=== PATIENT | male | born 1945 | race Caucasian/White ===

== ENCOUNTER 2025-03-30 12:20 | Inpatient (IN) | payer MEDICARE, SELFPAY ==
[2025-03-30 12:58] VITALS: BP 182/95; BP 192/91; PULSE 64; RESP 18; TEMP 36.6; O2SAT 95; BMI 32.3
--- NOTE | 2025-03-30 13:32 | PD.EDRME ---
Rapid Medical Screening Exam RME Arrival date/time: 03/30/25 12:20 Chief Complaint: Shortness of Breath/Dyspnea Time Seen by Provider: 03/30/25 12:27 Vital signs: Vital Signs Temperature 97.9 F 03/30/25 12:58 Pulse Rate 64 03/30/25 12:58 Respiratory Rate 18 03/30/25 12:58 Blood Pressure 182/95 H 03/30/25 12:58 Pulse Oximetry (%) 95 03/30/25 12:58 Oxygen Delivery Method Room Air 03/30/25 12:58 Vital signs reviewed by provider: Yes RME Narrative: 80-year-old male sent in by PCP (Dr. Fleming) for evaluation of dyspnea. Patient reports chest x-ray in clinic today showed pleural effusion. Patient reports worsening dyspnea x 1 week with intermittent chills and substernal chest pain. Patient notes positive flu test x 1 week ago.
--- NOTE | 2025-03-30 13:33 | EKG_ITS ---
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
--- NOTE | 2025-03-30 13:33 | XR_ITS ---
Examination: PA lateral chest 2 views TECHNIQUE: Upright PA lateral chest 2 views Date and time: 03/30/2025 at 1340 hours Comparison May 08, 2023 INDICATIONS: Chest pain shortness of breath beginning 3 days ago. FINDINGS: Normal heart size Central vascular congestion Suspicious for early pneumonia left base Suspicious for early pneumonia right upper lobe Intact osseous structures IMPRESSION: Central vascular congestion Suspicious for early pneumonia left base and right upper lobe
[2025-03-30 14:22] LABS: Basophils # (Auto) 0.0 Thou/mm3 (0.0-0.2); Basophils % (Auto) 0 % (0-2.5); Eosinophils # (Auto) 0.2 Thou/mm3 (0.0-0.5); Eosinophils % (Auto) 2 % (0-10); Hematocrit 31.1 % (41.0-53.0); Hemoglobin 10.3 g/dL (13.5-16.0); Immature Granulocytes Auto 0.17 Thou/mm3 (0.00-0.00); Lymphocytes # (Auto) 1.2 Thou/mm3 (1.0-4.8); Lymphocytes % (Auto) 13 % (10-50); Mean Corpuscular HGB Conc 33.1 g/dl (31.0-37.0); Mean Corpuscular Hemoglobin 30.3 pg (25.0-35.0); Mean Corpuscular Volume 92 fL (80-100); Monocytes # (Auto) 0.7 Thou/mm3 (0.0-0.8); Monocytes % (Auto) 7 % (0-12); Neutrophils # (Auto) 6.7 Thou/mm3 (1.8-7.7); Neutrophils % (Auto) 76 % (37-80); Nucleated Red Blood Cell # 0.00 Thou/mm3 (0.00-0.00); Nucleated Red Blood Cell % 0 /100 WBC (0); Platelet Count 278 Thou/mm3 (140-440); RDW Standard Deviation 42.5 fL (35.1-43.9); Red Blood Count 3.40 Miln/mm3 (4.50-5.90); White Blood Count 8.9 Thou/mm3 (3.8-10.6)
[2025-03-30 14:35] LABS: INR 1.1 (0.9-1.3); Partial Thromboplastin Time 34.5 Seconds (22.0-36.0); Prothrombin Time 12.3 Seconds (9.0-12.2)
[2025-03-30 14:54] LABS: Alanine Aminotransferase 32 U/L (10-49); Albumin, Serum 4.2 gm/dL (3.4-4.8); Albumin/Globulin Ratio 1.4 (1.2-2.2); Alkaline Phosphatase 55 U/L (46-116); Anion Gap 14 (7-16); Aspartate Amino Transferase 18 U/L (0-34); B-Type Natriuretic Peptide 899 pg/mL (0-100); BUN/Creatinine Ratio 11 Ratio (12-20); Bilirubin,Total 0.3 mg/dL (0.3-1.2); Blood Urea Nitrogen 74 mg/dL (9-23); Calcium 9.7 mg/dL (8.3-10.6); Calcium (Corrected) 9.7 mg/dL (8.5-10.1); Carbon Dioxide 18.3 mMol/L (20.0-31.0); Chloride 108 mMol/L (98-107); Creatinine (Component) 6.8 mg/dL (0.6-1.3); Estimated Creatinine Clearance 9.8 mL/min (>60); Globulin 3.0 gm/dL (2.3-3.5); Glucose 89 mg/dL (74-106); LDH (Lactate Dehydrogenase) 191 U/L (120-246); Magnesium 2.0 mg/dL (1.6-2.6); Osmolality,Calculated 300 (275-295); Potassium 5.0 mMol/L (3.4-5.1); Sodium 140 mMol/L (136-145); Total Protein 7.2 gm/dL (5.7-8.2); eGFR 8 See Note
[2025-03-30 15:12] LABS: Troponin I 0.269 ng/mL (0.0-0.045)
[2025-03-30 15:16] LABS: Collection Type, Urine Clean Catch
[2025-03-30 15:28] LABS: Amphetamine/Methamp Scrn,U Negative (Negative); Bacteria,Urine Rare; Barbiturate Screen,Urine Negative (Negative); Benzodiazepines Screen,Urine Negative (Negative); Benzoylecgonine Screen, Ur Negative (Negative); Bilirubin,Urine Negative (Negative); Blood,Urine Trace (Negative); Clarity,Urine Clear (Clear/Hazy); Color,Urine Lt-Yellow (Lt Yel-Yel); Fentanyl Screen,Urine Negative (Negative); Glucose, Urine Negative (Negative); Ketones,Urine Negative (Negative); Leukocyte Esterase,Urine Negative (Negative); Nitrite,Urine Negative (Negative); Opiate Screen,Urine Negative (Negative); PH,Urine 5.5 (5.0-7.0); Protein,Urine 1+ (Neg - Trace); RBC,Urine 1 /hpf (0-3); Specific Gravity,Urine 1.016 (1.001-1.035); Squamous Epithelial Cell,Urine 1 /hpf (0-5); THC Screen,Urine Negative (Negative); Urobilinogen,Urine Negative mg/dL (0.0-1.0); WBC,Urine 3 /hpf (0-5)
[2025-03-30 15:59] LABS: Troponin I 0.267 ng/mL (0.0-0.045)
[2025-03-30 19:35] VITALS: BP 202/120; BP 212/108; PULSE 82; RESP 18; TEMP 36.7; O2SAT 95
[2025-03-30 19:46] VITALS: PULSE 71
[2025-03-30 19:52] VITALS: BP 187/88; PULSE 75; RESP 24; O2SAT 93
[2025-03-30 20:14] LABS: Troponin I 0.276 ng/mL (0.0-0.045)
[2025-03-30] MEDS: ASPIRIN 81 MG CHEW 162 MG PO (20:31)
--- NOTE | 2025-03-30 20:37 | PD.EDSOB ---
ED SOB =RME/HPI General Chief Complaint: Shortness of Breath/Dyspnea Stated Complaint: sent by Dr. Fleming for fluid around lungs Time Seen by Provider: 03/30/25 12:27 Arrival date/time: 03/30/25 12:20 RME / HPI RME / HPI Narrative: 80-year-old male sent in by PCP (Dr. Fleming) for evaluation of dyspnea. Patient reports chest x-ray in clinic today showed pleural effusion. Patient reports worsening dyspnea x 1 week with intermittent chills and substernal chest pain. Patient notes positive flu test x [address] week ago[address] ------- Dr. Perales?s Main ED Evaluation: 80yo male with a history of HTN, HLD presents to the ED after being sent over by his PCP. Patient states he was seen by his PCP, Dr. Fleming in [place], today and was sent over due to having fluid in the lungs . Patient states he's had persistent N/V/D for the last 1 week. Patient reports associated chest pain when he takes a deep breathe, fever, chills, and sweating. Patient denies any hematemesis, hematochezia, melena or any other associated symptoms. He does not have a interpreter. No previous abdominal surgeries. Related Data Home Medications ?Medication ?Instructions ?Recorded ?Confirmed amlodipine 10 mg tablet 10 mg PO QDAY 03/30/25 03/30/25 lisinopril 20 mg tablet 20 mg PO QDAY 03/30/25 03/30/25 simvastatin 20 mg tablet 20 mg PO QPM 03/30/25 03/30/25 Previous Rx's ?Medication ?Instructions ?Recorded ibuprofen 600 mg tablet 600 mg PO TID PRN pain #30 tabs 05/08/23 Allergies Allergy/AdvReac Type Severity Reaction Status Date / Time Sulfa (Sulfonamide Allergy Verified 03/30/25 12:25 Antibiotics) Review of Systems Review of Systems Systems Reviewed: All systems reviewed, normal except as documented Past Medical History Past Medical History CARDIAC: Positive Cardiac Disorders, Hypercholesterolemia and Hypertension; Negative Congestive Heart Failure RESPIRATORY: Negative Chronic Obstructive Pulmonary Disease (COPD) GENITOURINARY: Negative Renal Disease ENDOCRINE: Negative Diabetes Mellitus Type 1 or Diabetes Mellitus Type 2 Surgical History SURGICAL: Positive Hip Sx (RIGHT 2013) Social History SMOKING STATUS: Never smoker ED Exam Narrative Physical exam: GENERAL APPEARANCE: alert and oriented x 4, well-developed, well-nourished, no acute distress VITALS: All vitals were reviewed and the pulse ox is 93% on room air, which is slightly hypoxic according to my interpretation. HEENT: Normocephalic, atraumatic; pupils equal, round, reactive to light; EOMI; mucous membranes pink, moist; oropharynx clear NECK: Supple LUNGS: CTABL; no wheezes, no rales, no rhonchi HEART: Regular rate, regular rhythm; normal S1, S2; no murmurs ABDOMEN: moderately distended; hyperactive BS; soft, no tenderness, no guarding, no rebound; no masses, no organomegaly, no hernia BACK: no CVA tenderness EXTREMITIES: atraumatic; no edema NEUROLOGIC: awake; alert and oriented x4; cranial nerves II-XII grossly intact; no focal sensory or motor deficits PSYCHIATRIC: appropriate mood and affect SKIN: warm, dry, normal color; no rashes Course Quality Measures none Orders Category Date Time Status Bedside Influenza A&B Antigen Test NOW Care 03/30/25 19:51 Completed 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 START 00 Care 03/30/25 19:46 Active EKG (ED ONLY) *Do not use* NOW Care 03/30/25 13:33 Completed Insert [Insert IV] NOW Care 03/30/25 20:48 Active Consult to Nephrology Stat Cons 03/30/25 20:[address] abdomen pelvis wo con Stat Exams 03/30/25 20:37 Completed EKG (ED Only) Stat Exams 03/30/25 13:33 Draft XR chest 2V Stat Exams 03/30/25 13:33 Completed B-Type Natriuretic Peptide Stat Lab 03/30/25 14:10 Completed CBC Stat Lab 03/30/25 14:10 Completed COVID-19 Antigen (In-House) Stat Lab 03/30/25 19:55 Completed Comprehensive Metabolic Panel Stat Lab 03/30/25 14:10 Completed Drug Screen,Urine Stat Lab 03/30/25 14:52 Completed LDH (Lactate Dehydrogenase) Stat Lab 03/30/25 14:10 Completed Lactic Acid [Lactate (Lactic Acid)] Stat Lab 03/30/25 21:22 Completed Magnesium Stat Lab 03/30/25 14:10 Completed Partial Thromboplastin Time Stat Lab 03/30/25 14:10 Completed Procalcitonin Stat Lab 03/30/25 21:22 Completed Prothrombin Time with INR Stat Lab 03/30/25 14:10 Completed Troponin I Stat Lab 03/30/25 14:10 Completed Troponin I Stat Lab 03/30/25 15:30 Completed Troponin I Stat Lab 03/30/25 19:11 Completed Urinalysis Stat Lab 03/30/25 14:52 Completed c diff [Clostridium Difficile PCR] Stat Lab 03/30/25 Ordered Aspirin Chew Med 03/30/25 20:25 Discontinued 162 mg PO X1 ONE Ondansetron Inj [Zofran Inj] Med 03/30/25 20:37 Discontinued 4 mg IVP X1 ONE Sodium Chloride 0.9% 1000 ml [Ns] 1,000 ml Med 03/30/25 20:48 Active IV 75 mls/hr Vital Signs Vital signs: Vital Signs Temperature 97.9 F 03/30/25 12:58 Pulse Rate 64 03/30/25 12:58 Respiratory Rate 18 03/30/25 12:58 Blood Pressure 182/95 H 03/30/25 12:58 Pulse Oximetry (%) 95 03/30/25 12:58 Oxygen Delivery Method Room Air 03/30/25 12:58 Shortness of Breath / Dyspnea MDM Narrative MDM Narrative:: Scribe Attestation: 03/30/25 Margaret Troy am scribing for and in the presence of Dr. Perales. Patient data External records reviewed:: [facility] previous records (Per chart review, patient was seen here on 05/08/23 for acute UTI.) Clinical information provided by:: patient Social determinants that could affect healthcare access:: none Patient has the following chronic illnesses:: HTN, HLD How is presenting disease/condition affected by chronic disease/condition?: uneffected by Evaluation data The following diagnostics were reviewed and interpreted by me:: lab results and radiology exam(s) Lab and/or radiology exams considered but not ordered:: none Interpretation Summary: CBC normal, Creatinine 6.8, BUN 74, Initial troponin 0.269, 2nd troponin 0.267, 3rd troponin 0.276, BNP 899, UA unremarkable, UDS negative. COVID/Influenza negative. EKG done at 1336, NSR, rate of 67, mild T-wave inversion in V1, mild artifact, no acute ischemia, according to my interpretation. [facility] Report Signed Patient: FARIHA LOUIS [facility]. Record#: [id number] Birthdate: 1945 Age/Sex: 80 / M Location: [facility]X Attending Dr: Ordering Physician: Ben Jensen PA-C Date of Service: 03/30/25 Procedure(s): XR chest 2V Accession Number(s): [id number] cc: Ben Jensen PA-C; Bright Macedo MD~ Examination: PA lateral chest 2 views TECHNIQUE: Upright PA lateral chest 2 views Date and time: 03/30/2025 at 1340 hours Comparison May 08, 2023 INDICATIONS: Chest pain shortness of breath beginning 3 days ago. FINDINGS: Normal heart size Central vascular congestion Suspicious for early pneumonia left base Suspicious for early pneumonia right upper lobe Intact osseous structures IMPRESSION: Central vascular congestion Suspicious for early pneumonia left base and right upper lobe Dictated By: Bright Macedo MD Signed By: <Electronically signed by Bright Macedo MD in [place]> 03/30/25 1346 [facility] Report Signed Patient: FARIHA LOUIS [facility]. Record#: [id number] Birthdate: 1945 Age/Sex: 80 / M Location: SERX Attending Dr: Ordering Physician: Germaine Perales MD Date of Service: 03/30/25 Procedure(s): CT abdomen pelvis wo con Accession Number(s): [id number] cc: Bright Macedo MD; NO PRIMARY/FAMILY,PHYSICIAN; Germaine Perales MD~ Examination: CT abdomen and pelvis without contrast. Coronal 3-D reconstructions. Sagittal 2-D reconstructions. Date and time of exam:March 30, 2025, 2055 hours INDICATIONS: Diarrhea abdominal pain today CTDI: vol (mGy): 11. DLP: (mGycm): 716 Technique: Axial images of the abdomen have been obtained, 3 mm slice thickness Intravenous contrast material has not been administered. Low dose protocols were performed. One or more of the following dose reduction techniques were used; automated exposure control, adjustment of the mA and/or KV according to patient size, use of iterative reconstruction technique. Findings: Pulmonary edema, mild in the lung aguilera Mild to moderate enlargement cardiac contour. 17 mm left lobe liver cyst No gallstones No pancreatic mass Perinephric stranding No hydronephrosis renal or ureteral calculi Aorta normal size 12 mm fat-containing umbilical hernia No pericecal inflammatory change No bowel obstruction No diverticulitis Urinary bladder intact Detail in the pelvis is obscured by the right hip hemiarthroplasty Diffuse advanced lumbar degenerative disc disease The rectum is not well visualized but there appears to be rectal wall thickening IMPRESSION: Mild pulmonary edema in the lung aguilera Perinephric stranding. No obstruction or CT findings of appendicitis Rectal wall appears thickened, consider proctitis, recommend elective colonoscopy to exclude early rectal tumor Dictated By: Bright Macedo MD Signed By: <Electronically signed by Bright Macedo MD in [place]> 03/30/25 9211 Medications / Prescriptions Medications or Prescriptions considered but not ordered:: none Medication administrations:: Medication Administration History Sodium Chloride (Ns) 1,000 mls @ 75 mls/hr IV .[id number] [facility] Stop: 04/29/25 20:47 Last Admin: 03/30/25 21:12 Dose: 75 mls/hr Documented By: KIM Discontinued Medications Aspirin (Aspirin 81 Mg Chew) 162 mg PO X1 ONE Stop: 03/30/25 20:26 Last Admin: 03/30/25 20:31 Dose: 162 mg Documented By: KIM Ondansetron HCl (Ondansetron Inj 2 Mg/Ml Inj 2 Ml) 4 mg IVP X1 ONE; Protocol Stop: 03/30/25 20:38 Last Admin: 03/30/25 21:54 Dose: Not Given Documented By: KIM Non-Admin Reason: Patient Refused see above Consultations Consultation(s) initiated? (list below): Yes Consultation #1 (Physician, Specialty, Details): Discussed case with Dr. Watkins from nephrology regarding consultation. Discussed patients ED course, exam findings, labs, and radiology results. Agrees to consult Time: 20:42 Consultation #2 (Physician, Specialty, Details): Discussed case with the resident physician, attending Dr. Morin from Hospitalist service regarding admission. Discussed patients ED course, exam findings, labs, and radiology results. The Hospitalist [agrees] to accept the patient for admission. Time: 22:11 Diagnosis Shortness of Breath Differential Diagnosis: community acquired pneumonia and other (ACS, pleural effusion, colitis, diverticulitis) Most likely diagnosis given after review of the tests above:: acute renal failure Admission Indicated Admission indicated?: indicated Admission Request Was there a request for admission?: Yes Admission Attestation Admission request attestation: Discussed case with [] from Hospitalist service regarding admission. Discussed patients ED course, exam findings, labs, and radiology results. The Hospitalist [agrees,declines] to accept the patient for admission. Disposition Plan Disposition Plan: Admit Discharge Plan Plan Patient Disposition: Admit Acute Care w/in Hospital Prescriptions/Referrals Prescriptions/Med Rec: No Action ibuprofen 600 mg tablet 600 mg PO TID PRN (Reason: pain) Qty: 30 0RF simvastatin 20 mg tablet 20 mg PO QPM lisinopril 20 mg tablet 20 mg PO QDAY amlodipine 10 mg tablet 10 mg PO QDAY Referrals: No Primary/Family,Physician [Primary Care Provider] - In 1 week Problem List Clinical Impression: Acute renal failure (ARF) Patient/Caregiver Discharge Instructions Print Language: Chilean Stand Alone Forms: [facility] Award Info., Patient Portal Info Letter
[2025-03-30 20:43] LABS: COVID-19 Antigen (In-House) Negative (Negative)
[2025-03-30] MEDS: SODIUM CHLORIDE 0.9% 1000 ML 1,000 ML 75 ML IV (21:12)
[2025-03-30 21:34] LABS: Lactate (Lactic Acid) 1.5 mMol/L (0.4-2.0)
[2025-03-30 22:02] LABS: Procalcitonin 0.24 ng/ml (0.0-0.49)
--- NOTE | 2025-03-30 22:57 | ESHP_ITS ---
Documentation for date of: 03/30/25 HPI History of Present Illness Chief complaint: Shortness of breath History of present illness: 80-year-old male with past medical history of hypertension and hyperlipidemia who presented to the ED due to shortness of breath. Patient was sent by his PCP due to possible fluid in the lungs. Patient was diagnosed with influenza about a week ago. But continues to have flulike symptoms with fever and chills. Patient also endorses some nausea and nonbloody vomiting and nonbloody diarrhea onset about 4 days ago. However today he states no diarrhea episodes, nor vomiting episodes. He also states he has dry nonproductive cough with with bilateral lower extremity edema onset that he seemed to notice about 4 to 5 days ago. He does take amlodipine but states that the swelling of lower extremities is not the usual the last few days. He states he does not have a hx of heart failure nor does he see a sales and service consultant and has not had a echocardiogram in the past. At this time patient denies any headache, blurry vision, chest pain, abdominal pain, orthopnea, PND, recent travel, sick contacts. ED course: ED vitals: BP 182/95, HR 64, saturating 95% on room air ED labs: Normocytic anemia, bicarb 18.3, chloride 108, BUN 74, creatinine 6.8, EGFR 8, lactic acid normal, slight elevation in troponins, BNP 899, UA negative for UTI, U tox negative Chest x-ray shows right upper lobe and left base pneumonia with vascular congestion, EKG shows sinus rhythm, PMHx: As above SX Hx: Hip replacement, fever and tibia repairs Social Hx: Denies cigarette use, denies alcohol use, denies illicit substances including THC FH X: Unknown Review of Systems Review of Systems Systems Reviewed: All systems reviewed, normal except as documented Narrative Review of Systems: All 12 systems reviewed and found negative unless otherwise stated in the HPI. Exam Vital Signs Temp Pulse Resp BP Pulse Ox O2 Del Method 98.1 F 75 24 H 187/88 H 93 L Room Air 03/30/25 19:35 03/30/25 19:52 03/30/25 19:52 03/30/25 19:52 03/30/25 19:52 03/30/25 19:52 Narrative Exam Physical Exam GENERAL: NAD, AAOx3 HEENT: Moist mucosa. Eyes open, symmetrical, & clear CARDIO: Heart RRR, no obvious murmurs PULM: No noted coughing/dyspnea CTA B/L, no R/W/R GI: Abdomen soft, nondistended, no pain on palpation. BSx4 SKIN/MSK/EXT: +3 bilateral lower extremity edema, bilateral upper extremity edema, no pain on palpation. Pedal pulses present B/L NEURO: AAOx3, no focal neuro deficits, able to move all 4 extremities Results: Labs 03/31/25 04:41 03/30/25 14:10 Labs: Short CBC 03/30/25 Range/Units 14:10 WBC 8.9 (3.8-10.6) Thou/mm3 Hgb 10.3 L (13.5-16.0) g/dL Hct 31.1 L (41.0-53.0) % Plt Count 278 (140-440) Thou/mm3 BMP 03/30/25 14:10 Sodium 140 Potassium 5.0 Chloride 108 H Carbon Dioxide 18.3 L BUN 74 H Creatinine 6.8 H* Glucose 89 Calcium 9.7 Cardiac Enzymes 03/30/25 03/30/25 03/30/25 Range/Units 14:10 15:30 19:11 Troponin I 0.269 H* 0.267 H* 0.276 H* (0.0-0.045) ng/mL Liver Function 03/30/25 Range/Units 14:10 Total Bilirubin 0.3 (0.3-1.2) mg/dL AST 18 (0-34) U/L ALT 32 (10-49) U/L Alkaline Phosphatase 55 (46-116) U/L Albumin 4.2 (3.4-4.8) gm/dL Urine 03/30/25 Range/Units 14:52 Urine Color Lt-Yellow (Lt Yel-Yel) Urine Clarity Clear (Clear/Hazy) Urine pH 5.5 (5.0-7.0) Ur Specific [place] 1.016 (1.001-1.035) Urine Protein 1+ A (Neg - Trace) Urine Glucose (UA) Negative (Negative) Quality Measures Quality Measures none Advance care planning discussed with:: patient Medications Home Medications and Allergies Home Medications ?Medication ?Instructions ?Recorded ?Confirmed ?Type amlodipine 10 mg tablet 10 mg PO QDAY 03/30/2503/30 History lisinopril 20 mg tablet 20 mg PO QDAY 03/30/2503/30 History simvastatin 20 mg tablet 20 mg PO QPM 03/30/25 History Allergies Allergy/AdvReac Type Severity Reaction Status Date / Time Sulfa (Sulfonamide Allergy Verified 03/30/25 12:25 Antibiotics) Visit Medications Acetaminophen (Acetaminophen 325 Mg Tablet) 650 mg PO Q6H PRN PRN Reason: Fever >99.5 Stop: 04/29/25 22:48 Acetaminophen (Acetaminophen 325 Mg Tablet) 650 mg PO Q6H PRN PRN Reason: PAIN SCALE 1-3 (mild Stop: 04/29/25 22:48 Albuterol/Ipratropium (Albuterol/Ipratropium (Duoneb) Rt Svetlana 3 Ml Nebu) 3 ml INH Q2HR PRN PRN Reason: SHORTNESS OF BREATH OR WHEEZE Stop: 04/29/25 22:48 Albuterol/Ipratropium (Albuterol/Ipratropium (Duoneb) Rt Svetlana 3 Ml Nebu) 3 ml INH Q6HRRT [facility] Stop: 04/30/25 00:59 Bumetanide (Bumetanide Inj 0.25 Mg/Ml Vial 4 Ml) 1 mg IVP QDAY [facility] Stop: 04/30/25 08:59 Enoxaparin Sodium (Enoxaparin Sod Inj 40 Mg/0.4 Ml Syringe) 40 mg SC QDAY [facility] Stop: 04/14/25 08:59 Ondansetron HCl (Ondansetron Inj 2 Mg/Ml Inj 2 Ml) 4 mg IVP Q6H PRN; Protocol PRN Reason: NAUSEA OR VOMITING Stop: 04/29/25 22:48 Sodium Chloride (Sodium Chloride Rt 10% 15 Ml Nebu) 5 ml INH X1 ONE Stop: 03/30/25 22:50 Discontinued Medications Aspirin (Aspirin 81 Mg Chew) 162 mg PO X1 ONE Stop: 03/30/25 20:26 Last Admin: 03/30/25 20:31 Dose: 162 mg Sodium Chloride (Ns) 1,000 mls @ 75 mls/hr IV .[id number] [facility] Stop: 04/29/25 20:47 Last Admin: 03/30/25 21:12 Dose: 75 mls/hr Ondansetron HCl (Ondansetron Inj 2 Mg/Ml Inj 2 Ml) 4 mg IVP X1 ONE; Protocol Stop: 03/30/25 20:38 Last Admin: 03/30/25 21:54 Dose: Not Given Assessment & Plan Plan 80-year-old male with past medical history as stated above who presented to the ED due to flulike symptoms with fever chills, nausea, vomiting, diarrhea. #Acute hypoxic respiratory failure likely secondary to #Community-acquired pneumonia #?Heart failure Presented with clinical signs such as shortness of breath, dyspnea on exertion, bilateral leg swelling Presented with shortness of breath, fever, chills, dry nonproductive cough CXR: Showing vascular congestion, left base, right upper lobe pneumonia CT shows pulmonary edema in bilateral lung aguilera BNP:899 No echo on file ? Vancomycin ? Zosyn ? Follow-up cultures ? Follow-up RSV, cocci ? Follow-up C. difficile ? Breathing treatments as scheduled and as needed ? Echo ordered ? IV Bumex ? Keep K>4, Mg>2 ? Provide oxygen as required ? Strict I's and O's #Acute Kidney injury Was given IV fluids in the ED Baseline creatinine in 2022 was 1.0, current creatinine 6.8 CT abdomen pelvis shows some perinephric stranding no hydronephrosis ? Avoid nephrotoxins ? Renally dose medications ?Renal ultrasound ? Nephrology consulted, appreciate recs #Elevated troponins ? already downtrending no need to trend Chronic conditions: #Hypertension #Hyperlipidemia ?Pending med rec, resume home meds as tolerated Health Maintenance: Disposition: Telemetry Fluids: None Feeding: Low-sodium Thrombo prophylaxis: Lovenox Gastric Ulcer prophylaxis: None CODE STATUS: Full code Case discussed with my attending Dr. Donnell Francis MD PGY-1 Disclaimer: Despite multiple revisions, due to the dictation software being used, the document bellow may not be free of grammatical errors including phonetic/typographic errors. However, this does not deter from our commitment to providing health care in the patient's best interest in mind. Attending Provider Attestation/Addendum 80-year-old male patient. Hypertension hyperlipidemia complaining of shortness of breath and lower extremity edema. The patient recently had influenza flulike illness. The patient is progressively weak pulmonary edema on chest x-ray. He has elevated BUN of 74 and Creatinine 6.8. BP is slightly elevated. EKG showed sinus rhythm. CT scan showed no hydronephrosis no kidney stones. The patient was admitted for decompensated CHF, elevated troponin possible type II NSTEMI he has acute kidney injury.TX. Patient will need cardiology and nephrology consultation.
[2025-03-30 23:15] VITALS: BP 181/88; PULSE 73; RESP 22; TEMP 36.9; O2SAT 93
[2025-03-30 23:43] VITALS: BP 170/88; PULSE 71; PULSE 73; RESP 20; RESP 93; O2SAT 93
[2025-03-30] MEDS: cefTRIAXone/D5w 1gm IV premix 1 GM/50 ML BAG IV (23:49)
[2025-03-30 23:59] LABS: Troponin I 0.249 ng/mL (0.0-0.045)
[2025-03-31] VITALS (16 sets, daily range): BP systolic 138–184; BP diastolic 63–92; PULSE 65–106; RESP 16–91; TEMP 36–36.9; O2SAT 92–100; BMI 32.5; BMI 32.4
[2025-03-31] MEDS: PIPER/TAZO 3.375 GM PREMIX 3.375 GM/50 ML BAG IV (00:03)
[2025-03-31] MEDS: ALBUTEROL/IPRATROPIUM (Duoneb) RT SOL 3 ML NEBU INH ×4 (00:03→18:27)
--- NOTE | 2025-03-31 00:05 | XR_ITS ---
Examination: Retroperitoneal ultrasound, complete Technique: Multiple high resolution grayscale images of the retroperitoneum obtained, including kidneys and bladder. Exam date and time:March 31, 2025 0208 hours INDICATIONS: Acute renal insufficiency on laboratory examination this week FINDINGS: Right kidney 10.9 cm cortex 1.5 cm Minimal dilatation of the renal calyces Left kidney 11.6 cm renal cortex 2.7 cm Minimal dilatation of the renal calyces No renal calculi Contracted urinary bladder IMPRESSION: Limited study. Minimal dilatation of the renal calyces, consider urinary tract infection
--- NOTE | 2025-03-31 00:15 | PC.RT ---
pt unable to provide sputum sample at this time. sputum induction not done due to the pt complaining of chest pain during coughing. Dr Luiza garcia.
[2025-03-31] MEDS: BUMETANIDE INJ 0.25 MG/ML VIAL 4 ML 1 MG IVP ×2 (00:30→08:46)
[2025-03-31] MEDS: VANCOMYCIN/NS 1 GM IVPB 200 ML IV (00:31)
[2025-03-31 00:53] LABS: Respiratory Syncytial Virus Ag Negative (Negative)
--- NOTE | 2025-03-31 01:07 | PC.NURSE ---
REPORT GIVEN TO FLOOR RN PATY
[2025-03-31] MEDS: ACETAMINOPHEN 500 MG TABLET 1000 MG PO (01:45)
--- NOTE | 2025-03-31 03:45 | PRELIM_ITS ---
Renal/Retroperitoneal ultrasound. March 31, 2025 at 0208 hours Clinical history: Acute kidney injury. Technique: Duplex scan of the bilateral renal arterial and venous tree was performed utilizing 2D grayscale imaging, Doppler spectral analysis and color flow. Comparison: No prior study is available for comparison. Findings Right Kidney: The right kidney measures 10.8 cm in length, 5.7 cm in the anterior-posterior diameter, and 5.1 cm in width, with an estimated volume of 168 cm3. Cortical thickness is measured at 1.4 cm. The renal pyramids are noted to be dilated. No hydronephrosis or renal calculi are identified. Corticomedullary differentiation is preserved. Left Kidney: The left kidney measures 11.5 cm in length, 4.1 cm in anterior-posterior diameter, and 5.6 cm in width, with an estimated volume of 143.4 cm3. Cortical thickness is measured at 2.6 cm. Dilated renal pyramids are observed. No hydronephrosis or renal calculi are identified. Corticomedullary differentiation is preserved. Urinary Bladder: The bladder was not full at the time of the exam, and therefore not adequately evaluated. Prostate: Not visualized due to gas and insufficient bladder filling. Impression: 1. Bilateral dilated renal pyramids, of uncertain significance; correlate clinically and consider further evaluation, if clinically indicated. 2. No hydronephrosis or renal calculi identified. 3. Corticomedullary differentiation preserved bilaterally. Report Electronically Signed By: Pennie Kim 03/31/2025 3:44:09 AM [EST]
[2025-03-31 05:33] LABS: Basophils # (Auto) 0.0 Thou/mm3 (0.0-0.2); Basophils % (Auto) 0 % (0-2.5); Eosinophils # (Auto) 0.1 Thou/mm3 (0.0-0.5); Eosinophils % (Auto) 1 % (0-10); Hematocrit 27.7 % (41.0-53.0); Hemoglobin 9.3 g/dL (13.5-16.0); Immature Granulocytes Auto 0.15 Thou/mm3 (0.00-0.00); Lymphocytes # (Auto) 0.8 Thou/mm3 (1.0-4.8); Lymphocytes % (Auto) 8 % (10-50); Mean Corpuscular HGB Conc 33.6 g/dl (31.0-37.0); Mean Corpuscular Hemoglobin 30.4 pg (25.0-35.0); Mean Corpuscular Volume 91 fL (80-100); Monocytes # (Auto) 0.7 Thou/mm3 (0.0-0.8); Monocytes % (Auto) 7 % (0-12); Neutrophils # (Auto) 8.3 Thou/mm3 (1.8-7.7); Neutrophils % (Auto) 83 % (37-80); Nucleated Red Blood Cell # 0.00 Thou/mm3 (0.00-0.00); Nucleated Red Blood Cell % 0 /100 WBC (0); Platelet Count 239 Thou/mm3 (140-440); RDW Standard Deviation 43.2 fL (35.1-43.9); Red Blood Count 3.06 Miln/mm3 (4.50-5.90); White Blood Count 10.0 Thou/mm3 (3.8-10.6)
[2025-03-31] MEDS: PIPER/TAZO 3.375 GM PREMIX 3.375 G/50 ML BAG IV (05:48)
[2025-03-31 05:58] LABS: Alanine Aminotransferase 23 U/L (10-49); Albumin, Serum 3.9 gm/dL (3.4-4.8); Albumin/Globulin Ratio 1.5 (1.2-2.2); Alkaline Phosphatase 47 U/L (46-116); Anion Gap 17 (7-16); Aspartate Amino Transferase 14 U/L (0-34); BUN/Creatinine Ratio 10 Ratio (12-20); Bilirubin,Total 0.3 mg/dL (0.3-1.2); Blood Urea Nitrogen 73 mg/dL (9-23); Calcium 9.7 mg/dL (8.3-10.6); Calcium (Corrected) 9.8 mg/dL (8.5-10.1); Chloride 107 mMol/L (98-107); Creatinine (Component) 7.1 mg/dL (0.6-1.3); Estimated Creatinine Clearance 9.4 mL/min (>60); Globulin 2.6 gm/dL (2.3-3.5); Glucose 88 mg/dL (74-106); Magnesium 2.0 mg/dL (1.6-2.6); Osmolality,Calculated 298 (275-295); Phosphorous 7.2 mg/dL (2.4-5.1); Potassium 4.9 mMol/L (3.4-5.1); Sodium 139 mMol/L (136-145); Total Protein 6.5 gm/dL (5.7-8.2); eGFR 7 See Note
[2025-03-31 06:14] LABS: Carbon Dioxide 14.6 mMol/L (20.0-31.0)
[2025-03-31] MEDS: CITRIC ACID/SODIUM CITR 15 ML UDC (BICITRA) 30 ML PO ×2 (08:45→20:29)
[2025-03-31] MEDS: ENOXAPARIN SOD INJ 30 MG/0.3 ML SYRINGE SC (08:46)
--- NOTE | 2025-03-31 09:23 | PD.RESCONSUL ---
HPI Data of Consult Consult date: 03/31/25 Requesting Physician: Vance Godinez DO Admitting Provider: Jason Jacobo MD Attending Provider: Vance Godinez DO Primary Care Provider: Scott Alexander MD Consult Narrative Reason for consult: VIVEK History of present illness: The patient is a 80-year-old male with a past medical history of hypertension and hyperlipidemia, who came to the emergency room complaining of shortness of breath. Patient had also been complaining of diarrhea for the past few days, patient was diagnosed with influenza a few days ago, continues to have flulike symptoms, associated with fever and chills. Patient reported he had diarrhea about 4 days ago has watery consistency, 3-4 episodes per day, denies blood or mucus in stool. Patient also noted some lower extremity edema over the past few days. Complaining of shortness of breath which is worse with exertion. In the emergency room patient initial vitals BP 182/95, heart rate 64 saturating 95% on room air, initial labs pertinent for anemia, acidosis, BUN 74, creatinine 6.8, lactic acid WNL, BNP 899, urinalysis negative for UTI. Troponin elevated 0.269, Chest x-ray showed pneumonia with vascular congestion. EKG shows sinus rhythm cc:: cc: Vance Godinez DO Review of Systems Review of Systems Systems Reviewed: All systems reviewed, normal except as documented Past Medical History Past Medical History NEUROLOGIC: Negative Neurological Disorders CARDIAC: Positive Cardiac Disorders, Hypercholesterolemia and Hypertension; Negative Congestive Heart Failure RESPIRATORY: Negative Respiratory Disorders, Chronic Obstructive Pulmonary Disease (COPD) or Sleep Apnea GASTROINTESTINAL: Negative Gastrointestinal Disorders GENITOURINARY: Negative Genitourinary Disorders or Renal Disease MUSCULOSKELETAL: Negative Musculoskeletal Disorders ENT: Negative History of ENT Problems ENDOCRINE: Negative Diabetes Mellitus Type 1 or Diabetes Mellitus Type 2 HEMATOLOGIC: Negative Blood Disorders OTHER HISTORY: Negative Hospitalization, Autoimmune Disease, Down Syndrome, Developmental Delay, Shingles, Falls or Blood Transfusions Surgical History SURGICAL: Positive Hip Sx (RIGHT) OTHER SURGICAL HX: As in the history of present illness Social History SMOKING STATUS: Never smoker Exam Vital Signs Temp Pulse Resp BP Pulse Ox O2 Del Method O2 Flow Rate 97.3 F 86 18 152/81 H 94 L Nasal Cannula 1 03/31/25 08:00 03/31/25 08:46 03/31/25 08:00 03/31/25 08:46 03/31/25 08:00 03/31/25 08:00 03/31/25 08:00 Narrative Exam GENERAL: A&Ox3 . Patient looks young for his age, awake cooperative male, Not in acute distress NEURO: no focal neurological deficits HEENT: Atraumatic, Normocephalic. mucous membranes moist. Eyes open, symmetrical, & clear HEART: Normal Heart Sounds LUNGS: No audible rhonchi or crackles, saturating well on room air ABDOMEN: soft, non-distended, non-tender, bowel sounds heard, no guarding or rebound tenderness SKIN: No Rash or ecchymoses EXTREMITIES: Trace pedal edema, no focal neurological deficit noted Results Labs 04/10/25 07:53 04/10/25 07:53 Labs: Short CBC 03/30/25 03/31/25 Range/Units 14:10 04:41 WBC 8.9 10.0 (3.8-10.6) Thou/mm3 Hgb 10.3 L 9.3 L (13.5-16.0) g/dL Hct 31.1 L 27.7 L (41.0-53.0) % Plt Count 278 239 D (140-440) Thou/mm3 BMP 03/30/25 03/31/25 14:10 04:41 Sodium 140 139 Potassium 5.0 4.9 Chloride 108 H 107 Carbon Dioxide 18.3 L 14.6 L* BUN 74 H 73 H Creatinine 6.8 H* 7.1 H* Glucose 89 88 Calcium 9.7 9.7 Cardiac Enzymes 03/30/25 03/30/25 03/30/25 Range/Units 14:10 15:30 19:11 Troponin I 0.269 H* 0.267 H* 0.276 H* (0.0-0.045) ng/mL 03/30/25 Range/Units 23:09 Troponin I 0.249 H* (0.0-0.045) ng/mL Liver Function 03/30/25 03/31/25 Range/Units 14:10 04:41 Total Bilirubin 0.3 0.3 (0.3-1.2) mg/dL AST 18 14 (0-34) U/L ALT 32 23 (10-49) U/L Alkaline Phosphatase 55 47 (46-116) U/L Albumin 4.2 3.9 (3.4-4.8) gm/dL Urine 03/30/25 Range/Units 14:52 Urine Color Lt-Yellow (Lt Yel-Yel) Urine Clarity Clear (Clear/Hazy) Urine pH 5.5 (5.0-7.0) Ur Specific [place] 1.016 (1.001-1.035) Urine Protein 1+ A (Neg - Trace) Urine Glucose (UA) Negative (Negative) Quality Measures Quality Measures none Advance care planning discussed with:: patient Medications Home Medications and Allergies Home Medications ?Medication ?Instructions ?Recorded ?Confirmed ?Type amlodipine 10 mg tablet 10 mg PO QDAY 03/30/25 03/30/25 History lisinopril 20 mg tablet 20 mg PO QDAY 03/30/25 03/30/25 History Allergies Allergy/AdvReac Type Severity Reaction Status Date / Time Sulfa (Sulfonamide Allergy Verified 04/05/25 10:40 Antibiotics) Visit Medications Acetaminophen (Acetaminophen 325 Mg Tablet) 650 mg PO Q6H PRN PRN Reason: Fever >99.5 Stop: 04/29/25 22:48 Acetaminophen (Acetaminophen 500 Mg Tablet) 1,000 mg PO Q6H PRN PRN Reason: PAIN SCALE 1-3 (mild Stop: 04/30/25 01:40 Last Admin: 03/31/25 01:45 Dose: 1,000 mg Albuterol/Ipratropium (Albuterol/Ipratropium (Duoneb) Rt Svetlana 3 Ml Nebu) 3 ml INH Q2HR PRN PRN Reason: SHORTNESS OF BREATH OR WHEEZE Stop: 04/29/25 22:48 Albuterol/Ipratropium (Albuterol/Ipratropium (Duoneb) Rt Svetlana 3 Ml Nebu) 3 ml INH Q6HRRT SPARKLE Stop: 04/30/25 00:59 Last Admin: 03/31/25 06:25 Dose: 3 ml Amlodipine Besylate (Amlodipine Besylate 5 Mg Tablet) 10 mg PO QDAY SPARKLE Stop: 04/29/25 23:49 Last Admin: 03/31/25 08:46 Dose: 10 mg Atorvastatin Calcium (Atorvastatin Calcium 20 Mg Tablet) 40 mg PO HS SPARKLE Stop: 04/30/25 20:59 Bumetanide (Bumetanide Inj 0.25 Mg/Ml Vial 4 Ml) 1 mg IVP QDAY [facility] Stop: 04/30/25 00:14 Last Admin: 03/31/25 08:46 Dose: 1 mg Citric Acid/Sodium Citrate (Citric Acid/Sodium Citr 15 Ml Udc (Bicitra)) 30 ml PO BID [facility] Stop: 04/30/25 08:59 Last Admin: 03/31/25 08:45 Dose: 30 ml Enoxaparin Sodium (Enoxaparin Sod Inj 30 Mg/0.3 Ml Syringe) 30 mg SC QDAY [facility] Stop: 04/14/25 08:59 Last Admin: 03/31/25 08:46 Dose: 30 mg Piperacillin/Tazobactam/Dextrose (Zosyn) 3.375 g in 50 mls @ 12.5 mls/hr IV Q8HR [facility] Stop: 04/06/25 05:59 Last Admin: 03/31/25 05:48 Dose: 12.5 mls/hr Vancomycin/Sodium Chloride (Vancomycin/Ns 750 Mg Ivpb) 750 mg in 150 mls @ 120 mls/hr IV X1 ONE Stop: 03/31/25 11:14 Lisinopril (Lisinopril 20 Mg Tablet) 20 mg PO QDAY [facility] Stop: 04/29/25 23:49 Last Admin: 03/31/25 08:46 Dose: 20 mg Ondansetron HCl (Ondansetron Inj 2 Mg/Ml Inj 2 Ml) 4 mg IVP Q6H PRN; Protocol PRN Reason: NAUSEA OR VOMITING Stop: 04/29/25 22:48 Pharmacy Consult (Vancomycin Pharmacy To Dose 1 Each Each) 1 each IV QDAY [facility] Stop: 04/30/25 08:59 Pharmacy Consult (Pharmacy Renal Dose Adjustment 1 Ea) 1 each XX PRN PRN PRN Reason: CONSULT Stop: 04/30/25 07:32 Discontinued Medications Acetaminophen (Acetaminophen 325 Mg Tablet) 650 mg PO Q6H PRN PRN Reason: PAIN SCALE 1-3 (mild Stop: 04/29/25 22:48 Acetaminophen (Acetaminophen 325 Mg Tablet) 1,000 mg PO Q6H PRN PRN Reason: PAIN SCALE 1-3 (mild Stop: 04/29/25 22:48 Aspirin (Aspirin 81 Mg Chew) 162 mg PO X1 ONE Stop: 03/30/25 20:26 Last Admin: 03/30/25 20:31 Dose: 162 mg Azithromycin (Azithromycin 250 Mg Tablet) 500 mg PO QDAY [facility] Stop: 04/07/25 08:59 Bumetanide (Bumetanide Inj 0.25 Mg/Ml Vial 4 Ml) 1 mg IVP QDAY [facility] Stop: 04/30/25 08:59 Enoxaparin Sodium (Enoxaparin Sod Inj 40 Mg/0.4 Ml Syringe) 40 mg SC QDAY [facility] Stop: 04/14/25 08:59 Sodium Chloride (Ns) 1,000 mls @ 75 mls/hr IV .[id number] [facility] Stop: 04/29/25 20:47 Last Admin: 03/30/25 21:12 Dose: 75 mls/hr Ceftriaxone Sodium/Dextrose (Rocephin/D5w 1gm Iv Premix) 1 gm in 50 mls @ 100 mls/hr IV QDAY [facility] Stop: 04/06/25 23:33 Last Infusion: 03/31/25 00:15 Dose: Infused Piperacillin/Tazobactam/Dextrose (Zosyn) 3.375 g in 50 mls @ 100 mls/hr IV Q8HR [facility] Stop: 04/06/25 05:59 Last Admin: 03/31/25 04:25 Dose: Not Given Piperacillin/Tazobactam/Dextrose (Zosyn) 3.375 gm in 50 mls @ 100 mls/hr IV X1 ONE Stop: 03/31/25 00:14 Last Infusion: 03/31/25 00:31 Dose: Infused Vancomycin/Sodium Chloride (Vancomycin/Ns 1 Gm Ivpb) 200 mls @ 120 mls/hr IV X1 ONE Stop: 03/31/25 01:24 Last Admin: 03/31/25 00:31 Dose: 120 mls/hr Ondansetron HCl (Ondansetron Inj 2 Mg/Ml Inj 2 Ml) 4 mg IVP X1 ONE; Protocol Stop: 03/30/25 20:38 Last Admin: 03/30/25 21:54 Dose: Not Given Sodium Chloride (Sodium Chloride Rt 10% 15 Ml Nebu) 5 ml INH X1 ONE Stop: 03/30/25 22:50 Assessment & Plan Plan #VIVEK likely secondary to ATN Urine output documented as male, but patient reported going up to restroom for urination. Patient likely has ATN, other differentials include hemolytic uremic syndrome secondary to E. coli diarrhea versus TTP versus prerenal VIVEK. Patient reported no history of kidney disorders, reported he follows with Dr. Liang, last follow-up was a few months ago and normal labs were reported. ? Strict input output monitoring ? Avoid nephrotoxic drugs, renally dose antibiotics ? Careful observation and monitoring, for worsening renal function or urine output. Currently saturating well on room air. Can continue to observe, reevaluate tomorrow if need for hemodialysis. ? Ultrasound renal bilateral ordered #Pneumonia Chest x-ray reported as early pneumonia, along with central vascular congestion, per patient did have flulike symptoms and fever in the past few days ?Management per primary team #Type II OK ?Management per primary team #Hypertension ?Hold off on home medication lisinopril, can continue amlodipine Plan of care discussed with Dr. Roland Campbell PGY2 Attending Provider Attestation/Addendum Patient seen and examined with resident physician Dr. Campbell. Note reviewed, agree with findings and recommendations with the few changes made. Patient presented with significant azotemia and a 10-day history of diarrhea. Suspect he is in ATN. Will monitor urine output closely. If no improvement might need temporary dialysis. Dr. Quan will be covering for me Thank you for the consult.
--- NOTE | 2025-03-31 09:25 | XR_ITS ---
Examination: Nuclear medicine kidney imaging flow and function multiple studies Date and time: April 04, 2025 1238 hours INDICATIONS: Chills fever flank pain 4 days, elevated creatinine on laboratory examination this week TECHNIQUE AND FINDINGS: Intravenous ministration 10.6 mCi technetium 99m MAG3 Flow and function curves generated to 60 minutes Normal bilateral flow Minimal bilateral renal function, right renal activity 78% at 20 minutes, left renal activity 82% at 20 minutes IMPRESSION: Bilateral severely impaired renal function
[2025-03-31] MEDS: VANCOMYCIN/NS 750 MG IVPB 750 MG/150 ML BAG 120 MG IV (09:40)
[2025-03-31 09:46] LABS: Base Excess, Venous -8 (-3-3); O2 Saturation, Venous 87 % (96-97); PCO2, Venous 32 mmHg (36-56); PO2, Venous 53 mmHg (15-58); pH, Venous 7.33 (7.33-7.66)
[2025-03-31] MEDS: ACETAMINOPHEN 325 MG TABLET 650 MG PO (12:00)
[2025-03-31 12:06] LABS: Cocci Serology, IgM Negative (Negative)
[2025-03-31] MEDS: AZITHROMYCIN INJ 500 MG in SODIUM CHLORIDE 0.9% 250 ML 250 ML 250 MG IV (12:19)
[2025-03-31] MEDS: SODIUM CHLORIDE 0.9% 500 ML 500 ML 999 ML IV (12:55)
--- NOTE | 2025-03-31 14:30 | PC.SS ---
Rounding note: pending consult for acute kidney renal failure.
--- NOTE | 2025-03-31 15:45 | PD.RESPRO ---
Documentation for date of: 03/31/25 Subjective Subjective Interval history: Patient is an overnight admit. Pt is seen and examined at bedside this morning. Patient is currently saturating on room air denies any shortness of breath. Patient does not use any home oxygen. Patient denies any chest pain palpitations or dizziness. Patient denies any abdominal pain but does endorse to significant diarrhea he was having for almost a week, along with decreased p.o. intake. Patient denies any known history of CHF. Patient endorses to feeling significantly better than when he first came into the ED. Vitals are stable, labs are significant for BUN 73, creatinine 7.1, bicarb 14.6, Hgb 9.3, Hct 27.7. CT imaging showed proctititis therefore will consult GI specialist. Nephrology is consulted for now patient likely has ATN will continue to monitor. At this time per nephrology patient does not need temporary dialysis. Exam Vital Signs Temp Pulse Resp BP Pulse Ox O2 Del Method O2 Flow Rate 97.5 F 85 20 150/77 H 97 Nasal Cannula 1 03/31/25 12:00 03/31/25 12:10 03/31/25 12:10 03/31/25 12:00 03/31/25 12:10 03/31/25 12:00 03/31/25 12:00 Narrative Exam GENERAL: A&Ox3 . Awake cooperative male, Not in acute distress NEURO: no focal neurological deficits HEENT: Atraumatic, Normocephalic. mucous membranes moist. Eyes open, symmetrical, & clear HEART: Normal Heart Sounds LUNGS: Clear to auscultation with no wheezing or crackles. ABDOMEN: soft, non-distended, non-tender, bowel sounds heard, no guarding or rebound tenderness SKIN: No Rash or ecchymoses EXTREMITIES: No edema, tenderness, able to move all 4 extremities, pedal pulses palpated Objective Labs 03/31/25 04:41 03/31/25 04:41 Labs: Laboratory Results - last 24 hr 03/30/25 03/30/25 03/30/25 15:30 19:11 19:55 WBC RBC Hgb Hct MCV MCH MCHC RDW Std Deviation Plt Count Neut % (Auto) Lymph % (Auto) [place] % (Auto) Eos % (Auto) Baso % (Auto) Neut # (Auto) Lymph # (Auto) [place] # (Auto) Eos # (Auto) Baso # (Auto) Immature Gran # (Auto) Absolute Nucleated RBC Immature Gran % Nucleated RBC % VBG pH VBG pCO2 VBG pO2 VBG O2 Sat ([place]) VBG Base Excess Sodium Potassium Chloride Carbon Dioxide Anion Gap BUN Creatinine Estim Creat Clear Calc eGFR BUN/Creatinine Ratio Glucose Calculated Osmolality Lactic Acid Calcium Corrected Calcium Phosphorus Magnesium Total Bilirubin AST ALT Alkaline Phosphatase Troponin I 0.267 H* 0.276 H* Total Protein Albumin Globulin Albumin/Globulin Ratio Procalcitonin Coccidioides IgM Ab RSV Rapid SARS-CoV-2 Ag (Rapid) Negative 03/30/25 03/30/25 03/31/25 21:22 23:09 00:07 WBC RBC Hgb Hct MCV MCH MCHC RDW Std Deviation Plt Count Neut % (Auto) Lymph % (Auto) [place] % (Auto) Eos % (Auto) Baso % (Auto) Neut # (Auto) Lymph # (Auto) [place] # (Auto) Eos # (Auto) Baso # (Auto) Immature Gran # (Auto) Absolute Nucleated RBC Immature Gran % Nucleated RBC % VBG pH VBG pCO2 VBG pO2 VBG O2 Sat ([place]) VBG Base Excess Sodium Potassium Chloride Carbon Dioxide Anion Gap BUN Creatinine Estim Creat Clear Calc eGFR BUN/Creatinine Ratio Glucose Calculated Osmolality Lactic Acid 1.5 Calcium Corrected Calcium Phosphorus Magnesium Total Bilirubin AST ALT Alkaline Phosphatase Troponin I 0.249 H* Total Protein Albumin Globulin Albumin/Globulin Ratio Procalcitonin 0.24 Coccidioides IgM Ab RSV Rapid Negative SARS-CoV-2 Ag (Rapid) 03/31/25 03/31/25 03/31/25 00:20 04:41 07:22 WBC 10.0 RBC 3.06 L Hgb 9.3 L Hct 27.7 L MCV 91 MCH 30.4 MCHC 33.6 RDW Std Deviation 43.2 Plt Count 239 D Neut % (Auto) 83 H Lymph % (Auto) 8 L [place] % (Auto) 7 Eos % (Auto) 1 Baso % (Auto) 0 Neut # (Auto) 8.3 H Lymph # (Auto) 0.8 L [place] # (Auto) 0.7 Eos # (Auto) 0.1 Baso # (Auto) 0.0 Immature Gran # (Auto) 0.15 H Absolute Nucleated RBC 0.00 Immature Gran % 2 H Nucleated RBC % 0 VBG pH 7.33 VBG pCO2 32 L VBG pO2 53 VBG O2 Sat ([place]) 87 L VBG Base Excess -8 L Sodium 139 Potassium 4.9 Chloride 107 Carbon Dioxide 14.6 L* Anion Gap 17 H BUN 73 H Creatinine 7.1 H* Estim Creat Clear Calc 9.4 L eGFR 7 L* BUN/Creatinine Ratio 10 L Glucose 88 Calculated Osmolality 298 H Lactic Acid Calcium 9.7 Corrected Calcium 9.8 Phosphorus 7.2 H Magnesium 2.0 Total Bilirubin 0.3 AST 14 ALT 23 Alkaline Phosphatase 47 Troponin I Total Protein 6.5 Albumin 3.9 Globulin 2.6 Albumin/Globulin Ratio 1.5 Procalcitonin Coccidioides IgM Ab Negative RSV Rapid SARS-CoV-2 Ag (Rapid) ABG Interpretation ABG results: 03/31/25 07:22 VBG pH 7.33 VBG pCO2 32 L VBG pO2 53 VBG Base Excess -8 L Quality Measures Quality Measures none Advance care planning discussed with:: patient and spouse Assessment & Plan Assessment Current Active Medications: Generic Name Dose Route Start Last Admin Trade Name Freq PRN Reason Stop Dose Admin Acetaminophen 650 mg 03/30/25 22:49 03/31/25 12:00 Acetaminophen 325 Mg Tablet PO 04/29/25 22:48 650 mg Q6H PRN Administration Fever >99.5 Acetaminophen 1,000 mg 03/31/25 01:43 03/31/25 01:45 Acetaminophen 500 Mg Tablet PO 04/30/25 01:40 1,000 mg Q6H PRN Administration PAIN SCALE 1-3 (mild Albuterol/Ipratropium 3 ml 03/30/25 22:49 Albuterol/Ipratropium (Duoneb) Rt Svetlana 3 Ml Nebu INH 04/29/25 22:48 Q2HR PRN SHORTNESS OF BREATH OR WHEEZE Albuterol/Ipratropium 3 ml 03/31/25 01:00 03/31/25 12:10 Albuterol/Ipratropium (Duoneb) Rt Svetlana 3 Ml Nebu INH 04/30/25 00:59 3 ml Q6HRRT SPARKLE Administration Amlodipine Besylate 10 mg 03/30/25 23:50 03/31/25 08:46 Amlodipine Besylate 5 Mg Tablet PO 04/29/25 23:49 10 mg QDAY SPARKLE Administration Atorvastatin Calcium 40 mg 03/31/25 21:00 Atorvastatin Calcium 20 Mg Tablet PO 04/30/25 20:59 HS SPARKLE Citric Acid/Sodium Citrate 30 ml 03/31/25 09:00 03/31/25 08:45 Citric Acid/Sodium Citr 15 Ml Udc (Bicitra) PO 04/30/25 08:59 30 ml BID SPARKLE Administration Enoxaparin Sodium 30 mg 03/31/25 09:00 03/31/25 08:46 Enoxaparin Sod Inj 30 Mg/0.3 Ml Syringe SC 04/14/25 08:59 30 mg QDAY SPARKLE Administration Azithromycin 500 mg/ Sodium 250 mls @ 250 mls/hr 03/31/25 10:18 03/31/25 12:19 Chloride IV 04/03/25 10:17 250 mls/hr QDAY SPARKLE Administration Ceftriaxone Sodium/Dextrose 1 gm in 50 mls @ 100 mls/hr 03/31/25 21:00 Rocephin/D5w 1gm Iv Premix IV 04/07/25 20:59 HS SPARKLE Lisinopril 20 mg 03/30/25 23:50 03/31/25 08:46 Lisinopril 20 Mg Tablet PO 04/29/25 23:49 20 mg QDAY SPARKLE Administration Ondansetron HCl 4 mg 03/30/25 22:49 Ondansetron Inj 2 Mg/Ml Inj 2 Ml IVP 04/29/25 22:48 Q6H PRN NAUSEA OR VOMITING Protocol Pharmacy Consult 1 each 03/31/25 07:33 Pharmacy Renal Dose Adjustment 1 Ea XX 04/30/25 07:32 PRN PRN CONSULT Plan Mr. Brian is a 80-year-old male with past medical history as stated above who presented to the ED due to flu-like symptoms with fever chills, nausea, vomiting, diarrhea. #Acute Kidney injury #Anion Gap Metabolic Acidosis -Pt was given IV fluids in the ED, and given 500cc NS bolus on floor Baseline Creatinine (in 2022) was 1.0), on admission creatinine 6.8 -> 7.1, GFR 7 and BUN 73 VBG: pH 7.33, pCO2 32, PO253, O2 saturation 87% CT abdomen pelvis shows some perinephric stranding no hydronephrosis. However patient denies any flank pain, dysuria or urinary urgency. -Renal ultrasound shows minimal dilation of the renal calyces Plan: -Avoid nephrotoxins and renally dose medications -Patient started on Bicitra 30 mL p.o. twice daily -Will continue to closely monitor CMP, per nephrology at this time patient does not need urgent dialysis -Nuclear renal ultrasound ordered -Nephrology consulted, appreciate recs #Acute hypoxic respiratory failure secondary to #Fluid overload versus #Community-acquired pneumonia -Although patient does not have a white count, patient have flulike symptoms for the last 1 week, which can the patient has risk of superimposed bacterial infection -Chest x-ray is suspicious for early pneumonia left base and right upper lobe as well as congestion -Echo done on 03/31-EF 65% with dilated IVC and moderate bilateral atrial enlargement Plan -Supplemental oxygen ordered -Patient was given Bumex on admission which is discontinued today as patient does not appear to be fluid overloaded anymore -Strict I's and O's -Azithromycin 500mg 03/31- -ceftriaxone 1g 03/31- - Urine and blood cultures pending #Diarrhea -Patient states for the past 1 week he has had diarrhea but denies any changes to his diet. Denies any recent antibiotic use -Last diarrheal episode 7 PM on 03/30 Plan: -Stool cultures ordered -C. difficile PCR ordered -Contact precaution ordered #Proctitis -CT of abdomen/Pelvis shows rectal wall thickening -Consulted GI Dr. Martinez, appreciate recommendations #Elevated troponins -downtrending 0.267 -> .249 , no need to further trend #Primary Hypertension #Hyperlipidemia - Resumed home lisinopril, statin and amlodipine Health Maintenance Disposition: Telemetry DVT Prophylaxis: enoxaparin 30mg Qdaily GI Prophylaxis: not indicated Diet: low sodium diet Lines: Peripheral lines Code status: Full Assessment and plan discussed with my attending physician Dr. Herbert Mcbride (PGY-1)- Internal medicine resident Attending Provider Attestation/Addendum I have discussed and was present for the essential components of the history, physical examination, diagnosis, and treatment plan with the resident. I agree with the patient's care as documented by the resident and amended herein by me. Dakotah Godinez DO Although this document has been carefully reviewed, there may still be some phonetic and other typographical errors. These errors are purely grammatical due to imperfections in the software program and should not be construed in any way to compromise the substance of the patient's medical care during this visit.
--- NOTE | 2025-03-31 16:15 | PC.SS ---
Initial assessment: patient is a 80-year old male admitted for SOB. Patient was alert and oriented to self, place and situation. Patient was able to confirm his home demographic information. Patient resides at home with his , Melony. Patient identified his as emergency contact and alternate medical decision maker. Patient reports being independent with ADL's. Patient denies use of home DME. Patient informs his PCP is Provider: Garth Fleming. Patient informs preferred pharmacy is [facility] on [address]. Patient states the discharge plan is to return home. Patient denies any current needs. Patient informs his will transport him home at discharge. D/c plan: home Next of kin: Melony
[2025-03-31] MEDS: HYDROcodone/APAP 5/325 TABLET 1 TAB PO (17:45)
--- NOTE | 2025-03-31 18:52 | PD.IMCONS ---
HPI Data of Consult Requesting Physician: Vance Godinez DO Primary Care Provider: Scott Alexander MD Consult Narrative Reason for consult: abnormal CTAP History of present illness: 80 years old male presented the hospital with shortness of breath nausea vomiting diarrhea of 4-day duration He was not feeling good and his PCP Dr. Fleming sent him to the emergency room for consideration evaluation of fluid in the lungs and shortness of breath During routine workup patient had a CT scan of the abdomen pelvis without contrast that showed thickening of the rectal wall consistent either with proctitis or infiltrating malignancy I have been consulted Adam CT scan also showed mild pulmonary edema perinephric stranding Patient has a history of essential hypertension hyperlipidemia status post hip replacement Patient was admitted with acute hypoxic respiratory failure pneumonia congestive heart failure VIVEK and elevated troponin Diarrhea has gotten better Nausea vomiting getting better And patient is feeling better cc:: cc: Vance Godinez DO Review of Systems Review of Systems Systems Reviewed: All systems reviewed, normal except as documented Past Medical History Surgical History OTHER SURGICAL HX: As in the history of present illness Meds Home Medications and Allergies Home Medications ?Medication ?Instructions ?Recorded ?Confirmed ?Type amlodipine 10 mg tablet 10 mg PO QDAY 03/30/25 03/30/25 History lisinopril 20 mg tablet 20 mg PO QDAY 03/30/25 03/30/25 History simvastatin 20 mg tablet 20 mg PO QPM 03/30/25 03/30/25 History Allergies Allergy/AdvReac Type Severity Reaction Status Date / Time Sulfa (Sulfonamide Allergy Verified 03/30/25 12:25 Antibiotics) Exam Vital Signs Temp Pulse Resp BP Pulse Ox O2 Del Method O2 Flow Rate 97.7 F 86 20 138/63 H 99 Room Air 1 03/31/25 15:53 03/31/25 18:27 03/31/25 18:27 03/31/25 15:53 03/31/25 18:27 03/31/25 15:53 03/31/25 12:00 Constitutional Comments: Chronically ill-appearing Routine Respiratory Exam Comments: Scattered rhonchi Routine Abdominal Exam Comments: Soft nontender Results Labs 03/31/25 04:41 03/31/25 04:41 Labs: Short CBC 03/31/25 Range/Units 04:41 WBC 10.0 (3.8-10.6) Thou/mm3 Hgb 9.3 L (13.5-16.0) g/dL Hct 27.7 L (41.0-53.0) % Plt Count 239 D (140-440) Thou/mm3 BMP 03/31/25 04:41 Sodium 139 Potassium 4.9 Chloride 107 Carbon Dioxide 14.6 L* BUN 73 H Creatinine 7.1 H* Glucose 88 Calcium 9.7 Cardiac Enzymes 03/30/25 03/30/25 Range/Units 19:11 23:09 Troponin I 0.276 H* 0.249 H* (0.0-0.045) ng/mL Liver Function 03/31/25 Range/Units 04:41 Total Bilirubin 0.3 (0.3-1.2) mg/dL AST 14 (0-34) U/L ALT 23 (10-49) U/L Alkaline Phosphatase 47 (46-116) U/L Albumin 3.9 (3.4-4.8) gm/dL ABG Interpretation ABG results: 03/31/25 07:22 VBG pH 7.33 VBG pCO2 32 L VBG pO2 53 VBG Base Excess -8 L Assessment and Plan Additional Assessment & Plan Additional Plan: # Abnormal CT scan of the abdomen pelvis showing thickening of the rectal wall differential diagnoses include Proctitis due to underlying inflammatory bowel disease Unlikely infiltrating malignancy Possibly under distention of the rectum Suggestions Patient has multiple medical issues going on Let him improve Will consider fiberoptic colonoscopy prior to discharge Other medical problems include VIVEK pulmonary edema resolving Congestive heart failure improving Acute hypoxic respiratory failure improving Pneumonia Elevated troponin Thank you very much for the opportunity to participate in the care of this patient
[2025-03-31] MEDS: cefTRIAXone/D5w 1gm IV premix 1 GM/50 ML BAG IV (20:30)
[2025-03-31] MEDS: ATORVASTATIN CALCIUM 20 MG TABLET 40 MG PO (20:30)
--- NOTE | 2025-03-31 22:49 | ECHO_ITS ---
Transthoracic Echo Report Ht (in): 67 Wt (lb): 208 Exam Location: Echo Lab Status: Inpatient Courtroom Deputy: Ev Razo Indications: Procedure Performed: BP: 184 / 92 HR: 71 Technical Quality: Technically Difficult MEASUREMENTS (Male / Female) Normal Values 2D ECHO LV Diastolic Diameter PLAX 5.1 cm 4.2 - 5.9 / 3.9 - 5.3 cm LV Systolic Diameter PLAX 3.3 cm IVS Diastolic Thickness 1.5 cm 0.6 - 1.0 / 0.6 - 0.9 cm LVPW Diastolic Thickness 1.5 cm 0.6 - 1.0 / 0.6 - 0.9 cm LV Relative Wall Thickness 0.6 LA Volume Index 36.7 cm?/m? 16 - 28 cm?/m? Ascending Aorta Diameter 3.1 cm DOPPLER AV Peak Velocity 129.0 cm/s AV Peak Gradient 6.7 mmHg LVOT Peak Velocity 125.0 cm/s LVOT Peak Gradient 6.3 mmHg MV Area PHT 2.4 cm? Mitral E Point Velocity 66.5 cm/s Mitral A Point Velocity 57.2 cm/s Mitral E to A Ratio 1.2 LV E' Lateral Velocity 8.3 cm/s Mitral E to LV E' Lateral Ratio 8.0 LV E' Septal Velocity 5.9 cm/s Mitral E to LV E' Septal Ratio 11.3 PV Peak Velocity 84.2 cm/s PV Peak Gradient 2.8 mmHg FINDINGS Left Ventricle Normal left ventricular size and systolic function with no obvious regional wall motion abnormalities. Mild left ventricular hypertrophy. Normal left ventricular diastolic filling pattern for age. The ejection fraction is visually estimated at 60 %. Right Ventricle The right ventricle is normal in size and systolic function. The estimated right ventricular systolic pressure can not be determined due to innadequate Doppler signal. Left Atrium The left atrial cavity size is moderately increased. Right Atrium The right atrial cavity size is moderately increased. Atrial Septum The interatrial septum appears normal with no evidence of a shunt. Aorta The aorta is normal by two-dimensional, color flow and Doppler interrogation. Mitral Valve Mild mitral annular calcification. There is no significant mitral valve regurgitation, stenosis or prolapse. Aortic Valve The aortic valve is trileaflet and normal by two-dimensional, color flow and Doppler interrogation. There is no significant aortic valve regurgitation. Tricuspid Valve The tricuspid valve is normal by two-dimensional, color flow and Doppler interrogation. There is no significant tricuspid valve regurgitation. Pulmonic Valve The pulmonic valve is not well visualized. There is no significant pulmonic valve regurgitation. Vessels The pulmonary artery appears normal. The inferior vena cava is dilated. Pericardium The pericardium is normal by two-dimensional imaging. There is no significant pericardial effusion. CONCLUSIONS Indications: Lower Extremity Swelling Normal LV size and function. Mild LVH. Estimated EF 65%. Normal RV. Moderate TARA. Mild MAC. Dilated IVC. No Pericardial Effusion. Oksana Arthur (Electronically Signed) Final Date: 31 March 2025 13:38
[2025-04-01] VITALS (27 sets, daily range): BP systolic 144–170; BP diastolic 73–98; PULSE 61–91; RESP 15–22; TEMP 36–37; O2SAT 89–99; BMI 32.4
[2025-04-01] MEDS: ALBUTEROL/IPRATROPIUM (Duoneb) RT SOL 3 ML NEBU INH ×3 (00:12→12:42)
[2025-04-01 06:19] LABS: Basophils # (Auto) 0.0 Thou/mm3 (0.0-0.2); Basophils % (Auto) 0 % (0-2.5); Eosinophils # (Auto) 0.2 Thou/mm3 (0.0-0.5); Eosinophils % (Auto) 2 % (0-10); Hematocrit 28.8 % (41.0-53.0); Hemoglobin 9.6 g/dL (13.5-16.0); Immature Granulocytes Auto 0.26 Thou/mm3 (0.00-0.00); Lymphocytes # (Auto) 0.7 Thou/mm3 (1.0-4.8); Lymphocytes % (Auto) 7 % (10-50); Mean Corpuscular HGB Conc 33.3 g/dl (31.0-37.0); Mean Corpuscular Hemoglobin 30.4 pg (25.0-35.0); Mean Corpuscular Volume 91 fL (80-100); Monocytes # (Auto) 0.7 Thou/mm3 (0.0-0.8); Monocytes % (Auto) 8 % (0-12); Neutrophils # (Auto) 7.9 Thou/mm3 (1.8-7.7); Neutrophils % (Auto) 80 % (37-80); Nucleated Red Blood Cell # 0.00 Thou/mm3 (0.00-0.00); Nucleated Red Blood Cell % 0 /100 WBC (0); Platelet Count 301 Thou/mm3 (140-440); RDW Standard Deviation 42.0 fL (35.1-43.9); Red Blood Count 3.16 Miln/mm3 (4.50-5.90); White Blood Count 9.9 Thou/mm3 (3.8-10.6)
[2025-04-01 06:47] LABS: Alanine Aminotransferase 22 U/L (10-49); Albumin, Serum 3.7 gm/dL (3.4-4.8); Albumin/Globulin Ratio 1.2 (1.2-2.2); Alkaline Phosphatase 47 U/L (46-116); Anion Gap 15 (7-16); Aspartate Amino Transferase 13 U/L (0-34); BUN/Creatinine Ratio 9 Ratio (12-20); Bilirubin,Total 0.2 mg/dL (0.3-1.2); Blood Urea Nitrogen 72 mg/dL (9-23); Calcium 9.1 mg/dL (8.3-10.6); Calcium (Corrected) 9.3 mg/dL (8.5-10.1); Carbon Dioxide 19.3 mMol/L (20.0-31.0); Chloride 107 mMol/L (98-107); Creatinine (Component) 7.8 mg/dL (0.6-1.3); Estimated Creatinine Clearance 8.4 mL/min (>60); Globulin 3.0 gm/dL (2.3-3.5); Glucose 101 mg/dL (74-106); Magnesium 2.0 mg/dL (1.6-2.6); Osmolality,Calculated 302 (275-295); Phosphorous 6.8 mg/dL (2.4-5.1); Potassium 4.2 mMol/L (3.4-5.1); Sodium 141 mMol/L (136-145); Total Protein 6.7 gm/dL (5.7-8.2); Vancomycin,Random 15.5 mcg/mL; eGFR 7 See Note
--- NOTE | 2025-04-01 07:54 | PC.NURSE ---
MD Godinez made aware that the patient has not had a BM since admission, gave orders to cancel C-diff orders and to take the patient off precautions. ADRY Davenport made aware and ORLIN Bermeo.
[2025-04-01] MEDS: HYDROcodone/APAP 5/325 TABLET 1 TAB PO (08:49)
[2025-04-01] MEDS: CITRIC ACID/SODIUM CITR 15 ML UDC (BICITRA) 30 ML PO ×2 (08:49→20:24)
[2025-04-01] MEDS: ENOXAPARIN SOD INJ 30 MG/0.3 ML SYRINGE SC (08:50)
[2025-04-01] MEDS: AZITHROMYCIN INJ 500 MG in SODIUM CHLORIDE 0.9% 250 ML 250 ML 250 MG IV (08:50)
--- NOTE | 2025-04-01 12:09 | PD.RESPRO ---
Documentation for date of: 04/01/25 Subjective Subjective Interval history: No acute overnight events reported. Pt is seen and examined at bedside this morning. Pt is currently saturating above 94% on 4L oxygen. Pt denies any shortness of breath, chest or abdominal pain. Pt had a bowel movement this morning which is semi formed, endorses to resolution of diarrhea, therefore will discontinue c. diff precaution and cancel c diff PCR. Labs are significant for Hgb 9.6, Hct 28.8, Bicarb 19.3, BUN 72, Creatinine 7.8, GFR 7, Phosphorus 6.8. I/O 1400/1030 mL last 24 hours. Per nephrology will order Vascath insertion by the ICU team for pt to undergo a dialysis session today. Will continue to monitor daily labs ad renal function. Exam Vital Signs Temp Pulse Resp BP Pulse Ox O2 Del Method O2 Flow Rate 98.1 F 74 20 155/86 H 89 L Nasal Cannula 4 04/01/25 08:00 04/01/25 08:49 04/01/25 08:00 04/01/25 08:49 04/01/25 08:00 04/01/25 08:00 04/01/25 09:00 Narrative Exam GENERAL: A&Ox3 . Awake, Not in acute distress NEURO: no focal neurological deficits HEENT: Atraumatic, Normocephalic. mucous membranes moist. Eyes open, symmetrical, & clear HEART: Normal Heart Sounds LUNGS: Clear to auscultation with no wheezing or crackles. ABDOMEN: soft, non-distended, non-tender, bowel sounds heard, no guarding or rebound tenderness SKIN: No Rash or ecchymoses EXTREMITIES: No edema, tenderness, able to move all 4 extremities, pedal pulses palpated Objective Labs 04/01/25 05:18 04/01/25 05:18 Labs: Laboratory Results - last 24 hr 04/01/25 05:18 WBC 9.9 RBC 3.16 L Hgb 9.6 L Hct 28.8 L MCV 91 MCH 30.4 MCHC 33.3 RDW Std Deviation 42.0 Plt Count 301 D Neut % (Auto) 80 Lymph % (Auto) 7 L [place] % (Auto) 8 Eos % (Auto) 2 Baso % (Auto) 0 Neut # (Auto) 7.9 H Lymph # (Auto) 0.7 L [place] # (Auto) 0.7 Eos # (Auto) 0.2 Baso # (Auto) 0.0 Immature Gran # (Auto) 0.26 H Absolute Nucleated RBC 0.00 Immature Gran % 3 H Nucleated RBC % 0 Sodium 141 Potassium 4.2 D Chloride 107 Carbon Dioxide 19.3 L Anion Gap 15 BUN 72 H Creatinine 7.8 H* D Estim Creat Clear Calc 8.4 L eGFR 7 L* BUN/Creatinine Ratio 9 L Glucose 101 Calculated Osmolality 302 H Calcium 9.1 Corrected Calcium 9.3 Phosphorus 6.8 H Magnesium 2.0 Total Bilirubin 0.2 L AST 13 ALT 22 Alkaline Phosphatase 47 Total Protein 6.7 Albumin 3.7 Globulin 3.0 Albumin/Globulin Ratio 1.2 Random Vancomycin 15.5 ABG Interpretation ABG results: 03/31/25 07:22 VBG pH 7.33 VBG pCO2 32 L VBG pO2 53 VBG Base Excess -8 L Quality Measures Quality Measures none Advance care planning discussed with:: patient and spouse Assessment & Plan Assessment Current Active Medications: Generic Name Dose Route Start Last Admin Trade Name Freq PRN Reason Stop Dose Admin Acetaminophen 650 mg 03/30/25 22:49 03/31/25 12:00 Acetaminophen 325 Mg Tablet PO 04/29/25 22:48 650 mg Q6H PRN Administration Fever >99.5 Acetaminophen 1,000 mg 03/31/25 01:43 03/31/25 01:45 Acetaminophen 500 Mg Tablet PO 04/30/25 01:40 1,000 mg Q6H PRN Administration PAIN SCALE 1-3 (mild Hydrocodone Bitart/Acetaminophen 1 tab 03/31/25 17:17 04/01/25 08:49 Hydrocodone/Apap 5/325 Tablet PO 04/05/25 17:16 1 tab Q6HR PRN Administration moderate pain 4-6 Albuterol/Ipratropium 3 ml 03/30/25 22:49 Albuterol/Ipratropium (Duoneb) Rt Svetlana 3 Ml Nebu INH 04/29/25 22:48 Q2HR PRN SHORTNESS OF BREATH OR WHEEZE Albuterol/Ipratropium 3 ml 03/31/25 01:00 04/01/25 06:18 Albuterol/Ipratropium (Duoneb) Rt Svetlana 3 Ml Nebu INH 04/30/25 00:59 3 ml Q6HRRT SPARKLE Administration Amlodipine Besylate 10 mg 03/30/25 23:50 04/01/25 08:49 Amlodipine Besylate 5 Mg Tablet PO 04/29/25 23:49 10 mg QDAY SPARKLE Administration Atorvastatin Calcium 40 mg 03/31/25 21:00 03/31/25 20:30 Atorvastatin Calcium 20 Mg Tablet PO 04/30/25 20:59 40 mg HS SPARKLE Administration Citric Acid/Sodium Citrate 30 ml 03/31/25 09:00 04/01/25 08:49 Citric Acid/Sodium Citr 15 Ml Udc (Bicitra) PO 04/30/25 08:59 30 ml BID SPARKLE Administration Enoxaparin Sodium 30 mg 03/31/25 09:00 04/01/25 08:50 Enoxaparin Sod Inj 30 Mg/0.3 Ml Syringe SC 04/14/25 08:59 30 mg QDAY SPARKLE Administration Azithromycin 500 mg/ Sodium 250 mls @ 250 mls/hr 03/31/25 10:18 04/01/25 08:50 Chloride IV 04/03/25 10:17 250 mls/hr QDAY SPARKLE Administration Ceftriaxone Sodium/Dextrose 1 gm in 50 mls @ 100 mls/hr 03/31/25 21:00 03/31/25 20:30 Rocephin/D5w 1gm Iv Premix IV 04/07/25 20:59 100 mls/hr HS SPARKLE Administration Albumin Human 25 gm in 100 mls @ 100 mls/min 04/01/25 10:03 Albuminar-25 Ivpb IV PRN PRN DIALYSIS Labetalol HCl 10 mg 04/01/25 07:56 Labetalol Inj 5 Mg/Ml Vial 20 Ml IVP 05/01/25 07:59 Q4HR PRN SBP > 160mmHg Lisinopril 20 mg 03/30/25 23:50 03/31/25 08:46 Lisinopril 20 Mg Tablet PO 04/29/25 23:49 20 mg QDAY SPARKLE Administration Ondansetron HCl 4 mg 03/30/25 22:49 Ondansetron Inj 2 Mg/Ml Inj 2 Ml IVP 04/29/25 22:48 Q6H PRN NAUSEA OR VOMITING Protocol Pharmacy Consult 1 each 03/31/25 07:33 Pharmacy Renal Dose Adjustment 1 Ea XX 04/30/25 07:32 PRN PRN CONSULT Plan Mr. Brian is a 80-year-old male with past medical history as stated above who presented to the ED due to flu-like symptoms with fever chills, nausea, vomiting, diarrhea. #Acute Kidney injury #New onset hemodialysis s/p Vascath placed on 04/01/26 #Anion Gap Metabolic Acidosis- improving -Pt was given IV fluids in the ED, and given 500cc NS bolus on floor Baseline Creatinine (in 2022) was 1.0), on admission creatinine 6.8 -> 7.1, GFR 7 and BUN 73 VBG: pH 7.33, pCO2 32, PO253, O2 saturation 87% CT abdomen pelvis shows some perinephric stranding no hydronephrosis. However patient denies any flank pain, dysuria or urinary urgency. -Renal ultrasound shows minimal dilation of the renal calyces Plan: -Avoid nephrotoxins and renally dose medications -Temporary Vas-Cath is placed on 04/01/2025 patient will undergo session of dialysis today -Patient started on Bicitra 30 mL p.o. twice daily -Will continue to closely monitor CMP, per nephrology at this time patient does not need urgent dialysis -Nuclear renal ultrasound ordered -Nephrology consulted, appreciate recs #Acute hypoxic respiratory failure secondary to #Fluid overload versus #Community-acquired pneumonia -Although patient does not have a white count, patient have flulike symptoms for the last 1 week, which can the patient has risk of superimposed bacterial infection -Chest x-ray is suspicious for early pneumonia left base and right upper lobe as well as congestion -Echo done on 03/31-EF 65% with dilated IVC and moderate bilateral atrial enlargement Plan -Supplemental oxygen ordered -Patient was given Bumex on admission which is discontinued today as patient does not appear to be fluid overloaded anymore -Strict I's and O's -Azithromycin 500mg 03/31- -ceftriaxone 1g 03/31- - Blood cultures no growth at 24 hrs #Diarrhea-resolved -Patient states for the past 1 week he has had diarrhea but denies any changes to his diet. Denies any recent antibiotic use -Last diarrheal episode 7 PM on 03/30 Plan: -Stool cultures ordered -C. difficile PCR ordered- canceled due to pt had a formed stool -Contact precaution ordered- discontinued #Proctitis -CT of abdomen/Pelvis shows rectal wall thickening -Consulted GI Dr. Martinez, appreciate recommendations #Elevated troponins -downtrending 0.267 -> .249 , no need to further trend #Primary Hypertension #Hyperlipidemia - Resumed home lisinopril, statin and amlodipine Health Maintenance Disposition: Telemetry DVT Prophylaxis: enoxaparin 30mg Qdaily GI Prophylaxis: not indicated Diet: low sodium diet Lines: Peripheral lines Code status: Full Assessment and plan discussed with my attending physician Dr. Herbert Mcbride (PGY-1)- Internal medicine resident Attending Provider Attestation/Addendum I have discussed and was present for the essential components of the history, physical examination, diagnosis, and treatment plan with the resident. I agree with the patient's care as documented by the resident and amended herein by me. Dakotah Godinez DO. Patient seen and evaluated this AM. No acute events overnight, vital signs stable, patient afebrile in the AM. No subjective complaints per the patient. Blood pressure bit elevated this morning before meds, 166/83 mmHg, I/O 1160/2080 mL last 24 hours. Significant labs include a stable hemoglobin at 9.6, slightly improved bicarb at 19, BUN 72 and an uptrending creatinine is 7.8. Considering the patient's worsening kidney function, we did reach out to nephrology this morning to start dialysis in which they agree. Will attempt to have the ICU team place a dialysis catheter and start HD today. Patient's echocardiogram demonstrated normal LV size and function with an EF of 65%. I did cancel the patient's C. difficile testing as the patient has not had a BM since he has been here, diarrhea has resolved. Urine culture still pending. Will continue ceftriaxone and azithromycin for pneumonia and suspected pyelonephritis as well as Bicitra to help improve the patient's acidosis. Appreciate all specialist recommendations, will continue to monitor closely. Although this document has been carefully reviewed, there may still be some phonetic and other typographical errors. These errors are purely grammatical due to imperfections in the software program and should not be construed in any way to compromise the substance of the patient's medical care during this visit.
--- NOTE | 2025-04-01 12:11 | XR_ITS ---
Examination: AP chest single view Technique one AP portable semiupright chest single view Date and time: April 01, 2025, 1221 hrs. Comparison 07/30/2025 Indications: Dialysis catheter placement. Findings: Left internal jugular temporary dialysis catheter tip SVC No pneumothorax Opacity fairly diffusely in the right lung consistent with pneumonia Mild enlargement cardiac contour. Impression: Left internal jugular temporary dialysis catheter satisfactory position, no pneumothorax
--- NOTE | 2025-04-01 12:11 | ESOP_ITS ---
<Statement entered by Jd Sharpe MD - 04/03/25 01:49> Attending Attestation: I was present for entire procedure. No immediate complications. Patient tolerated procedure well. Minimal blood loss. PROCEDURES: Procedure Date / Time 04/01/25 1211 Procedure Narrative Procedure Narrative: PROCEDURE: Left IJ Temporary Dialysis Catheter INDICATION: Emergent Hemodialysis PROCEDURE TEACHING ASSOCIATE : Dr Soliz ATTENDING PHYSICIAN : Dr Sharpe CONSENT : Informed consent was obtained from Patient, with discussion regarding the procedure. I explained the following: a. Nature of the procedure or treatment and who will perform the procedure or treatment b. Necessity for procedure and the possible benefits. c. Risks and complications (most common and serious) d. Alternative treatments and the risks, benefits and side effects of each (including no treatment). e. Likelihood of the patient achieving his/her goals without this procedure and surgery treatment f. Problems that might occur during the recuperation g. Conflicts of interest, if any PROCEDURE SUMMARY: The Central Line Venous Catheter Insertion Practices form was completed. Starting with the first handwash prior to starting sterile technique. A time out was performed. My hands were washed immediately prior to the procedure. I wore a surgical cap, mask with protective eyewear, full gown and sterile gloves throughout the procedure. The patient was placed in Trendelenburg position. Left chest region was prepped using chlorhexidine scrub and draped in sterile fashion using a full drape and sterile probe cover and sterile gel employed. The medial and lateral heads of the sternocliedomastoid muscle were identified as was the carotid pulse. The Left Internal Jugular vein was identified using the ultrasound. Anesthesia was achieved over the vein using 1% lidocaine. Using real-time out of plane guidance, the introducer needle was inserted into the Right Internal Jugular Vein by ultrasound. A small incision was made at the skin surface with a scalpel and the introducer needle was exchanged for a dilator over the guidewire. After appropriate dilation was obtained, the dilator was exchanged over the wire for a double lumen temporary dialysis catheter. The wire was removed and the catheter was sutured in place at skin. A sterile sobraview shield was placed over the catheter at the insertion site. The patient tolerated the procedure without any hemodynamic compromise. At time of procedure completion, all ports aspirated and flushed properly. Estimated blood loss is ~ 5 ml. Post-procedure chest x-ray confirmed appropriate placement Under the supervision of my attending Dr Annemarie Soliz MD ([id number])
[2025-04-01 13:27] LABS: Cocci Serology, IgG Negative (Negative)
[2025-04-01] MEDS: ONDANSETRON INJ 2 MG/ML INJ 2 ML 4 MG IVP (14:36)
[2025-04-01] MEDS: TUBERCULIN PPD INJ 5 UNIT/0.1 ML DOSE ID (14:36)
--- NOTE | 2025-04-01 15:37 | PC.NURSE ---
Addendum entered by Jose Romano RN 04/01/25 15:47: PT HAD APPOX. 50ML BLOOD LOSS, PT DENIES ALL S/S OF ANEMIA DENYING SOB, RIVERA, LETHARGY OR DISCOMFORT. PER MD WILL RECHECK HEMATOLOGY. Original Note: TX PAUSED, PARTIAL BLOOD RETURNED D/T CLOTTING R/T INCREASED COUNTERPERSON. ON ASSESSMENT ARTERIAL PORT UNABLE TO ASPIRATE, PORT WAS THEN USED VENOUS RETURN LINE. 15 MIN INTO TX COUNTERPERSON INCREASED AND WAS UNABLE TO BE FIXED DESPITE ALL INTERVENTIONS. UPON ATTEMPT TO RETURN BLOOD ONLY ARTERIAL LINE WAS ABLE TO BE RETURNED. ICU MD NOTIFIED W/ ORDER TO CATHFLOW BOTH PORTS LET DWELL FOR 30 MIN AND ATTEMPT TO RESSUME TX, WILL CARRY OUT ORDERS. MD IBARRA NOTIFIED.
[2025-04-01] MEDS: CATHFLO (ALTEPLASE) INJ 2 MG, Sterile Water 2.2 ML INDWELLCAT ×2 (15:50)
--- NOTE | 2025-04-01 16:02 | PC.SS ---
Per rounding note, pt has PNE and kidney functioning is worsening. Dr. Godinez believes the pt will no longer need dialysis after this hospital stay. Stint for cardio will be placed as well.
--- NOTE | 2025-04-01 16:17 | PD.IMPROG ---
Documentation for date of: 04/01/25 Subjective Subjective Interval history: Patient has a left IJ hemodialysis catheter placed in today Will be undergoing hemodialysis Exam Vital Signs Temp Pulse Resp BP Pulse Ox O2 Del Method O2 Flow Rate 98.6 F 75 18 158/77 H 96 Nasal Cannula 4 04/01/25 14:51 04/01/25 15:25 04/01/25 14:51 04/01/25 15:25 04/01/25 14:51 04/01/25 12:00 04/01/25 14:51 Objective Labs 04/01/25 05:18 04/01/25 05:18 Labs: Laboratory Results - last 24 hr 03/31/25 04/01/25 00:20 05:18 WBC 9.9 RBC 3.16 L Hgb 9.6 L Hct 28.8 L MCV 91 MCH 30.4 MCHC 33.3 RDW Std Deviation 42.0 Plt Count 301 D Neut % (Auto) 80 Lymph % (Auto) 7 L [place] % (Auto) 8 Eos % (Auto) 2 Baso % (Auto) 0 Neut # (Auto) 7.9 H Lymph # (Auto) 0.7 L [place] # (Auto) 0.7 Eos # (Auto) 0.2 Baso # (Auto) 0.0 Immature Gran # (Auto) 0.26 H Absolute Nucleated RBC 0.00 Immature Gran % 3 H Nucleated RBC % 0 Sodium 141 Potassium 4.2 D Chloride 107 Carbon Dioxide 19.3 L Anion Gap 15 BUN 72 H Creatinine 7.8 H* D Estim Creat Clear Calc 8.4 L eGFR 7 L* BUN/Creatinine Ratio 9 L Glucose 101 Calculated Osmolality 302 H Calcium 9.1 Corrected Calcium 9.3 Phosphorus 6.8 H Magnesium 2.0 Total Bilirubin 0.2 L AST 13 ALT 22 Alkaline Phosphatase 47 Total Protein 6.7 Albumin 3.7 Globulin 3.0 Albumin/Globulin Ratio 1.2 Random Vancomycin 15.5 Coccidioides IgG Ab Negative Impressions Impression: Abnormal CT AP with proctitis Hold of any invasive GI workup at the moment ABG Interpretation ABG results: 03/31/25 07:22 VBG pH 7.33 VBG pCO2 32 L VBG pO2 53 VBG Base Excess -8 L Assessment & Plan A&P Narrative # Abnormal CT scan of the abdomen pelvis showing thickening of the rectal wall differential diagnoses include Proctitis due to underlying inflammatory bowel disease Unlikely infiltrating malignancy Possibly under distention of the rectum Suggestions Patient has multiple medical issues going on Let him improve Will consider fiberoptic colonoscopy prior to discharge Other medical problems include VIVEK pulmonary edema resolving Congestive heart failure improving Acute hypoxic respiratory failure improving Pneumonia Elevated troponin Thank you very much for the opportunity to participate in the care of this patient Time Spent With Patient Time: Total time spent is greater than 50% in coordination of care (as documented) at patient's floor/unit and/or counseling patient:
--- NOTE | 2025-04-01 17:03 | PC.NURSE ---
TX RESUMED W/O COMPLICATIONS, WILL CONT. TO MONITOR
[2025-04-01 18:05] LABS: Basophils # (Auto) 0.0 Thou/mm3 (0.0-0.2); Basophils % (Auto) 0 % (0-2.5); Eosinophils # (Auto) 0.2 Thou/mm3 (0.0-0.5); Eosinophils % (Auto) 2 % (0-10); Hematocrit 28.0 % (41.0-53.0); Hemoglobin 9.7 g/dL (13.5-16.0); Immature Granulocytes Auto 0.16 Thou/mm3 (0.00-0.00); Lymphocytes # (Auto) 0.6 Thou/mm3 (1.0-4.8); Lymphocytes % (Auto) 7 % (10-50); Mean Corpuscular HGB Conc 34.6 g/dl (31.0-37.0); Mean Corpuscular Hemoglobin 30.5 pg (25.0-35.0); Mean Corpuscular Volume 88 fL (80-100); Monocytes # (Auto) 0.6 Thou/mm3 (0.0-0.8); Monocytes % (Auto) 7 % (0-12); Neutrophils # (Auto) 7.0 Thou/mm3 (1.8-7.7); Neutrophils % (Auto) 82 % (37-80); Nucleated Red Blood Cell # 0.00 Thou/mm3 (0.00-0.00); Nucleated Red Blood Cell % 0 /100 WBC (0); Platelet Count 272 Thou/mm3 (140-440); RDW Standard Deviation 41.0 fL (35.1-43.9); Red Blood Count 3.18 Miln/mm3 (4.50-5.90); White Blood Count 8.5 Thou/mm3 (3.8-10.6)
[2025-04-01] MEDS: HEPARIN SOD INJ 1000 UNIT/ML VIAL 10 ML 3100 UNIT INDWELLCAT (19:22)
[2025-04-01] MEDS: LABETALOL INJ 5 MG/ML VIAL 20 ML 10 MG IVP (20:23)
[2025-04-01] MEDS: ATORVASTATIN CALCIUM 20 MG TABLET 40 MG PO (20:23)
[2025-04-01] MEDS: cefTRIAXone/D5w 1gm IV premix 1 GM/50 ML BAG IV (20:23)
[2025-04-01] MEDS: ACETAMINOPHEN 500 MG TABLET 1000 MG PO (20:24)
[2025-04-02] VITALS (24 sets, daily range): BP systolic 123–161; BP diastolic 63–107; PULSE 55–81; RESP 14–24; TEMP 36.7–37.2; O2SAT 92–99; BMI 32.4
[2025-04-02] MEDS: ALBUTEROL/IPRATROPIUM (Duoneb) RT SOL 3 ML NEBU INH ×4 (01:35→18:42)
[2025-04-02 06:10] LABS: Basophils # (Auto) 0.0 Thou/mm3 (0.0-0.2); Basophils % (Auto) 0 % (0-2.5); Eosinophils # (Auto) 0.3 Thou/mm3 (0.0-0.5); Eosinophils % (Auto) 4 % (0-10); Hematocrit 27.7 % (41.0-53.0); Hemoglobin 9.4 g/dL (13.5-16.0); Immature Granulocytes Auto 0.10 Thou/mm3 (0.00-0.00); Lymphocytes # (Auto) 0.8 Thou/mm3 (1.0-4.8); Lymphocytes % (Auto) 10 % (10-50); Mean Corpuscular HGB Conc 33.9 g/dl (31.0-37.0); Mean Corpuscular Hemoglobin 30.1 pg (25.0-35.0); Mean Corpuscular Volume 89 fL (80-100); Monocytes # (Auto) 0.9 Thou/mm3 (0.0-0.8); Monocytes % (Auto) 11 % (0-12); Neutrophils # (Auto) 5.9 Thou/mm3 (1.8-7.7); Neutrophils % (Auto) 73 % (37-80); Nucleated Red Blood Cell # 0.00 Thou/mm3 (0.00-0.00); Nucleated Red Blood Cell % 0 /100 WBC (0); Platelet Count 265 Thou/mm3 (140-440); RDW Standard Deviation 41.8 fL (35.1-43.9); Red Blood Count 3.12 Miln/mm3 (4.50-5.90); White Blood Count 8.0 Thou/mm3 (3.8-10.6)
[2025-04-02 06:55] LABS: Alanine Aminotransferase 20 U/L (10-49); Albumin, Serum 3.6 gm/dL (3.4-4.8); Albumin/Globulin Ratio 1.2 (1.2-2.2); Alkaline Phosphatase 44 U/L (46-116); Anion Gap 11 (7-16); Aspartate Amino Transferase 14 U/L (0-34); BUN/Creatinine Ratio 7 Ratio (12-20); Bilirubin,Total 0.2 mg/dL (0.3-1.2); Blood Urea Nitrogen 46 mg/dL (9-23); Calcium 9.0 mg/dL (8.3-10.6); Calcium (Corrected) 9.3 mg/dL (8.5-10.1); Carbon Dioxide 24.0 mMol/L (20.0-31.0); Chloride 106 mMol/L (98-107); Creatinine (Component) 6.5 mg/dL (0.6-1.3); Estimated Creatinine Clearance 10.0 mL/min (>60); Globulin 2.9 gm/dL (2.3-3.5); Glucose 101 mg/dL (74-106); Magnesium 1.9 mg/dL (1.6-2.6); Osmolality,Calculated 293 (275-295); Phosphorous 6.8 mg/dL (2.4-5.1); Potassium 4.0 mMol/L (3.4-5.1); Sodium 141 mMol/L (136-145); Total Protein 6.5 gm/dL (5.7-8.2); eGFR 8 See Note
--- NOTE | 2025-04-02 11:25 | PC.NURSE ---
TX TERMINATED 5 MIN EARLY D/T INCREASED 3D MODELER DESPITE ALL INTERVENTIONS. POST RINSE BACK CLOTTING NOTED TO VENOUS CHAMBER. PT DENIED ALL COMPLAINTS, ALL BLOOD RETURNED.
[2025-04-02] MEDS: HEPARIN SOD INJ 1000 UNIT/ML VIAL 10 ML 3100 UNIT INDWELLCAT (11:48)
[2025-04-02] MEDS: CITRIC ACID/SODIUM CITR 15 ML UDC (BICITRA) 30 ML PO ×2 (11:49→20:21)
[2025-04-02] MEDS: ACETAMINOPHEN 500 MG TABLET 1000 MG PO (11:49)
[2025-04-02] MEDS: ENOXAPARIN SOD INJ 30 MG/0.3 ML SYRINGE SC (11:49)
[2025-04-02] MEDS: AZITHROMYCIN INJ 500 MG in SODIUM CHLORIDE 0.9% 250 ML 250 ML 250 MG IV (11:50)
--- NOTE | 2025-04-02 12:00 | ESPR_ITS ---
Documentation for date of: 04/02/25 Subjective Subjective Interval history: No acute events overnight.?Patient seen and examined at bedside this AM at dialysis.?Patient reports that he had a good sleep and rested better than he had in the last couple weeks. He denies any chest pain, shortness of breath, nausea, dizziness, or other symptoms. Per nursing, BP has been stable.?Patient had 1L removal yesterday and will have about 1L removal today. Labs and vitals were reviewed. Patient is on 4L nasal cannula. Labs show BUN 46, creatinine 6.5, GFR 8. Patient's anion gap metabolic acidosis resolving. Anion gap is 11 and Bicarb is 24. Will continue with dialysis sessions. Nephro following. Patient endorses that he is urinating well. No further complaints at this time. Review of systems otherwise negative except what is mentioned above. Exam Vital Signs Temp Pulse Resp BP Pulse Ox O2 Del Method O2 Flow Rate 98.9 F 60 18 147/82 H 94 L Nasal Cannula 4 04/02/25 11:38 04/02/25 11:50 04/02/25 11:38 04/02/25 11:50 04/02/25 11:38 04/02/25 08:00 04/02/25 11:38 Narrative Exam GENERAL: A&Ox3 and conversational. Awake, Not in acute distress NEURO: no focal neurological deficits HEENT: Atraumatic, Normocephalic. mucous membranes moist. Eyes open, symmetrical, & clear HEART: Normal Heart Sounds LUNGS: Clear to auscultation with no wheezing or crackles. ABDOMEN: soft, non-distended, non-tender, bowel sounds heard, no guarding or rebound tenderness SKIN: No Rash or ecchymoses EXTREMITIES: No edema, tenderness, able to move all 4 extremities, pedal pulses palpated Objective Labs 04/02/25 05:26 04/02/25 05:26 Labs: Laboratory Results - last 24 hr 03/31/25 04/01/25 04/02/25 00:20 17:37 05:26 WBC 8.5 8.0 RBC 3.18 L 3.12 L Hgb 9.7 L 9.4 L Hct 28.0 L 27.7 L MCV 88 89 MCH 30.5 30.1 MCHC 34.6 33.9 RDW Std Deviation 41.0 41.8 Plt Count 272 265 Neut % (Auto) 82 H 73 Lymph % (Auto) 7 L 10 [place] % (Auto) 7 11 Eos % (Auto) 2 4 Baso % (Auto) 0 0 Neut # (Auto) 7.0 5.9 Lymph # (Auto) 0.6 L 0.8 L [place] # (Auto) 0.6 0.9 H Eos # (Auto) 0.2 0.3 Baso # (Auto) 0.0 0.0 Immature Gran # (Auto) 0.16 H 0.10 H Absolute Nucleated RBC 0.00 0.00 Immature Gran % 2 H 1 H Nucleated RBC % 0 0 Sodium 141 Potassium 4.0 Chloride 106 Carbon Dioxide 24.0 Anion Gap 11 BUN 46 H Creatinine 6.5 H* D Estim Creat Clear Calc 10.0 L eGFR 8 L* BUN/Creatinine Ratio 7 L Glucose 101 Calculated Osmolality 293 Calcium 9.0 Corrected Calcium 9.3 Phosphorus 6.8 H Magnesium 1.9 Total Bilirubin 0.2 L AST 14 ALT 20 Alkaline Phosphatase 44 L Total Protein 6.5 Albumin 3.6 Globulin 2.9 Albumin/Globulin Ratio 1.2 Coccidioides IgG Ab Negative ABG Interpretation ABG results: 03/31/25 07:22 VBG pH 7.33 VBG pCO2 32 L VBG pO2 53 VBG Base Excess -8 L Quality Measures Quality Measures none Advance care planning discussed with:: patient Assessment & Plan Assessment Current Active Medications: Generic Name Dose Route Start Last Admin Trade Name Freq PRN Reason Stop Dose Admin Acetaminophen 650 mg 03/30/25 22:49 03/31/25 12:00 Acetaminophen 325 Mg Tablet PO 04/29/25 22:48 650 mg Q6H PRN Administration Fever >99.5 Acetaminophen 1,000 mg 03/31/25 01:43 04/02/25 11:49 Acetaminophen 500 Mg Tablet PO 04/30/25 01:40 1,000 mg Q6H PRN Administration PAIN SCALE 1-3 (mild Hydrocodone Bitart/Acetaminophen 1 tab 03/31/25 17:17 04/01/25 08:49 Hydrocodone/Apap 5/325 Tablet PO 04/05/25 17:16 1 tab Q6HR PRN Administration moderate pain 4-6 Albuterol/Ipratropium 3 ml 03/30/25 22:49 Albuterol/Ipratropium (Duoneb) Rt Svetlana 3 Ml Nebu INH 04/29/25 22:48 Q2HR PRN SHORTNESS OF BREATH OR WHEEZE Albuterol/Ipratropium 3 ml 03/31/25 01:00 04/02/25 07:12 Albuterol/Ipratropium (Duoneb) Rt Svetlana 3 Ml Nebu INH 04/30/25 00:59 3 ml Q6HRRT SPARKLE Administration Amlodipine Besylate 10 mg 03/30/25 23:50 04/02/25 11:50 Amlodipine Besylate 5 Mg Tablet PO 04/29/25 23:49 10 mg QDAY SPARKLE Administration Atorvastatin Calcium 40 mg 03/31/25 21:00 04/01/25 20:23 Atorvastatin Calcium 20 Mg Tablet PO 04/30/25 20:59 40 mg HS SPARKLE Administration Citric Acid/Sodium Citrate 30 ml 03/31/25 09:00 04/02/25 11:49 Citric Acid/Sodium Citr 15 Ml Udc (Bicitra) PO 04/30/25 08:59 30 ml BID SPARKLE Administration Enoxaparin Sodium 30 mg 03/31/25 09:00 04/02/25 11:49 Enoxaparin Sod Inj 30 Mg/0.3 Ml Syringe SC 04/14/25 08:59 30 mg QDAY SPARKLE Administration Heparin Sodium (Porcine) 3,100 unit 04/01/25 15:13 04/02/25 11:48 Heparin Sod Inj 1000 Unit/Ml Vial 10 Ml INDWELLCAT 04/15/25 15:12 3,100 unit PRN PRN Administration DIALYSIS Azithromycin 500 mg/ Sodium 250 mls @ 250 mls/hr 03/31/25 10:18 04/02/25 11:50 Chloride IV 04/03/25 10:17 250 mls/hr QDAY SPARKLE Administration Ceftriaxone Sodium/Dextrose 1 gm in 50 mls @ 100 mls/hr 03/31/25 21:00 04/01/25 20:23 Rocephin/D5w 1gm Iv Premix IV 04/07/25 20:59 100 mls/hr HS SPARKLE Administration Albumin Human 25 gm in 100 mls @ 100 mls/min 04/01/25 10:03 Albuminar-25 Ivpb IV PRN PRN DIALYSIS Labetalol HCl 10 mg 04/01/25 07:56 04/01/25 20:23 Labetalol Inj 5 Mg/Ml Vial 20 Ml IVP 05/01/25 07:59 10 mg Q4HR PRN Administration SBP > 160mmHg Lisinopril 20 mg 03/30/25 23:50 03/31/25 08:46 Lisinopril 20 Mg Tablet PO 04/29/25 23:49 20 mg QDAY SPARKLE Administration Ondansetron HCl 4 mg 03/30/25 22:49 04/01/25 14:36 Ondansetron Inj 2 Mg/Ml Inj 2 Ml IVP 04/29/25 22:48 4 mg Q6H PRN Administration NAUSEA OR VOMITING Protocol Pharmacy Consult 1 each 03/31/25 07:33 Pharmacy Renal Dose Adjustment 1 Ea XX 04/30/25 07:32 PRN PRN CONSULT Plan Mr. Brian is a 80-year-old male with past medical history as stated above who presented to the ED due to flu-like symptoms with fever chills, nausea, vomiting, diarrhea. #Acute renal failure requiring new hemodialysis #Anion gap metabolic acidosis - resolved -Pt was given IV fluids in the ED, and given 500cc NS bolus on floor -Baseline Creatinine (in 2022) was 1.0, on admission creatinine 6.8 -> 7.1, GFR 7 and BUN 73 -VBG: pH 7.33, pCO2 32, PO 253, O2 saturation 87% -CT abdomen pelvis shows some perinephric stranding no hydronephrosis. However patient denies any flank pain, dysuria or urinary urgency. -Renal ultrasound shows minimal dilation of the renal calyces Plan: -Avoid nephrotoxins and renally dose medications -Temporary Vas-Cath is placed on 04/01/2025 patient will undergo session of dialysis today -Continue Bicitra 30 mL BID -Continue dialysis per Nephrology recommendations -Continue strict intake and output measurements -Nuclear renal ultrasound pending #Acute hypoxic respiratory failure, secondary to #Fluid overload in the setting of acute renal failure, versus #Community-acquired pneumonia -Although patient does not have a white count, patient have flulike symptoms for the last 1 week, which can the patient has risk of superimposed bacterial infection -Chest x-ray was suspicious for early pneumonia left base and right upper lobe as well as congestion -Echo done on 03/31/2025 - EF 65% with dilated IVC and moderate bilateral atrial enlargement Plan: -Supplemental oxygen wean as tolerated -Patient was given Bumex on admission which is discontinued today as patient does not appear to be fluid overloaded anymore -Strict I's and O's -Azithromycin 500mg 03/31-04/03 -Ceftriaxone 1g 03/31- -Blood cultures no growth at 24 hrs #Diarrhea-resolved -Patient states for the past 1 week he has had diarrhea but denies any changes to his diet. Denies any recent antibiotic use -Last diarrheal episode 7 PM on 03/30 Plan: -Stool cultures ordered -C. difficile PCR ordered- canceled due to pt had a formed stool -Contact precaution ordered- discontinued #Proctitis -CT of abdomen/Pelvis shows rectal wall thickening -Consulted GI Dr. Martinez, appreciate recommendations #Elevated troponins -downtrending 0.267 -> .249 , no need to further trend #Primary Hypertension #Hyperlipidemia - Resumed home lisinopril, statin and amlodipine Health Maintenance Disposition: Telemetry DVT Prophylaxis: enoxaparin 30mg Qdaily GI Prophylaxis: not indicated Diet: low sodium diet Lines: Peripheral lines Code status: Full Patient plan of care was discussed with the attending physician, Dr. Godinez. Lorna Dickson, PGY-2 Attending Provider Attestation/Addendum I have discussed and was present for the essential components of the history, physical examination, diagnosis, and treatment plan with the resident. I agree with the patient's care as documented by the resident and amended herein by me. Dakotah Godinez, DO. Patient seen and evaluated this AM. Vital signs stable, patient afebrile overnight. Patient on room air, I/O9 160/700 mL last 24 hours. Labs significant for a BUN of 46 and creatinine 6.5, slight improvement after dialysis yesterday. Will continue dialysis today possible colonoscopy when stable, appreciate specialist recommendations. Patient also on ceftriaxone for possible mild pyelonephritis and pneumonia which she presented with. Will continue monitor closely Karen. Although this document has been carefully reviewed, there may still be some phonetic and other typographical errors. These errors are purely grammatical due to imperfections in the software program and should not be construed in any way to compromise the substance of the patient's medical care during this visit.
--- NOTE | 2025-04-02 14:14 | PD.NEPHPROG ---
Documentation for date of: 04/02/25 Subjective Subjective Interval history: Pt is seen and examined Pt started on dialysis for VIVEK due to ATN Pt is feeling better after second treatment of dialysis Exam Vital Signs Temp Pulse Resp BP Pulse Ox O2 Del Method O2 Flow Rate 98.2 F 59 L 16 147/82 H 96 Nasal Cannula 4 04/02/25 12:00 04/02/25 13:43 04/02/25 13:43 04/02/25 12:00 04/02/25 13:43 04/02/25 12:00 04/02/25 13:43 Narrative Exam General: no acute distress Chest : simon crackles Heart s1, s2, plus 1 edema GI: no tenderness Objective Labs 04/02/25 05:26 04/02/25 05:26 Labs: Laboratory Results - last 24 hr 04/01/25 04/02/25 17:37 05:26 WBC 8.5 8.0 RBC 3.18 L 3.12 L Hgb 9.7 L 9.4 L Hct 28.0 L 27.7 L MCV 88 89 MCH 30.5 30.1 MCHC 34.6 33.9 RDW Std Deviation 41.0 41.8 Plt Count 272 265 Neut % (Auto) 82 H 73 Lymph % (Auto) 7 L 10 [place] % (Auto) 7 11 Eos % (Auto) 2 4 Baso % (Auto) 0 0 Neut # (Auto) 7.0 5.9 Lymph # (Auto) 0.6 L 0.8 L [place] # (Auto) 0.6 0.9 H Eos # (Auto) 0.2 0.3 Baso # (Auto) 0.0 0.0 Immature Gran # (Auto) 0.16 H 0.10 H Absolute Nucleated RBC 0.00 0.00 Immature Gran % 2 H 1 H Nucleated RBC % 0 0 Sodium 141 Potassium 4.0 Chloride 106 Carbon Dioxide 24.0 Anion Gap 11 BUN 46 H Creatinine 6.5 H* D Estim Creat Clear Calc 10.0 L eGFR 8 L* BUN/Creatinine Ratio 7 L Glucose 101 Calculated Osmolality 293 Calcium 9.0 Corrected Calcium 9.3 Phosphorus 6.8 H Magnesium 1.9 Total Bilirubin 0.2 L AST 14 ALT 20 Alkaline Phosphatase 44 L Total Protein 6.5 Albumin 3.6 Globulin 2.9 Albumin/Globulin Ratio 1.2 ABG Interpretation ABG results: 03/31/25 07:22 VBG pH 7.33 VBG pCO2 32 L VBG pO2 53 VBG Base Excess -8 L Assessment & Plan Assessment and plan (1) Acute renal failure (ARF): Status: Acute Additional Assessment & Plan Additional Plan: Covering Dr Watkins VIVEK due to ATN creat worsening so started on dialysis second dialysis today pt is making urine Hold dialysis tomorrow watch creat closely discussed with primary team
--- NOTE | 2025-04-02 16:43 | ESPR_ITS ---
Documentation for date of: 04/02/25 Subjective Subjective Interval history: Patient underwent hemodialysis this morning Hemoglobin hematocrit 9.4 and 27.7 Exam Vital Signs Temp Pulse Resp BP Pulse Ox O2 Del Method O2 Flow Rate 98.2 F 59 L 16 147/82 H 96 Nasal Cannula 4 04/02/25 12:00 04/02/25 13:43 04/02/25 13:43 04/02/25 12:00 04/02/25 13:43 04/02/25 12:00 04/02/25 13:43 Constitutional Comments: Chronically sick Routine Respiratory Exam Comments: Normal to auscultation Routine Abdominal Exam Comments: Soft nontender Objective Labs 04/02/25 05:26 04/02/25 05:26 Labs: Laboratory Results - last 24 hr 04/01/25 04/02/25 17:37 05:26 WBC 8.5 8.0 RBC 3.18 L 3.12 L Hgb 9.7 L 9.4 L Hct 28.0 L 27.7 L MCV 88 89 MCH 30.5 30.1 MCHC 34.6 33.9 RDW Std Deviation 41.0 41.8 Plt Count 272 265 Neut % (Auto) 82 H 73 Lymph % (Auto) 7 L 10 [place] % (Auto) 7 11 Eos % (Auto) 2 4 Baso % (Auto) 0 0 Neut # (Auto) 7.0 5.9 Lymph # (Auto) 0.6 L 0.8 L [place] # (Auto) 0.6 0.9 H Eos # (Auto) 0.2 0.3 Baso # (Auto) 0.0 0.0 Immature Gran # (Auto) 0.16 H 0.10 H Absolute Nucleated RBC 0.00 0.00 Immature Gran % 2 H 1 H Nucleated RBC % 0 0 Sodium 141 Potassium 4.0 Chloride 106 Carbon Dioxide 24.0 Anion Gap 11 BUN 46 H Creatinine 6.5 H* D Estim Creat Clear Calc 10.0 L eGFR 8 L* BUN/Creatinine Ratio 7 L Glucose 101 Calculated Osmolality 293 Calcium 9.0 Corrected Calcium 9.3 Phosphorus 6.8 H Magnesium 1.9 Total Bilirubin 0.2 L AST 14 ALT 20 Alkaline Phosphatase 44 L Total Protein 6.5 Albumin 3.6 Globulin 2.9 Albumin/Globulin Ratio 1.2 Impressions Impression: Rectal wall thickening on CT scan imaging holding of colonoscopy at the moment till other metabolic issues are resolved Renal failure on hemodialysis We will continue to follow ABG Interpretation ABG results: 03/31/25 07:22 VBG pH 7.33 VBG pCO2 32 L VBG pO2 53 VBG Base Excess -8 L Assessment & Plan A&P Narrative # Abnormal CT scan of the abdomen pelvis showing thickening of the rectal wall differential diagnoses include Proctitis due to underlying inflammatory bowel disease Unlikely infiltrating malignancy Possibly under distention of the rectum Suggestions Patient has multiple medical issues going on Let him improve Will consider fiberoptic colonoscopy prior to discharge Other medical problems include VIVEK pulmonary edema resolving Congestive heart failure improving Acute hypoxic respiratory failure improving Pneumonia Elevated troponin Thank you very much for the opportunity to participate in the care of this patient Time Spent With Patient Time: Total time spent is greater than 50% in coordination of care (as documented) at patient's floor/unit and/or counseling patient:
[2025-04-02 19:43] LABS: Hepatitis B Surface Ab NonReact(Not Immune) (Immune)
[2025-04-02 19:55] LABS: Hepatitis B Surface Antigen Non Reactive (Non React)
[2025-04-02 20:19] LABS: Hepatitis A Antibody IgM Non Reactive (Non React); Hepatitis B Core Antibody IgM Non Reactive (Non React); Hepatitis C Antibody Non Reactive (Non React)
[2025-04-02] MEDS: ATORVASTATIN CALCIUM 20 MG TABLET 40 MG PO (20:22)
[2025-04-02] MEDS: cefTRIAXone/D5w 1gm IV premix 1 GM/50 ML BAG IV (20:22)
[2025-04-03] VITALS (23 sets, daily range): BP systolic 139–155; BP diastolic 68–87; PULSE 55–92; RESP 12–21; TEMP 35.7–37.1; O2SAT 90–97; BMI 32.3
[2025-04-03] MEDS: ALBUTEROL/IPRATROPIUM (Duoneb) RT SOL 3 ML NEBU INH ×4 (01:45→18:27)
--- NOTE | 2025-04-03 02:42 | EKG_ITS ---
[facility] (Formerly [facility])[3] Test Date: 2025-04-03 Pat Name: FARIHA LOUIS [facility] Pantograph Ii Engraver: FAITH : 1945 Requested By: Kei Farmer Order Number: [id number] Reading MD: Kei Farmer Measurements Intervals [place] Rate: 88 P: 24 LA: 142 QRS: 35 QRSD: 145 T: -3 QT: 378 QTc: 459 Interpretive Statements SINUS RHYTHM RIGHT BUNDLE BRANCH BLOCK Compared to ECG 03/30/2025 13:36:01 Right bundle-branch block now present /store/S0/[id number].pdf
--- NOTE | 2025-04-03 02:50 | PC.NURSE ---
Pt hr sustained 160's, pt denied any chest pain, headache, SOB, tingling or numbness. MD made aware. EKG and labs ordered
[2025-04-03 03:25] LABS: Alanine Aminotransferase 26 U/L (10-49); Albumin, Serum 3.6 gm/dL (3.4-4.8); Albumin/Globulin Ratio 1.3 (1.2-2.2); Alkaline Phosphatase 46 U/L (46-116); Anion Gap 9 (7-16); Aspartate Amino Transferase 25 U/L (0-34); BUN/Creatinine Ratio 6 Ratio (12-20); Bilirubin,Total 0.2 mg/dL (0.3-1.2); Blood Urea Nitrogen 34 mg/dL (9-23); Calcium 8.9 mg/dL (8.3-10.6); Calcium (Corrected) 9.2 mg/dL (8.5-10.1); Carbon Dioxide 26.9 mMol/L (20.0-31.0); Chloride 103 mMol/L (98-107); Creatinine (Component) 5.8 mg/dL (0.6-1.3); Estimated Creatinine Clearance 11.2 mL/min (>60); Globulin 2.7 gm/dL (2.3-3.5); Glucose 110 mg/dL (74-106); Magnesium 1.8 mg/dL (1.6-2.6); Osmolality,Calculated 286 (275-295); Potassium 4.0 mMol/L (3.4-5.1); Sodium 139 mMol/L (136-145); Total Protein 6.3 gm/dL (5.7-8.2); eGFR 9 See Note
[2025-04-03] MEDS: Magnesium Sulfate 4 GM Ivpb 4 GM/50 ML BAG IV (05:21)
[2025-04-03 06:26] LABS: Basophils # (Auto) 0.0 Thou/mm3 (0.0-0.2); Basophils % (Auto) 0 % (0-2.5); Eosinophils # (Auto) 0.3 Thou/mm3 (0.0-0.5); Eosinophils % (Auto) 3 % (0-10); Hematocrit 27.7 % (41.0-53.0); Hemoglobin 9.3 g/dL (13.5-16.0); Immature Granulocytes Auto 0.16 Thou/mm3 (0.00-0.00); Lymphocytes # (Auto) 0.9 Thou/mm3 (1.0-4.8); Lymphocytes % (Auto) 9 % (10-50); Mean Corpuscular HGB Conc 33.6 g/dl (31.0-37.0); Mean Corpuscular Hemoglobin 30.6 pg (25.0-35.0); Mean Corpuscular Volume 91 fL (80-100); Monocytes # (Auto) 1.0 Thou/mm3 (0.0-0.8); Monocytes % (Auto) 10 % (0-12); Neutrophils # (Auto) 7.3 Thou/mm3 (1.8-7.7); Neutrophils % (Auto) 76 % (37-80); Nucleated Red Blood Cell # 0.00 Thou/mm3 (0.00-0.00); Nucleated Red Blood Cell % 0 /100 WBC (0); Platelet Count 244 Thou/mm3 (140-440); RDW Standard Deviation 41.9 fL (35.1-43.9); Red Blood Count 3.04 Miln/mm3 (4.50-5.90); White Blood Count 9.6 Thou/mm3 (3.8-10.6)
[2025-04-03 06:53] LABS: Albumin, Serum 3.6 gm/dL (3.4-4.8); Anion Gap 10 (7-16); BUN/Creatinine Ratio 6 Ratio (12-20); Blood Urea Nitrogen 37 mg/dL (9-23); Calcium 8.9 mg/dL (8.3-10.6); Calcium (Corrected) 9.2 mg/dL (8.5-10.1); Carbon Dioxide 28.1 mMol/L (20.0-31.0); Chloride 102 mMol/L (98-107); Creatinine (Component) 6.0 mg/dL (0.6-1.3); Estimated Creatinine Clearance 10.9 mL/min (>60); Glucose 103 mg/dL (74-106); Magnesium 2.1 mg/dL (1.6-2.6); Osmolality,Calculated 288 (275-295); Phosphorous 6.2 mg/dL (2.4-5.1); Potassium 4.0 mMol/L (3.4-5.1); Sodium 140 mMol/L (136-145); eGFR 9 See Note
[2025-04-03] MEDS: HEPARIN SOD INJ 1000 UNIT/ML VIAL 10 ML 3100 UNIT INDWELLCAT (10:34)
[2025-04-03] MEDS: ENOXAPARIN SOD INJ 30 MG/0.3 ML SYRINGE SC (11:03)
[2025-04-03] MEDS: ACETAMINOPHEN 325 MG TABLET 650 MG PO (11:03)
[2025-04-03] MEDS: CITRIC ACID/SODIUM CITR 15 ML UDC (BICITRA) 30 ML PO ×2 (11:03→20:48)
--- NOTE | 2025-04-03 12:08 | PD.IMPROG ---
Documentation for date of: 04/03/25 Subjective Subjective Interval history: Patient doing better after dialysis Discussed in detail with the patient We can hold off doing a colonoscopy till all the other metabolic disorders are corrected Exam Vital Signs Temp Pulse Resp BP Pulse Ox O2 Del Method O2 Flow Rate 96.2 F L 80 18 155/75 H 96 Nasal Cannula 4 04/03/25 10:42 04/03/25 11:02 04/03/25 10:42 04/03/25 11:02 04/03/25 10:42 04/03/25 08:00 04/03/25 10:42 Objective Labs 04/03/25 05:50 04/03/25 05:50 Labs: Laboratory Results - last 24 hr 04/01/25 04/03/25 04/03/25 05:18 02:57 05:50 WBC 9.6 RBC 3.04 L Hgb 9.3 L Hct 27.7 L MCV 91 MCH 30.6 MCHC 33.6 RDW Std Deviation 41.9 Plt Count 244 Neut % (Auto) 76 Lymph % (Auto) 9 L [place] % (Auto) 10 Eos % (Auto) 3 Baso % (Auto) 0 Neut # (Auto) 7.3 Lymph # (Auto) 0.9 L [place] # (Auto) 1.0 H Eos # (Auto) 0.3 Baso # (Auto) 0.0 Immature Gran # (Auto) 0.16 H Absolute Nucleated RBC 0.00 Immature Gran % 2 H Nucleated RBC % 0 Sodium 139 140 Potassium 4.0 4.0 Chloride 103 102 Carbon Dioxide 26.9 28.1 Anion Gap 9 10 BUN 34 H 37 H Creatinine 5.8 H* D 6.0 H* Estim Creat Clear Calc 11.2 L 10.9 L eGFR 9 L* 9 L* BUN/Creatinine Ratio 6 L 6 L Glucose 110 H 103 Calculated Osmolality 286 288 Calcium 8.9 8.9 Corrected Calcium 9.2 9.2 Phosphorus 6.2 H Magnesium 1.8 2.1 Total Bilirubin 0.2 L AST 25 ALT 26 Alkaline Phosphatase 46 Total Protein 6.3 Albumin 3.6 3.6 Globulin 2.7 Albumin/Globulin Ratio 1.3 Hepatitis A IgM Ab Non Reactive Hep Bs Antigen Non Reactive Hep Bs Antibody NonReact(Not Immune) L Hep B Core IgM Ab Non Reactive Hepatitis C Antibody Non Reactive Impressions Impression: Abnormal CT scan of the abdomen pelvis showing thickening of the rectal wall Renal failure on hemodialysis Continue to monitor ABG Interpretation ABG results: 03/31/25 07:22 VBG pH 7.33 VBG pCO2 32 L VBG pO2 53 VBG Base Excess -8 L Assessment & Plan A&P Narrative # Abnormal CT scan of the abdomen pelvis showing thickening of the rectal wall differential diagnoses include Proctitis due to underlying inflammatory bowel disease Unlikely infiltrating malignancy Possibly under distention of the rectum Suggestions Patient has multiple medical issues going on Let him improve Will consider fiberoptic colonoscopy prior to discharge Other medical problems include VIVEK pulmonary edema resolving Congestive heart failure improving Acute hypoxic respiratory failure improving Pneumonia Elevated troponin Thank you very much for the opportunity to participate in the care of this patient Time Spent With Patient Time: Total time spent is greater than 50% in coordination of care (as documented) at patient's floor/unit and/or counseling patient:
--- NOTE | 2025-04-03 14:45 | PD.RESPRO ---
Documentation for date of: 04/03/25 Subjective Subjective Interval history: Overnight team reported patient went into A-fib for less than a minute with a heart rate of 175 however when EKG was obtained EKG showed normal sinus rhythm and patient was converted back to normal sinus rhythm without any interventions. Patient is seen and examined at bedside during dialysis. Patient currently saturating on 3 L oxygen. Input/output is 1927/950 mL. Denies any shortness of breath chest pain or palpitation. Patient continues to endorse feeling great. Vitals are stable labs are significant for BUN 37, creatinine 6.0, GFR 9. This is patient's third dialysis session. Per nephrology if patient shows no improvement in the kidney function then will need to order tunneled dialysis catheter as patient may need dialysis session for longer period of time. Exam Vital Signs Temp Pulse Resp BP Pulse Ox O2 Del Method O2 Flow Rate 98.1 F 70 12 149/74 H 97 Nasal Cannula 4 04/03/25 12:00 04/03/25 12:29 04/03/25 12:29 04/03/25 12:00 04/03/25 12:29 04/03/25 12:04/03/25 12:29 Narrative Exam GENERAL: A&Ox3 and conversational. Awake, Not in acute distress NEURO: no focal neurological deficits HEENT: Atraumatic, Normocephalic. mucous membranes moist. Eyes open, symmetrical, & clear HEART: Normal Heart Sounds LUNGS: Clear to auscultation with no wheezing or crackles. ABDOMEN: soft, non-distended, non-tender, bowel sounds heard, no guarding or rebound tenderness SKIN: No Rash or ecchymoses EXTREMITIES: No edema, tenderness, able to move all 4 extremities, pedal pulses palpated Objective Labs 04/03/25 05:50 04/03/25 05:50 Labs: Laboratory Results - last 24 hr 04/01/25 04/03/25 04/03/25 05:18 02:57 05:50 WBC 9.6 RBC 3.04 L Hgb 9.3 L Hct 27.7 L MCV 91 MCH 30.6 MCHC 33.6 RDW Std Deviation 41.9 Plt Count 244 Neut % (Auto) 76 Lymph % (Auto) 9 L [place] % (Auto) 10 Eos % (Auto) 3 Baso % (Auto) 0 Neut # (Auto) 7.3 Lymph # (Auto) 0.9 L [place] # (Auto) 1.0 H Eos # (Auto) 0.3 Baso # (Auto) 0.0 Immature Gran # (Auto) 0.16 H Absolute Nucleated RBC 0.00 Immature Gran % 2 H Nucleated RBC % 0 Sodium 139 140 Potassium 4.0 4.0 Chloride 103 102 Carbon Dioxide 26.9 28.1 Anion Gap 9 10 BUN 34 H 37 H Creatinine 5.8 H* D 6.0 H* Estim Creat Clear Calc 11.2 L 10.9 L eGFR 9 L* 9 L* BUN/Creatinine Ratio 6 L 6 L Glucose 110 H 103 Calculated Osmolality 286 288 Calcium 8.9 8.9 Corrected Calcium 9.2 9.2 Phosphorus 6.2 H Magnesium 1.8 2.1 Total Bilirubin 0.2 L AST 25 ALT 26 Alkaline Phosphatase 46 Total Protein 6.3 Albumin 3.6 3.6 Globulin 2.7 Albumin/Globulin Ratio 1.3 Hepatitis A IgM Ab Non Reactive Hep Bs Antigen Non Reactive Hep Bs Antibody NonReact(Not Immune) L Hep B Core IgM Ab Non Reactive Hepatitis C Antibody Non Reactive ABG Interpretation ABG results: 03/31/25 07:22 VBG pH 7.33 VBG pCO2 32 L VBG pO2 53 VBG Base Excess -8 L Quality Measures Quality Measures none Advance care planning discussed with:: patient Assessment & Plan Assessment Current Active Medications: Generic Name Dose Route Start Last Admin Trade Name Freq PRN Reason Stop Dose Admin Acetaminophen 650 mg 03/30/25 22:49 04/03/25 11:03 Acetaminophen 325 Mg Tablet PO 04/29/25 22:48 650 mg Q6H PRN Administration Fever >99.5 Acetaminophen 1,000 mg 03/31/25 01:43 04/02/25 11:49 Acetaminophen 500 Mg Tablet PO 04/30/25 01:40 1,000 mg Q6H PRN Administration PAIN SCALE 1-3 (mild Hydrocodone Bitart/Acetaminophen 1 tab 03/31/25 17:17 04/01/25 08:49 Hydrocodone/Apap 5/325 Tablet PO 04/05/25 17:16 1 tab Q6HR PRN Administration moderate pain 4-6 Albuterol/Ipratropium 3 ml 03/30/25 22:49 Albuterol/Ipratropium (Duoneb) Rt Svetlana 3 Ml Nebu INH 04/29/25 22:48 Q2HR PRN SHORTNESS OF BREATH OR WHEEZE Albuterol/Ipratropium 3 ml 03/31/25 01:00 04/03/25 12:27 Albuterol/Ipratropium (Duoneb) Rt Svetlana 3 Ml Nebu INH 04/30/25 00:59 3 ml Q6HRRT SPARKLE Administration Amlodipine Besylate 10 mg 03/30/25 23:50 04/03/25 11:02 Amlodipine Besylate 5 Mg Tablet PO 04/29/25 23:49 10 mg QDAY SPARKLE Administration Atorvastatin Calcium 40 mg 03/31/25 21:00 04/02/25 20:22 Atorvastatin Calcium 20 Mg Tablet PO 04/30/25 20:59 40 mg HS SPARKLE Administration Citric Acid/Sodium Citrate 30 ml 03/31/25 09:00 04/03/25 11:03 Citric Acid/Sodium Citr 15 Ml Udc (Bicitra) PO 04/30/25 08:59 30 ml BID SPARKLE Administration Enoxaparin Sodium 30 mg 03/31/25 09:00 04/03/25 11:03 Enoxaparin Sod Inj 30 Mg/0.3 Ml Syringe SC 04/14/25 08:59 30 mg QDAY SPARKLE Administration Heparin Sodium (Porcine) 3,100 unit 04/01/25 15:13 04/03/25 10:34 Heparin Sod Inj 1000 Unit/Ml Vial 10 Ml INDWELLCAT 04/15/25 15:12 3,100 unit PRN PRN Administration DIALYSIS Ceftriaxone Sodium/Dextrose 1 gm in 50 mls @ 100 mls/hr 03/31/25 21:00 04/02/25 20:22 Rocephin/D5w 1gm Iv Premix IV 04/07/25 20:59 100 mls/hr HS SPARKLE Administration Albumin Human 25 gm in 100 mls @ 100 mls/min 04/01/25 10:03 Albuminar-25 Ivpb IV PRN PRN DIALYSIS Labetalol HCl 10 mg 04/01/25 07:56 04/01/25 20:23 Labetalol Inj 5 Mg/Ml Vial 20 Ml IVP 05/01/25 07:59 10 mg Q4HR PRN Administration SBP > 160mmHg Lisinopril 20 mg 03/30/25 23:50 03/31/25 08:46 Lisinopril 20 Mg Tablet PO 04/29/25 23:49 20 mg QDAY SPARKLE Administration Ondansetron HCl 4 mg 03/30/25 22:49 04/01/25 14:36 Ondansetron Inj 2 Mg/Ml Inj 2 Ml IVP 04/29/25 22:48 4 mg Q6H PRN Administration NAUSEA OR VOMITING Protocol Pharmacy Consult 1 each 03/31/25 07:33 Pharmacy Renal Dose Adjustment 1 Ea XX 04/30/25 07:32 PRN PRN CONSULT Plan Mr. Brian is a 80-year-old male with past medical history as stated above who presented to the ED due to flu-like symptoms with fever chills, nausea, vomiting, diarrhea. #ATN requiring new onset hemodialysis #Anion gap metabolic acidosis - resolved -Pt was given IV fluids in the ED, and given 500cc NS bolus on floor -Baseline Creatinine (in 2022) was 1.0, on admission creatinine 6.8 -> 7.1, GFR 7 and BUN 73 -VBG: pH 7.33, pCO2 32, PO 253, O2 saturation 87% -CT abdomen pelvis shows some perinephric stranding no hydronephrosis. However patient denies any flank pain, dysuria or urinary urgency. -Renal ultrasound shows minimal dilation of the renal calyces Plan: -Avoid nephrotoxins and renally dose medications -Temporary Vas-Cath is placed on 04/01/2025 patient has undergone dialysis 04/01, 04/02 and 04/03 -Continue Bicitra 30 mL BID -Continue dialysis per Nephrology recommendations -Continue strict intake and output measurements -Nuclear renal ultrasound pending #Acute hypoxic respiratory failure, secondary to #Fluid overload in the setting of acute renal failure, versus #Community-acquired pneumonia -Although patient does not have a white count, patient have flulike symptoms for the last 1 week, which can the patient has risk of superimposed bacterial infection -Chest x-ray was suspicious for early pneumonia left base and right upper lobe as well as congestion -Echo done on 03/31/2025 - EF 65% with dilated IVC and moderate bilateral atrial enlargement Plan: -Supplemental oxygen wean as tolerated -Patient was given Bumex on admission which is discontinued today as patient does not appear to be fluid overloaded anymore -Strict I's and O's -Azithromycin 500mg 03/31-04/03 -Ceftriaxone 1g 03/31- -Blood cultures no growth at 24 hrs #A-fib with RVR- self resolved On 04/03 : Overnight team reported patient went into A-fib for less than a minute with a heart rate of 175 however when EKG was obtained EKG showed normal sinus rhythm and patient was converted back to normal sinus rhythm without any interventions. [id number] score 3, HAS-BLED 3 Plan: Will continue to monitor telemetry Keep magnesium above 2 and potassium above 4 #Diarrhea-resolved -Patient states for the past 1 week he has had diarrhea but denies any changes to his diet. Denies any recent antibiotic use -Last diarrheal episode 7 PM on 03/30 Plan: -Stool cultures ordered -C. difficile PCR ordered- canceled due to pt had a formed stool -Contact precaution ordered- discontinued #Proctitis -CT of abdomen/Pelvis shows rectal wall thickening -Consulted GI Dr. Martinez, appreciate recommendations #Elevated troponins -downtrending 0.267 -> .249 , no need to further trend #Primary Hypertension #Hyperlipidemia - Resumed home lisinopril, statin and amlodipine Health Maintenance Disposition: Telemetry DVT Prophylaxis: enoxaparin 30mg Qdaily GI Prophylaxis: not indicated Diet: low sodium diet Lines: Peripheral lines Code status: Full Assessment and plan discussed with my attending physician Dr. Herbert Mcbride (PGY-1)- Internal medicine resident Attending Provider Attestation/Addendum I have discussed and was present for the essential components of the history, physical examination, diagnosis, and treatment plan with the resident. I agree with the patient's care as documented by the resident and amended herein by me. Dakotah Godinez, DO. Patient seen and evaluated this AM. No acute events overnight, I/show 1927/950 mL. Patient presently on 4 L nasal cannula, SpO2 97%. BUN 37 today, creatinine downtrend to 6. Patient is undergoing hemodialysis today, will reevaluate tomorrow however there is not much improvement in the patient's renal function, we will need to establish a hemodialysis chair and have a tunneled dialysis catheter placed. Nephrology consulted, appreciate recommendations. Patient may need colonoscopy prior to discharge per gastroenterology however can likely have this done as an outpatient. Will continue to monitor closely. Patient presently on ceftriaxone will likely complete 2 more days. All cultures have been negative and the patient has remained afebrile. Although this document has been carefully reviewed, there may still be some phonetic and other typographical errors. These errors are purely grammatical due to imperfections in the software program and should not be construed in any way to compromise the substance of the patient's medical care during this visit.
[2025-04-03] MEDS: cefTRIAXone/D5w 1gm IV premix 1 GM/50 ML BAG IV (20:48)
[2025-04-03] MEDS: ATORVASTATIN CALCIUM 20 MG TABLET 40 MG PO (20:49)
[2025-04-04] VITALS (12 sets, daily range): BP systolic 147–170; BP diastolic 66–105; PULSE 67–92; RESP 16–20; TEMP 36.4–37; O2SAT 89–97; BMI 32.3
[2025-04-04] MEDS: ALBUTEROL/IPRATROPIUM (Duoneb) RT SOL 3 ML NEBU INH ×3 (00:21→18:33)
[2025-04-04 06:21] LABS: Basophils # (Auto) 0.0 Thou/mm3 (0.0-0.2); Basophils % (Auto) 0 % (0-2.5); Eosinophils # (Auto) 0.3 Thou/mm3 (0.0-0.5); Eosinophils % (Auto) 3 % (0-10); Hematocrit 26.4 % (41.0-53.0); Hemoglobin 8.9 g/dL (13.5-16.0); Immature Granulocytes Auto 0.13 Thou/mm3 (0.00-0.00); Lymphocytes # (Auto) 0.8 Thou/mm3 (1.0-4.8); Lymphocytes % (Auto) 8 % (10-50); Mean Corpuscular HGB Conc 33.7 g/dl (31.0-37.0); Mean Corpuscular Hemoglobin 30.1 pg (25.0-35.0); Mean Corpuscular Volume 89 fL (80-100); Monocytes # (Auto) 1.0 Thou/mm3 (0.0-0.8); Monocytes % (Auto) 10 % (0-12); Neutrophils # (Auto) 7.7 Thou/mm3 (1.8-7.7); Neutrophils % (Auto) 77 % (37-80); Nucleated Red Blood Cell # 0.00 Thou/mm3 (0.00-0.00); Nucleated Red Blood Cell % 0 /100 WBC (0); Platelet Count 246 Thou/mm3 (140-440); RDW Standard Deviation 41.1 fL (35.1-43.9); Red Blood Count 2.96 Miln/mm3 (4.50-5.90); White Blood Count 10.0 Thou/mm3 (3.8-10.6)
[2025-04-04 06:49] LABS: Albumin, Serum 3.6 gm/dL (3.4-4.8); Anion Gap 9 (7-16); BUN/Creatinine Ratio 6 Ratio (12-20); Blood Urea Nitrogen 36 mg/dL (9-23); Calcium 8.9 mg/dL (8.3-10.6); Calcium (Corrected) 9.2 mg/dL (8.5-10.1); Carbon Dioxide 27.7 mMol/L (20.0-31.0); Chloride 102 mMol/L (98-107); Creatinine (Component) 5.8 mg/dL (0.6-1.3); Estimated Creatinine Clearance 11.2 mL/min (>60); Glucose 112 mg/dL (74-106); Osmolality,Calculated 286 (275-295); Phosphorous 5.5 mg/dL (2.4-5.1); Potassium 4.1 mMol/L (3.4-5.1); Sodium 139 mMol/L (136-145); eGFR 9 See Note
--- NOTE | 2025-04-04 07:20 | PC.SS ---
Rounding Note: Patient to participate with dialysis today. Plan is to receive nuclear scan of kidneys. Dr. Quan consulting. Outpatient dialysis need pending. TB test and Hep panel order requested.
[2025-04-04] MEDS: HYDROcodone/APAP 5/325 TABLET 1 TAB PO ×2 (07:59→20:35)
[2025-04-04] MEDS: CITRIC ACID/SODIUM CITR 15 ML UDC (BICITRA) 30 ML PO ×2 (08:01→20:31)
[2025-04-04] MEDS: ENOXAPARIN SOD INJ 30 MG/0.3 ML SYRINGE SC (08:01)
--- NOTE | 2025-04-04 08:55 | PC.NURSE ---
Recheck b/p from this morning. Patient feels better. Headache is gone b/p is 146/68 Hr 83. will continue to monitor.
--- NOTE | 2025-04-04 11:37 | PD.RESPRO ---
Documentation for date of: 04/04/25 Subjective Subjective Interval history: Overnight events: No acute events overnight. Patient was seen and examined at bedside. AM vitals and labs reviewed. The patient has no new complaints at this time and is eager to continue with dialysis treatments. AM labs show slight Cr improvement of 5.8, down from 6.0 yesterday. While Cr is significantly improved compared to the start of hemodialysis sessions (last session 04/03/25), the patients Cr still remains significantly high compared to baseline of 1.0. Additionally, eGFR continues to remain significantly low at 9. Nuclear renal US is still pending. Input/output over 24hrs is 1120/1250, output is all through urine. No complaints of chest pain or shortness of breath at this time. Review of systems otherwise negative except for what is mentioned above. Exam Vital Signs Temp Pulse Resp BP Pulse Ox O2 Del Method O2 Flow Rate 98.4 F 88 20 168/85 H 91 L Nasal Cannula 4 04/04/25 08:00 04/04/25 08:00 04/04/25 08:00 04/04/25 08:00 04/04/25 08:00 04/04/25 08:00 04/04/25 08:00 Narrative Exam Physical Exam: General: Alert, no acute distress. Skin: Warm, dry, intact, no obvious rash. Head: Normocephalic, atraumatic. Eye: Normal conjunctiva, PERRL. Throat: Oral mucosa moist. No obvious lesions in oropharynx. Cardiovascular: Regular rate and rhythm, no murmur, +S1/S2. Respiratory: Lungs are clear to auscultation, respirations unlabored, no crackles, no wheezing. Gastrointestinal: Soft, nontender, non-distended. No guarding or rebound tenderness. Extremities: No edema, no cyanosis, no clubbing. 2+ radial pulse bilaterally, 1+ posterior tibial pulse bilaterally. Neuro: No focal deficits observed. Conversant, moving all extremities. No overt cerebellar signs/incoordination. Psychiatric: Cooperative, appropriate affect. Objective Labs 04/06/25 06:20 04/06/25 06:20 Labs: Laboratory Results - last 24 hr 04/04/25 05:43 WBC 10.0 RBC 2.96 L Hgb 8.9 L Hct 26.4 L MCV 89 MCH 30.1 MCHC 33.7 RDW Std Deviation 41.1 Plt Count 246 Neut % (Auto) 77 Lymph % (Auto) 8 L [place] % (Auto) 10 Eos % (Auto) 3 Baso % (Auto) 0 Neut # (Auto) 7.7 Lymph # (Auto) 0.8 L [place] # (Auto) 1.0 H Eos # (Auto) 0.3 Baso # (Auto) 0.0 Immature Gran # (Auto) 0.13 H Absolute Nucleated RBC 0.00 Immature Gran % 1 H Nucleated RBC % 0 Sodium 139 Potassium 4.1 Chloride 102 Carbon Dioxide 27.7 Anion Gap 9 BUN 36 H Creatinine 5.8 H* Estim Creat Clear Calc 11.2 L eGFR 9 L* BUN/Creatinine Ratio 6 L Glucose 112 H Calculated Osmolality 286 Calcium 8.9 Corrected Calcium 9.2 Phosphorus 5.5 H Albumin 3.6 ABG Interpretation ABG results: 03/31/25 07:22 VBG pH 7.33 VBG pCO2 32 L VBG pO2 53 VBG Base Excess -8 L Quality Measures Quality Measures none Advance care planning discussed with:: patient Assessment & Plan Assessment Current Active Medications: Generic Name Dose Route Start Last Admin Trade Name Freq PRN Reason Stop Dose Admin Acetaminophen 650 mg 03/30/25 22:49 04/03/25 11:03 Acetaminophen 325 Mg Tablet PO 04/29/25 22:48 650 mg Q6H PRN Administration Fever >99.5 Acetaminophen 1,000 mg 03/31/25 01:43 04/02/25 11:49 Acetaminophen 500 Mg Tablet PO 04/30/25 01:40 1,000 mg Q6H PRN Administration PAIN SCALE 1-3 (mild Hydrocodone Bitart/Acetaminophen 1 tab 03/31/25 17:17 04/04/25 07:59 Hydrocodone/Apap 5/325 Tablet PO 04/05/25 17:16 1 tab Q6HR PRN Administration moderate pain 4-6 Albuterol/Ipratropium 3 ml 03/30/25 22:49 Albuterol/Ipratropium (Duoneb) Rt Svetlana 3 Ml Nebu INH 04/29/25 22:48 Q2HR PRN SHORTNESS OF BREATH OR WHEEZE Albuterol/Ipratropium 3 ml 03/31/25 01:00 04/04/25 06:22 Albuterol/Ipratropium (Duoneb) Rt Svetlana 3 Ml Nebu INH 04/30/25 00:59 3 ml Q6HRRT SPARKLE Administration Amlodipine Besylate 10 mg 03/30/25 23:50 04/04/25 08:00 Amlodipine Besylate 5 Mg Tablet PO 04/29/25 23:49 10 mg QDAY SPARKLE Administration Atorvastatin Calcium 40 mg 03/31/25 21:00 04/03/25 20:49 Atorvastatin Calcium 20 Mg Tablet PO 04/30/25 20:59 40 mg HS SPARKLE Administration Citric Acid/Sodium Citrate 30 ml 03/31/25 09:00 04/04/25 08:01 Citric Acid/Sodium Citr 15 Ml Udc (Bicitra) PO 04/30/25 08:59 30 ml BID SPARKLE Administration Enoxaparin Sodium 30 mg 03/31/25 09:00 04/04/25 08:01 Enoxaparin Sod Inj 30 Mg/0.3 Ml Syringe SC 04/14/25 08:59 30 mg QDAY SPARKLE Administration Heparin Sodium (Porcine) 3,100 unit 04/01/25 15:13 04/03/25 10:34 Heparin Sod Inj 1000 Unit/Ml Vial 10 Ml INDWELLCAT 04/15/25 15:12 3,100 unit PRN PRN Administration DIALYSIS Ceftriaxone Sodium/Dextrose 1 gm in 50 mls @ 100 mls/hr 03/31/25 21:00 04/03/25 20:48 Rocephin/D5w 1gm Iv Premix IV 04/07/25 20:59 100 mls/hr HS SPARKLE Administration Albumin Human 25 gm in 100 mls @ 100 mls/min 04/01/25 10:03 Albuminar-25 Ivpb IV PRN PRN DIALYSIS Labetalol HCl 10 mg 04/01/25 07:56 04/01/25 20:23 Labetalol Inj 5 Mg/Ml Vial 20 Ml IVP 05/01/25 07:59 10 mg Q4HR PRN Administration SBP > 160mmHg Lisinopril 20 mg 03/30/25 23:50 03/31/25 08:46 Lisinopril 20 Mg Tablet PO 04/29/25 23:49 20 mg QDAY SPARKLE Administration Ondansetron HCl 4 mg 03/30/25 22:49 04/01/25 14:36 Ondansetron Inj 2 Mg/Ml Inj 2 Ml IVP 04/29/25 22:48 4 mg Q6H PRN Administration NAUSEA OR VOMITING Protocol Pharmacy Consult 1 each 03/31/25 07:33 Pharmacy Renal Dose Adjustment 1 Ea XX 04/30/25 07:32 PRN PRN CONSULT Plan Mr. Brian is a 80 year old gentleman with a past medical history of HTN and HLD who presented with flu-like symptoms. Nephrology was consulted due to initial labs suggesting an acute kidney injury due to highly elevated Cr and significantly decreased eGFR. #Acute renal failure 2/2 acute tubular necrosis requiring new onset hemodialysis -Pending renal nuclear US for further identification of renal injury -Tunneled dialysis catheter still in consideration due to no significant improvement after 3 sessions of hemodialysis as this will allow for longer dialysis time, but we will hold off on this for now and continue to monitor Cr -Nephrology will continue to monitor Rest of conditions to continue current management per primary team: - Acute hypoxic respiratory failure secondary to fluid overload vs CAP - A-fib w/ RVR - Proctitis - HTN - HLD Patient was discussed with the Nephrology attending, Dr. Quan. Thank you for allowing us to participate in the care of this patient. Ismael Yu, PGY-1 Attending Provider Attestation/Addendum Pt is seen and examined. labs reviewed. notes reviewed. agree with assessment and plan and findings of resident. Marc Quan MD
--- NOTE | 2025-04-04 12:19 | PC.SS ---
Dialysis referral submitted to [facility] location. Dr. Quan is the digital account manager. Pending response.
--- NOTE | 2025-04-04 12:21 | PC.SS ---
Update: Awaiting nephrology recommendations to determine if patient will need outpatient dialysis.
--- NOTE | 2025-04-04 14:48 | PD.RESPRO ---
Documentation for date of: 04/04/25 Exam Vital Signs Temp Pulse Resp BP Pulse Ox O2 Del Method O2 Flow Rate 97.6 F 78 18 147/66 H 92 L Nasal Cannula 4 04/04/25 12:00 04/04/25 12:00 04/04/25 12:00 04/04/25 12:00 04/04/25 12:00 04/04/25 12:00 04/04/25 12:00 Objective Labs 04/04/25 05:43 04/04/25 05:43 Labs: Laboratory Results - last 24 hr 04/04/25 05:43 WBC 10.0 RBC 2.96 L Hgb 8.9 L Hct 26.4 L MCV 89 MCH 30.1 MCHC 33.7 RDW Std Deviation 41.1 Plt Count 246 Neut % (Auto) 77 Lymph % (Auto) 8 L [place] % (Auto) 10 Eos % (Auto) 3 Baso % (Auto) 0 Neut # (Auto) 7.7 Lymph # (Auto) 0.8 L [place] # (Auto) 1.0 H Eos # (Auto) 0.3 Baso # (Auto) 0.0 Immature Gran # (Auto) 0.13 H Absolute Nucleated RBC 0.00 Immature Gran % 1 H Nucleated RBC % 0 Sodium 139 Potassium 4.1 Chloride 102 Carbon Dioxide 27.7 Anion Gap 9 BUN 36 H Creatinine 5.8 H* Estim Creat Clear Calc 11.2 L eGFR 9 L* BUN/Creatinine Ratio 6 L Glucose 112 H Calculated Osmolality 286 Calcium 8.9 Corrected Calcium 9.2 Phosphorus 5.5 H Albumin 3.6 ABG Interpretation ABG results: 03/31/25 07:22 VBG pH 7.33 VBG pCO2 32 L VBG pO2 53 VBG Base Excess -8 L Quality Measures Quality Measures none Assessment & Plan Assessment Current Active Medications: Generic Name Dose Route Start Last Admin Trade Name Freq PRN Reason Stop Dose Admin Acetaminophen 650 mg 03/30/25 22:49 04/03/25 11:03 Acetaminophen 325 Mg Tablet PO 04/29/25 22:48 650 mg Q6H PRN Administration Fever >99.5 Acetaminophen 1,000 mg 03/31/25 01:43 04/02/25 11:49 Acetaminophen 500 Mg Tablet PO 04/30/25 01:40 1,000 mg Q6H PRN Administration PAIN SCALE 1-3 (mild Hydrocodone Bitart/Acetaminophen 1 tab 03/31/25 17:17 04/04/25 07:59 Hydrocodone/Apap 5/325 Tablet PO 04/05/25 17:16 1 tab Q6HR PRN Administration moderate pain 4-6 Albuterol/Ipratropium 3 ml 03/30/25 22:49 Albuterol/Ipratropium (Duoneb) Rt Svetlana 3 Ml Nebu INH 04/29/25 22:48 Q2HR PRN SHORTNESS OF BREATH OR WHEEZE Albuterol/Ipratropium 3 ml 03/31/25 01:00 04/04/25 13:12 Albuterol/Ipratropium (Duoneb) Rt Svetlana 3 Ml Nebu INH 04/30/25 00:59 Not Given Q6HRRT SPARKLE Amlodipine Besylate 10 mg 03/30/25 23:50 04/04/25 08:00 Amlodipine Besylate 5 Mg Tablet PO 04/29/25 23:49 10 mg QDAY SPARKLE Administration Atorvastatin Calcium 40 mg 03/31/25 21:00 04/03/25 20:49 Atorvastatin Calcium 20 Mg Tablet PO 04/30/25 20:59 40 mg HS SPARKLE Administration Citric Acid/Sodium Citrate 30 ml 03/31/25 09:00 04/04/25 08:01 Citric Acid/Sodium Citr 15 Ml Udc (Bicitra) PO 04/30/25 08:59 30 ml BID SPARKLE Administration Enoxaparin Sodium 30 mg 03/31/25 09:00 04/04/25 08:01 Enoxaparin Sod Inj 30 Mg/0.3 Ml Syringe SC 04/14/25 08:59 30 mg QDAY SPARKLE Administration Heparin Sodium (Porcine) 3,100 unit 04/01/25 15:13 04/03/25 10:34 Heparin Sod Inj 1000 Unit/Ml Vial 10 Ml INDWELLCAT 04/15/25 15:12 3,100 unit PRN PRN Administration DIALYSIS Ceftriaxone Sodium/Dextrose 1 gm in 50 mls @ 100 mls/hr 03/31/25 21:00 04/03/25 20:48 Rocephin/D5w 1gm Iv Premix IV 04/07/25 20:59 100 mls/hr HS SPARKLE Administration Albumin Human 25 gm in 100 mls @ 100 mls/min 04/01/25 10:03 Albuminar-25 Ivpb IV PRN PRN DIALYSIS Labetalol HCl 10 mg 04/01/25 07:56 04/01/25 20:23 Labetalol Inj 5 Mg/Ml Vial 20 Ml IVP 05/01/25 07:59 10 mg Q4HR PRN Administration SBP > 160mmHg Lisinopril 20 mg 03/30/25 23:50 03/31/25 08:46 Lisinopril 20 Mg Tablet PO 04/29/25 23:49 20 mg QDAY SPARKLE Administration Ondansetron HCl 4 mg 03/30/25 22:49 04/01/25 14:36 Ondansetron Inj 2 Mg/Ml Inj 2 Ml IVP 04/29/25 22:48 4 mg Q6H PRN Administration NAUSEA OR VOMITING Protocol Pharmacy Consult 1 each 03/31/25 07:33 Pharmacy Renal Dose Adjustment 1 Ea XX 04/30/25 07:32 PRN PRN CONSULT
--- NOTE | 2025-04-04 15:30 | PC.SS ---
Dialysis referral submitted to [facility] location on [facility] awaiting response. Dr. Quan is covering for Dr. Watkins.
--- NOTE | 2025-04-04 15:42 | PC.SS ---
Rounding Note: Plan is to re-assess patient for outpatient dialysis tomorrow. Nephrology is consulting.
--- NOTE | 2025-04-04 16:41 | PD.RESPRO ---
Documentation for date of: 04/04/25 Patient is 80-year-old male with a past medical history of hypertension hyperlipidemia who was admitted on 03/30/2025 with concern for fluid overloaded and troponinemia. Patient is currently being treated for VIVEK likely ATN worsening progressive prerenal injury diarrhea proctitis noticed on CT abdomen. Given acute kidney injury with elevated BUN 36 and creatinine of 5.8, no dialysis planned for today. Reevaluate patient tomorrow and follow-up with renal panel, possible temporary dialysis if kidney function does not improve. Patient continues to have appropriate urine output. N.p.o. after midnight given the possibility of worsening renal function. Dr. Mcknight is following as Dr. Watkins currently on vacation. Dr. Martinez currently following given concern for prostatitis and diarrhea on admission which has resolved. To n.p.o. after midnight. Day 4 of antibiotics with ceftriaxone for community-acquired pneumonia, patient would likely benefit from 3 additional days. Blood cultures pending. Microcytic anemia noted, no active bleeding. Subjective Subjective Interval history: Patient was seen and examined at bedside. AM vitals and labs reviewed. The patient has no new complaints at this time and is eager to continue with dialysis treatments. Cr is fluctuating between 5.8 and 6.0. While Cr is significantly improved compared to the start of hemodialysis sessions (last session 04/03/25), the patients Cr still remains significantly high compared to baseline of 1.0. Additionally, eGFR continues to remain significantly low at 9. Nuclear renal US showed bilateral severely impaired renal function (04/04/2025).Input/output over 24hrs is 1000/1250, output is all through urine. No complaints of chest pain or shortness of breath at this time. Review of systems otherwise negative except for what is mentioned above. Exam Vital Signs Temp Pulse Resp BP Pulse Ox O2 Del Method O2 Flow Rate 97.6 F 70 18 147/66 H 92 L Nasal Cannula 4 04/04/25 12:00 04/04/25 16:00 04/04/25 12:04/04/25 12:04/04/25 12:00 04/04/25 12:04/04/25 12:00 Narrative Exam GENERAL: A&Ox3 and conversational. Awake, Not in acute distress NEURO: no focal neurological deficits HEENT: Atraumatic, Normocephalic. mucous membranes moist. Eyes open, symmetrical, & clear HEART: Normal Heart Sounds LUNGS: Clear to auscultation with no wheezing or crackles. ABDOMEN: soft, non-distended, non-tender, bowel sounds heard, no guarding or rebound tenderness SKIN: No Rash or ecchymoses EXTREMITIES: No edema, tenderness, able to move all 4 extremities, pedal pulses palpated Objective Labs 04/05/25 05:36 04/05/25 05:36 Labs: Laboratory Results - last 24 hr 04/04/25 05:43 WBC 10.0 RBC 2.96 L Hgb 8.9 L Hct 26.4 L MCV 89 MCH 30.1 MCHC 33.7 RDW Std Deviation 41.1 Plt Count 246 Neut % (Auto) 77 Lymph % (Auto) 8 L [place] % (Auto) 10 Eos % (Auto) 3 Baso % (Auto) 0 Neut # (Auto) 7.7 Lymph # (Auto) 0.8 L [place] # (Auto) 1.0 H Eos # (Auto) 0.3 Baso # (Auto) 0.0 Immature Gran # (Auto) 0.13 H Absolute Nucleated RBC 0.00 Immature Gran % 1 H Nucleated RBC % 0 Sodium 139 Potassium 4.1 Chloride 102 Carbon Dioxide 27.7 Anion Gap 9 BUN 36 H Creatinine 5.8 H* Estim Creat Clear Calc 11.2 L eGFR 9 L* BUN/Creatinine Ratio 6 L Glucose 112 H Calculated Osmolality 286 Calcium 8.9 Corrected Calcium 9.2 Phosphorus 5.5 H Albumin 3.6 ABG Interpretation ABG results: 03/31/25 07:22 VBG pH 7.33 VBG pCO2 32 L VBG pO2 53 VBG Base Excess -8 L Quality Measures Quality Measures none Advance care planning discussed with:: patient Assessment & Plan Assessment Current Active Medications: Generic Name Dose Route Start Last Admin Trade Name Freq PRN Reason Stop Dose Admin Acetaminophen 650 mg 03/30/25 22:49 04/03/25 11:03 Acetaminophen 325 Mg Tablet PO 04/29/25 22:48 650 mg Q6H PRN Administration Fever >99.5 Acetaminophen 1,000 mg 03/31/25 01:43 04/02/25 11:49 Acetaminophen 500 Mg Tablet PO 04/30/25 01:40 1,000 mg Q6H PRN Administration PAIN SCALE 1-3 (mild Hydrocodone Bitart/Acetaminophen 1 tab 03/31/25 17:17 04/04/25 07:59 Hydrocodone/Apap 5/325 Tablet PO 04/05/25 17:16 1 tab Q6HR PRN Administration moderate pain 4-6 Albuterol/Ipratropium 3 ml 03/30/25 22:49 Albuterol/Ipratropium (Duoneb) Rt Svetlana 3 Ml Nebu INH 04/29/25 22:48 Q2HR PRN SHORTNESS OF BREATH OR WHEEZE Albuterol/Ipratropium 3 ml 03/31/25 01:00 04/04/25 13:12 Albuterol/Ipratropium (Duoneb) Rt Svetlana 3 Ml Nebu INH 04/30/25 00:59 Not Given Q6HRRT SPARKLE Amlodipine Besylate 10 mg 03/30/25 23:50 04/04/25 08:00 Amlodipine Besylate 5 Mg Tablet PO 04/29/25 23:49 10 mg QDAY SPARKLE Administration Atorvastatin Calcium 40 mg 03/31/25 21:00 04/03/25 20:49 Atorvastatin Calcium 20 Mg Tablet PO 04/30/25 20:59 40 mg HS SPARKLE Administration Citric Acid/Sodium Citrate 30 ml 03/31/25 09:00 04/04/25 08:01 Citric Acid/Sodium Citr 15 Ml Udc (Bicitra) PO 04/30/25 08:59 30 ml BID SPARKLE Administration Enoxaparin Sodium 30 mg 03/31/25 09:00 04/04/25 08:01 Enoxaparin Sod Inj 30 Mg/0.3 Ml Syringe SC 04/14/25 08:59 30 mg QDAY SPARKLE Administration Heparin Sodium (Porcine) 3,100 unit 04/01/25 15:13 04/03/25 10:34 Heparin Sod Inj 1000 Unit/Ml Vial 10 Ml INDWELLCAT 04/15/25 15:12 3,100 unit PRN PRN Administration DIALYSIS Ceftriaxone Sodium/Dextrose 1 gm in 50 mls @ 100 mls/hr 03/31/25 21:00 04/03/25 20:48 Rocephin/D5w 1gm Iv Premix IV 04/07/25 20:59 100 mls/hr HS SPARKLE Administration Albumin Human 25 gm in 100 mls @ 100 mls/min 04/01/25 10:03 Albuminar-25 Ivpb IV PRN PRN DIALYSIS Labetalol HCl 10 mg 04/01/25 07:56 04/01/25 20:23 Labetalol Inj 5 Mg/Ml Vial 20 Ml IVP 05/01/25 07:59 10 mg Q4HR PRN Administration SBP > 160mmHg Lisinopril 20 mg 03/30/25 23:50 03/31/25 08:46 Lisinopril 20 Mg Tablet PO 04/29/25 23:49 20 mg QDAY SPARKLE Administration Ondansetron HCl 4 mg 03/30/25 22:49 04/01/25 14:36 Ondansetron Inj 2 Mg/Ml Inj 2 Ml IVP 04/29/25 22:48 4 mg Q6H PRN Administration NAUSEA OR VOMITING Protocol Pharmacy Consult 1 each 03/31/25 07:33 Pharmacy Renal Dose Adjustment 1 Ea XX 04/30/25 07:32 PRN PRN CONSULT Plan Mr. Brian is a 80-year-old male with past medical history as stated above who presented to the ED due to flu-like symptoms with fever chills, nausea, vomiting, diarrhea. #ATN requiring new onset hemodialysis #Anion gap metabolic acidosis - resolved -Pt was given IV fluids in the ED, and given 500cc NS bolus on floor -Baseline Creatinine (in 2022) was 1.0, on admission creatinine 6.8 -> 7.1, GFR 7 and BUN 73 -VBG (03/31/2025): pH 7.33, pCO2 32, PO 253, O2 saturation 87% -CT abdomen pelvis shows some perinephric stranding no hydronephrosis. However patient denies any flank pain, dysuria or urinary urgency. -Renal ultrasound shows minimal dilation of the renal calyces Plan: -Avoid nephrotoxins and renally dose medications -Temporary Vas-Cath is placed on 04/01/2025 patient has undergone dialysis 04/01, 04/02 and 04/03. Did not do dialysis and 04/04 -Continue Bicitra 30 mL BID -Continue strict intake and output measurements -Nuclear renal US showed bilateral severely impaired renal function (04/04/2025). -Despite the nuclear renal US result, patient is still producing output of 1250ml. Will monitor eGFR trend and consider dialysis based on the trend and fieldwork coordinator recommendations. -NPO after midnight, possible tunnel cath, renal panel depent. #Acute hypoxic respiratory failure, secondary to #Fluid overload in the setting of acute renal failure, versus #Community-acquired pneumonia -Although patient does not have a white count, patient have flulike symptoms for the last 1 week, which can the patient has risk of superimposed bacterial infection -Chest x-ray was suspicious for early pneumonia left base and right upper lobe as well as congestion -Echo done on 03/31/2025 - EF 65% with dilated IVC and moderate bilateral atrial enlargement Plan: -Supplemental oxygen wean as tolerated -Patient was given Bumex on admission which is discontinued today as patient does not appear to be fluid overloaded anymore -Strict I's and O's -Azithromycin 500mg 03/31-04/03 -Ceftriaxone 1g 03/31- -Blood cultures no growth at 24 hrs #A-fib with RVR- self resolved On 04/03 : Overnight team reported patient went into A-fib for less than a minute with a heart rate of 175 however when EKG was obtained EKG showed normal sinus rhythm and patient was converted back to normal sinus rhythm without any interventions. [id number] score 3, HAS-BLED 3 Plan: Will continue to monitor telemetry Keep magnesium above 2 and potassium above 4 #Diarrhea-resolved -Patient states for the past 1 week he has had diarrhea but denies any changes to his diet. Denies any recent antibiotic use -Last diarrheal episode 7 PM on 03/30 Plan: -Stool cultures ordered -C. difficile PCR ordered- canceled due to pt had a formed stool -Contact precaution ordered- discontinued #Proctitis Proctitis noted on CT abdomen likely setting of gastritis vs inflammatory bowel disease. Patient recommended to follow up as outpatient with Dr. Martinez given overall complex medical conditions during this hospitalization. CT of abdomen/Pelvis shows rectal wall thickening Plan -Outpatient follow up with gastroenterology -Consulted GI Dr. Martinez, appreciate recommendations #Elevated troponin Elevated troponin likely in the setting of NSTEMI type II demand ischemia likely secondary to VIVEK, likely ATN. Denied chest pain or pressure. -downtrending 0.267 -> .249 , no need to further trend. EKG (04/03/2025): no st elevation noted, R. BBB QRS >120 Plan -continue to monitor tele box #Primary Hypertension #Hyperlipidemia - home lisinopril, statin and amlodipine Plan -HOLD HOME MEDICATION OF LISINOPRIL GIVEN VIVEK, LIKELY ATN. Health Maintenance Disposition: Telemetry DVT Prophylaxis: enoxaparin 30mg Qdaily GI Prophylaxis: not indicated Diet: low sodium diet Lines: Peripheral lines Code status: Full Assessment and plan discussed with my attending physician Dr. Godinez and Dr. Diego (PGY-2) Dr. Kong (PGY-1)- Internal medicine resident Attending Provider Attestation/Addendum I have discussed and was present for the essential components of the history, physical examination, diagnosis, and treatment plan with the resident. I agree with the patient's care as documented by the resident and amended herein by me. Dakotah Godinez DO. Although this document has been carefully reviewed, there may still be some phonetic and other typographical errors. These errors are purely grammatical due to imperfections in the software program and should not be construed in any way to compromise the substance of the patient's medical care during this visit.
--- NOTE | 2025-04-04 16:58 | PD.IMPROG ---
Documentation for date of: 04/04/25 Subjective Subjective Interval history: Patient evaluated downtrending hemoglobin No signs of any active bleeding Exam Vital Signs Temp Pulse Resp BP Pulse Ox O2 Del Method O2 Flow Rate 97.8 F 74 20 156/81 H 94 L Nasal Cannula 4 04/04/25 16:00 04/04/25 16:00 04/04/25 16:00 04/04/25 16:00 04/04/25 16:00 04/04/25 16:00 04/04/25 16:00 Objective Labs 04/04/25 05:43 04/04/25 05:43 Labs: Laboratory Results - last 24 hr 04/04/25 05:43 WBC 10.0 RBC 2.96 L Hgb 8.9 L Hct 26.4 L MCV 89 MCH 30.1 MCHC 33.7 RDW Std Deviation 41.1 Plt Count 246 Neut % (Auto) 77 Lymph % (Auto) 8 L [place] % (Auto) 10 Eos % (Auto) 3 Baso % (Auto) 0 Neut # (Auto) 7.7 Lymph # (Auto) 0.8 L [place] # (Auto) 1.0 H Eos # (Auto) 0.3 Baso # (Auto) 0.0 Immature Gran # (Auto) 0.13 H Absolute Nucleated RBC 0.00 Immature Gran % 1 H Nucleated RBC % 0 Sodium 139 Potassium 4.1 Chloride 102 Carbon Dioxide 27.7 Anion Gap 9 BUN 36 H Creatinine 5.8 H* Estim Creat Clear Calc 11.2 L eGFR 9 L* BUN/Creatinine Ratio 6 L Glucose 112 H Calculated Osmolality 286 Calcium 8.9 Corrected Calcium 9.2 Phosphorus 5.5 H Albumin 3.6 Impressions Impression: Proctitis Anemia multifactorial No signs of any active bleeding Outpatient colonoscopy once patient is stabilized ABG Interpretation ABG results: 03/31/25 07:22 VBG pH 7.33 VBG pCO2 32 L VBG pO2 53 VBG Base Excess -8 L Assessment & Plan A&P Narrative # Abnormal CT scan of the abdomen pelvis showing thickening of the rectal wall differential diagnoses include Proctitis due to underlying inflammatory bowel disease Unlikely infiltrating malignancy Possibly under distention of the rectum Suggestions Patient has multiple medical issues going on Let him improve Will consider fiberoptic colonoscopy prior to discharge Other medical problems include VIVEK pulmonary edema resolving Congestive heart failure improving Acute hypoxic respiratory failure improving Pneumonia Elevated troponin Thank you very much for the opportunity to participate in the care of this patient Time Spent With Patient Time: Total time spent is greater than 50% in coordination of care (as documented) at patient's floor/unit and/or counseling patient:
--- NOTE | 2025-04-04 17:04 | PC.NURSE ---
o2 sat at rest on room air 86%.applied 3L o2 NC,o2 sat up to 91%.
[2025-04-04] MEDS: ATORVASTATIN CALCIUM 20 MG TABLET 40 MG PO (20:31)
[2025-04-04] MEDS: cefTRIAXone/D5w 1gm IV premix 1 GM/50 ML BAG IV (20:32)
[2025-04-04] MEDS: LABETALOL INJ 5 MG/ML VIAL 20 ML 10 MG IVP (20:35)
[2025-04-05] VITALS (35 sets, daily range): BP systolic 130–177; BP diastolic 59–86; PULSE 56–88; RESP 13–23; TEMP 36.2–37.1; O2SAT 92–97; BMI 32.3
--- NOTE | 2025-04-05 | XR_ITS ---
Ultrasound-guided needle placement right internal jugular vein Permanent tunneled dialysis catheter insertion, percutaneous Fluoroscopy AP chest, portable, single view. Date and time of procedure: April 05, 2025 1347 hours INDICATIONS: Renal failure patient with nonfunctioning temporary dialysis catheter Informed consent provided Technique: A timeout was completed verifying correct patient, procedure, site, positioning, and special equipment if applicable. The patient was placed in a dependent position appropriate for dialysis catheter placement based on the vein to be cannulated. The patient'sright neck was prepped and draped in sterile fashion. Maximum Sterile Barrier Technique used including cap, mask, sterile gown, sterile gloves, and sterile full body drape. If ultrasound technique used: sterile gel and sterile probe covers. Hand Hygiene performed using proper scrub, soap and water, or alcohol-based hand rub. 1% lidocaine was used to anesthetize the surrounding skin area [facility] portable ultrasound apparatus utilized to confirm patency of the right internal jugular vein Utilizing ultrasonographic guidance successful 21-gauge needle puncture into the right internal jugular vein. Ultrasound images were recorded and stored. Vessel micropuncture was performed with 21-gauge needle. 0.18 wire guide is introduced into the vein. 0.18 wire is introduced into the vena cava under fluoroscopy. Subcutaneous tunnel formed in the upper chest. Permanent tunneled dialysis catheter placed in the subcutaneous tunnel. Dilators were introduced over the J-wire guide. Tunneled dialysis catheter is introduced through a dilator with venous sheath into the superior vena cava under fluoroscopic guidance. The catheter is sutured in place to the skin and a sterile dressing applied. Perfusion to the extremity distal to the point of catheter insertion is checked and found to be adequate Attending radiologist was present for the entire procedure Estimated blood loss2 cc. The patient tolerated the procedure well and there were no complications Impression: Successful ultrasound-guided needle placement right internal jugular vein Successful permanent tunneled dialysis catheter insertion, percutaneous Fluoroscopy 0.2 minute radiation dose 3.77 milligray 1 spot fluoroscopic chest film. AP chest performed at completion procedure demonstrates satisfactory position dialysis catheter. May use dialysis catheter.
[2025-04-05] MEDS: ALBUTEROL/IPRATROPIUM (Duoneb) RT SOL 3 ML NEBU INH ×2 (00:42→07:19)
--- NOTE | 2025-04-05 02:04 | PC.NURSE ---
[facility]
[2025-04-05] MEDS: LABETALOL INJ 5 MG/ML VIAL 20 ML 10 MG IVP (04:27)
[2025-04-05 06:22] LABS: Basophils # (Auto) 0.0 Thou/mm3 (0.0-0.2); Basophils % (Auto) 0 % (0-2.5); Eosinophils # (Auto) 0.4 Thou/mm3 (0.0-0.5); Eosinophils % (Auto) 3 % (0-10); Hematocrit 26.4 % (41.0-53.0); Hemoglobin 9.0 g/dL (13.5-16.0); Immature Granulocytes Auto 0.26 Thou/mm3 (0.00-0.00); Lymphocytes # (Auto) 0.8 Thou/mm3 (1.0-4.8); Lymphocytes % (Auto) 7 % (10-50); Mean Corpuscular HGB Conc 34.1 g/dl (31.0-37.0); Mean Corpuscular Hemoglobin 30.5 pg (25.0-35.0); Mean Corpuscular Volume 90 fL (80-100); Monocytes # (Auto) 1.1 Thou/mm3 (0.0-0.8); Monocytes % (Auto) 10 % (0-12); Neutrophils # (Auto) 8.5 Thou/mm3 (1.8-7.7); Neutrophils % (Auto) 77 % (37-80); Nucleated Red Blood Cell # 0.00 Thou/mm3 (0.00-0.00); Nucleated Red Blood Cell % 0 /100 WBC (0); Platelet Count 215 Thou/mm3 (140-440); RDW Standard Deviation 41.4 fL (35.1-43.9); Red Blood Count 2.95 Miln/mm3 (4.50-5.90); White Blood Count 11.0 Thou/mm3 (3.8-10.6)
[2025-04-05 07:24] LABS: Alanine Aminotransferase 36 U/L (10-49); Albumin, Serum 3.7 gm/dL (3.4-4.8); Albumin/Globulin Ratio 1.2 (1.2-2.2); Alkaline Phosphatase 47 U/L (46-116); Anion Gap 12 (7-16); Aspartate Amino Transferase 29 U/L (0-34); BUN/Creatinine Ratio 7 Ratio (12-20); Bilirubin,Total 0.3 mg/dL (0.3-1.2); Blood Urea Nitrogen 46 mg/dL (9-23); Calcium 9.2 mg/dL (8.3-10.6); Calcium (Corrected) 9.4 mg/dL (8.5-10.1); Carbon Dioxide 26.6 mMol/L (20.0-31.0); Chloride 99 mMol/L (98-107); Creatinine (Component) 7.0 mg/dL (0.6-1.3); Estimated Creatinine Clearance 9.3 mL/min (>60); Globulin 3.0 gm/dL (2.3-3.5); Glucose 99 mg/dL (74-106); Magnesium 2.1 mg/dL (1.6-2.6); Osmolality,Calculated 287 (275-295); Phosphorous 7.3 mg/dL (2.4-5.1); Potassium 4.3 mMol/L (3.4-5.1); Sodium 138 mMol/L (136-145); Total Protein 6.7 gm/dL (5.7-8.2); eGFR 7 See Note
--- NOTE | 2025-04-05 08:40 | PC.NURSE ---
Spoke with Cristine, said to hold 9am meds due to pending dialysis cath change and dialysis
[2025-04-05 10:10] LABS: INR 1.1 (0.9-1.3); Partial Thromboplastin Time 35.5 Seconds (22.0-36.0); Prothrombin Time 12.1 Seconds (9.0-12.2)
--- NOTE | 2025-04-05 12:29 | PD.IMPROG ---
Documentation for date of: 04/05/25 Subjective Subjective Interval history: Patient evaluated hemoglobin hematocrit 9.0 and 26.4 Exam Vital Signs Temp Pulse Resp BP Pulse Ox O2 Del Method O2 Flow Rate 98.2 F 78 18 155/78 H 94 L Nasal Cannula 4 04/05/25 08:00 04/05/25 08:43 04/05/25 08:00 04/05/25 08:43 04/05/25 08:00 04/05/25 08:00 04/05/25 08:00 Objective Labs 04/05/25 05:36 04/05/25 05:36 Labs: Laboratory Results - last 24 hr 04/05/25 05:36 WBC 11.0 H RBC 2.95 L Hgb 9.0 L Hct 26.4 L MCV 90 MCH 30.5 MCHC 34.1 RDW Std Deviation 41.4 Plt Count 215 D Neut % (Auto) 77 Lymph % (Auto) 7 L [place] % (Auto) 10 Eos % (Auto) 3 Baso % (Auto) 0 Neut # (Auto) 8.5 H Lymph # (Auto) 0.8 L [place] # (Auto) 1.1 H Eos # (Auto) 0.4 Baso # (Auto) 0.0 Immature Gran # (Auto) 0.26 H Absolute Nucleated RBC 0.00 Immature Gran % 2 H Nucleated RBC % 0 PT 12.1 INR 1.1 APTT 35.5 Sodium 138 Potassium 4.3 Chloride 99 Carbon Dioxide 26.6 Anion Gap 12 BUN 46 H Creatinine 7.0 H* D Estim Creat Clear Calc 9.3 L eGFR 7 L* BUN/Creatinine Ratio 7 L Glucose 99 Calculated Osmolality 287 Calcium 9.2 Corrected Calcium 9.4 Phosphorus 7.3 H Magnesium 2.1 Total Bilirubin 0.3 AST 29 ALT 36 Alkaline Phosphatase 47 Total Protein 6.7 Albumin 3.7 Globulin 3.0 Albumin/Globulin Ratio 1.2 Impressions Impression: Proctitis renal failure on hemodialysis Stable hemoglobin hematocrit Continue current management ABG Interpretation ABG results: 03/31/25 07:22 VBG pH 7.33 VBG pCO2 32 L VBG pO2 53 VBG Base Excess -8 L Assessment & Plan A&P Narrative # Abnormal CT scan of the abdomen pelvis showing thickening of the rectal wall differential diagnoses include Proctitis due to underlying inflammatory bowel disease Unlikely infiltrating malignancy Possibly under distention of the rectum Suggestions Patient has multiple medical issues going on Let him improve Will consider fiberoptic colonoscopy prior to discharge Other medical problems include VIVEK pulmonary edema resolving Congestive heart failure improving Acute hypoxic respiratory failure improving Pneumonia Elevated troponin Thank you very much for the opportunity to participate in the care of this patient Time Spent With Patient Time: Total time spent is greater than 50% in coordination of care (as documented) at patient's floor/unit and/or counseling patient:
--- NOTE | 2025-04-05 13:03 | ESPR_ITS ---
Documentation for date of: 04/05/25 Subjective Subjective Interval history: Senior attestation patient examined at bedside. Overall, worsening renal function with elevated BUN 46 and creatinine of 7 and GFR of 7. Given overall renal failure, nephrology updated, recommending patient tunneled permacath. Patient scheduled for tunnel catheter by radiology and dialysis later this evening. Patient will need dialysis chair time. Renal scan Nuclear Medicne, bilateral severely impaired renal function. Interval history: Patient was seen and examined at bedside. AM vitals and labs reviewed. The patient complains generalized body ache. Cr is increased to 7.0 from 5.8. He did not receive any hemodialysis since 04/03/2025. Additionally, eGFR decreased to 9L from 7L. Nuclear renal US showed bilateral severely impaired renal function (04/04/2025).Input/output net balance was +810, output is all through urine. Denies chest pain or shortness of breath at this time. Review of systems otherwise negative except for what is mentioned above. Exam Vital Signs Temp Pulse Resp BP Pulse Ox O2 Del Method O2 Flow Rate 98.2 F 78 18 155/78 H 94 L Nasal Cannula 4 04/05/25 08:00 04/05/25 08:43 04/05/25 08:00 04/05/25 08:43 04/05/25 08:00 04/05/25 08:00 04/05/25 08:00 Narrative Exam GENERAL: A&Ox3 and conversational. Awake, Not in acute distress NEURO: no focal neurological deficits HEENT: Atraumatic, Normocephalic. mucous membranes moist. Eyes open, symmetrical, & clear HEART: Normal Heart Sounds LUNGS: Clear to auscultation with no wheezing or crackles. ABDOMEN: soft, non-distended, non-tender, bowel sounds heard, no guarding or rebound tenderness SKIN: No Rash or ecchymoses EXTREMITIES: No edema, tenderness, able to move all 4 extremities, pedal pulses palpated Objective Labs 04/05/25 05:36 04/05/25 05:36 Labs: Laboratory Results - last 24 hr 04/05/25 05:36 WBC 11.0 H RBC 2.95 L Hgb 9.0 L Hct 26.4 L MCV 90 MCH 30.5 MCHC 34.1 RDW Std Deviation 41.4 Plt Count 215 D Neut % (Auto) 77 Lymph % (Auto) 7 L [place] % (Auto) 10 Eos % (Auto) 3 Baso % (Auto) 0 Neut # (Auto) 8.5 H Lymph # (Auto) 0.8 L [place] # (Auto) 1.1 H Eos # (Auto) 0.4 Baso # (Auto) 0.0 Immature Gran # (Auto) 0.26 H Absolute Nucleated RBC 0.00 Immature Gran % 2 H Nucleated RBC % 0 PT 12.1 INR 1.1 APTT 35.5 Sodium 138 Potassium 4.3 Chloride 99 Carbon Dioxide 26.6 Anion Gap 12 BUN 46 H Creatinine 7.0 H* D Estim Creat Clear Calc 9.3 L eGFR 7 L* BUN/Creatinine Ratio 7 L Glucose 99 Calculated Osmolality 287 Calcium 9.2 Corrected Calcium 9.4 Phosphorus 7.3 H Magnesium 2.1 Total Bilirubin 0.3 AST 29 ALT 36 Alkaline Phosphatase 47 Total Protein 6.7 Albumin 3.7 Globulin 3.0 Albumin/Globulin Ratio 1.2 ABG Interpretation ABG results: 03/31/25 07:22 VBG pH 7.33 VBG pCO2 32 L VBG pO2 53 VBG Base Excess -8 L Quality Measures Quality Measures none Advance care planning discussed with:: patient Assessment & Plan Assessment Current Active Medications: Generic Name Dose Route Start Last Admin Trade Name Freq PRN Reason Stop Dose Admin Acetaminophen 650 mg 03/30/25 22:49 04/03/25 11:03 Acetaminophen 325 Mg Tablet PO 04/29/25 22:48 650 mg Q6H PRN Administration Fever >99.5 Acetaminophen 1,000 mg 03/31/25 01:43 04/02/25 11:49 Acetaminophen 500 Mg Tablet PO 04/30/25 01:40 1,000 mg Q6H PRN Administration PAIN SCALE 1-3 (mild Hydrocodone Bitart/Acetaminophen 1 tab 03/31/25 17:17 04/04/25 20:35 Hydrocodone/Apap 5/325 Tablet PO 04/05/25 17:16 1 tab Q6HR PRN Administration moderate pain 4-6 Albuterol/Ipratropium 3 ml 03/30/25 22:49 Albuterol/Ipratropium (Duoneb) Rt Svetlana 3 Ml Nebu INH 04/29/25 22:48 Q2HR PRN SHORTNESS OF BREATH OR WHEEZE Albuterol/Ipratropium 3 ml 03/31/25 01:00 04/05/25 07:19 Albuterol/Ipratropium (Duoneb) Rt Svetlana 3 Ml Nebu INH 04/30/25 00:59 3 ml Q6HRRT SPARKLE Administration Amlodipine Besylate 10 mg 03/30/25 23:50 04/05/25 08:43 Amlodipine Besylate 5 Mg Tablet PO 04/29/25 23:49 Not Given QDAY SPARKLE Atorvastatin Calcium 40 mg 03/31/25 21:00 04/04/25 20:31 Atorvastatin Calcium 20 Mg Tablet PO 04/30/25 20:59 40 mg HS SPARKLE Administration Citric Acid/Sodium Citrate 30 ml 03/31/25 09:00 04/05/25 08:44 Citric Acid/Sodium Citr 15 Ml Udc (Bicitra) PO 04/30/25 08:59 Not Given BID SPARKLE Enoxaparin Sodium 30 mg 03/31/25 09:00 04/05/25 08:44 Enoxaparin Sod Inj 30 Mg/0.3 Ml Syringe SC 04/14/25 08:59 Not Given QDAY SPARKLE Heparin Sodium (Porcine) 3,100 unit 04/01/25 15:13 04/03/25 10:34 Heparin Sod Inj 1000 Unit/Ml Vial 10 Ml INDWELLCAT 04/15/25 15:12 3,100 unit PRN PRN Administration DIALYSIS Ceftriaxone Sodium/Dextrose 1 gm in 50 mls @ 100 mls/hr 03/31/25 21:00 04/04/25 20:32 Rocephin/D5w 1gm Iv Premix IV 04/07/25 20:59 100 mls/hr HS SPARKLE Administration Albumin Human 25 gm in 100 mls @ 100 mls/min 04/01/25 10:03 Albuminar-25 Ivpb IV PRN PRN DIALYSIS Labetalol HCl 10 mg 04/01/25 07:56 04/05/25 04:27 Labetalol Inj 5 Mg/Ml Vial 20 Ml IVP 05/01/25 07:59 10 mg Q4HR PRN Administration SBP > 160mmHg Lisinopril 20 mg 03/30/25 23:50 03/31/25 08:46 Lisinopril 20 Mg Tablet PO 04/29/25 23:49 20 mg QDAY SPARKLE Administration Ondansetron HCl 4 mg 03/30/25 22:49 04/01/25 14:36 Ondansetron Inj 2 Mg/Ml Inj 2 Ml IVP 04/29/25 22:48 4 mg Q6H PRN Administration NAUSEA OR VOMITING Protocol Pharmacy Consult 1 each 03/31/25 07:33 Pharmacy Renal Dose Adjustment 1 Ea XX 04/30/25 07:32 PRN PRN CONSULT Plan Mr. Brian is a 80-year-old male with past medical history as stated above who presented to the ED due to flu-like symptoms with fever chills, nausea, vomiting, diarrhea. #ATN requiring new onset hemodialysis #Anion gap metabolic acidosis - resolved -Pt was given IV fluids in the ED, and given 500cc NS bolus on floor -Baseline Creatinine (in 2022) was 1.0, on admission creatinine 6.8 -> 7.1, GFR 7 and BUN 73 -VBG (03/31/2025): pH 7.33, pCO2 32, PO 253, O2 saturation 87% -CT abdomen pelvis shows some perinephric stranding no hydronephrosis. However patient denies any flank pain, dysuria or urinary urgency. -Renal ultrasound shows minimal dilation of the renal calyces Plan: -Avoid nephrotoxins and renally dose medications -Temporary Vas-Cath is placed on 04/01/2025 patient has undergone dialysis 04/01, 04/02 and 04/03. Did not do dialysis and 04/04 -Continue Bicitra 30 mL BID -Continue strict intake and output measurements -Nuclear renal US showed bilateral severely impaired renal function (04/04/2025). -Restarting hemodialysis due to worsening BUN, Cr, and eGFR after pausing a day of hemodialysis on 04/04/25. The patient will require a tunneled dialysis catheter placed in abdomen to allow for more efficient outpatient hemodialysis. #Acute hypoxic respiratory failure, secondary to #Fluid overload in the setting of acute renal failure, versus #Community-acquired pneumonia -Although patient does not have a white count, patient have flulike symptoms for the last 1 week, which can the patient has risk of superimposed bacterial infection -Chest x-ray was suspicious for early pneumonia left base and right upper lobe as well as congestion -Echo done on 03/31/2025 - EF 65% with dilated IVC and moderate bilateral atrial enlargement Plan: -Supplemental oxygen wean as tolerated -Patient was given Bumex on admission which is discontinued today as patient does not appear to be fluid overloaded anymore -Strict I's and O's -Azithromycin 500mg 03/31-04/03 -Ceftriaxone 1g 03/31- -Blood cultures no growth at 24 hrs #A-fib with RVR- self resolved On 04/03 : Overnight team reported patient went into A-fib for less than a minute with a heart rate of 175 however when EKG was obtained EKG showed normal sinus rhythm and patient was converted back to normal sinus rhythm without any interventions. [id number] score 3, HAS-BLED 3 Plan: Will continue to monitor telemetry Keep magnesium above 2 and potassium above 4 #Diarrhea-resolved -Patient states for the past 1 week he has had diarrhea but denies any changes to his diet. Denies any recent antibiotic use -Last diarrheal episode 7 PM on 03/30 Plan: -Stool cultures ordered -C. difficile PCR ordered- canceled due to pt had a formed stool -Contact precaution ordered- discontinued #Proctitis Proctitis noted on CT abdomen likely setting of gastritis vs inflammatory bowel disease. Patient recommended to follow up as outpatient with Dr. Martinez given overall complex medical conditions during this hospitalization. CT of abdomen/Pelvis shows rectal wall thickening Plan -Outpatient follow up with gastroenterology -Consulted GI Dr. Martinez, appreciate recommendations #Elevated troponin Elevated troponin likely in the setting of NSTEMI type II demand ischemia likely secondary to VIVEK, likely ATN. Denied chest pain or pressure. -downtrending 0.267 -> .249 , no need to further trend. EKG (04/03/2025): no st elevation noted, R. BBB QRS >120 Plan -continue to monitor tele box #Primary Hypertension #Hyperlipidemia - home lisinopril, statin and amlodipine Plan -HOLD HOME MEDICATION OF LISINOPRIL GIVEN VIVEK, LIKELY ATN. Health Maintenance Disposition: Telemetry DVT Prophylaxis: enoxaparin 30mg Qdaily GI Prophylaxis: not indicated Diet: low sodium diet Lines: Peripheral lines Code status: Full Assessment and plan discussed with my attending physician Dr. Godinez and Dr. Diego (PGY-2) Dr. Kong (PGY-1)- Internal medicine resident Attending Provider Attestation/Addendum I have discussed and was present for the essential components of the history, physical examination, diagnosis, and treatment plan with the resident. I agree with the patient's care as documented by the resident and amended herein by me. Dakotah Godinez DO. Although this document has been carefully reviewed, there may still be some phonetic and other typographical errors. These errors are purely grammatical due to imperfections in the software program and should not be construed in any way to compromise the substance of the patient's medical care during this visit.
--- NOTE | 2025-04-05 13:05 | PC.SS ---
Oxygen Pt is discharged in a chronic stable state and has been treated optimally and has other respiratory needs. Oxygen has been ordered due to acute hypoxic respiratory failure.?
--- NOTE | 2025-04-05 13:23 | ESPR_ITS ---
Documentation for date of: 04/05/25 Subjective Subjective Interval history: Overnight events: No acute events overnight. Patient was seen and examined at bedside earlier this morning. AM vitals and labs reviewed. Hemodialysis held yesterday. Renal function appears to be worsening due to BUN increasing from 36 to 46, Cr 5.8 to 7.0, and eGFR 9 to 7 as compared to yesterday AM labs. Patient complained of SOB, lungs hurting , and general soreness, but the patient stated that these are not new symptoms for him. He denies pain elsewhere, dysuria, hematuria, and fever/chills. No other complaints, and the patient is very cooperative to attempt further dialysis treatments if necessary. Review of systems otherwise negative except for what is mentioned above. Exam Vital Signs Temp Pulse Resp BP Pulse Ox O2 Del Method O2 Flow Rate 98.2 F 78 18 155/78 H 94 L Nasal Cannula 4 04/05/25 08:00 04/05/25 08:43 04/05/25 08:00 04/05/25 08:43 04/05/25 08:00 04/05/25 08:00 04/05/25 08:00 Narrative Exam Physical Exam: General: Alert, no acute distress. Skin: Warm, dry, intact, no obvious rash. Head: Normocephalic, atraumatic. Cardiovascular: Regular rate and rhythm, no murmur, +S1/S2. Respiratory: Lungs are clear to auscultation, respirations unlabored, no crackles, no wheezing. Gastrointestinal: Soft, nontender, non-distended. No guarding or rebound tenderness. Extremities: No edema, no cyanosis, no clubbing. 2+ radial pulse bilaterally. Neuro: No focal deficits observed. Conversant, moving all extremities. No overt cerebellar signs/incoordination. Psychiatric: Cooperative, appropriate affect. Objective Labs 04/06/25 06:20 04/06/25 06:20 Labs: Laboratory Results - last 24 hr 04/05/25 05:36 WBC 11.0 H RBC 2.95 L Hgb 9.0 L Hct 26.4 L MCV 90 MCH 30.5 MCHC 34.1 RDW Std Deviation 41.4 Plt Count 215 D Neut % (Auto) 77 Lymph % (Auto) 7 L [place] % (Auto) 10 Eos % (Auto) 3 Baso % (Auto) 0 Neut # (Auto) 8.5 H Lymph # (Auto) 0.8 L [place] # (Auto) 1.1 H Eos # (Auto) 0.4 Baso # (Auto) 0.0 Immature Gran # (Auto) 0.26 H Absolute Nucleated RBC 0.00 Immature Gran % 2 H Nucleated RBC % 0 PT 12.1 INR 1.1 APTT 35.5 Sodium 138 Potassium 4.3 Chloride 99 Carbon Dioxide 26.6 Anion Gap 12 BUN 46 H Creatinine 7.0 H* D Estim Creat Clear Calc 9.3 L eGFR 7 L* BUN/Creatinine Ratio 7 L Glucose 99 Calculated Osmolality 287 Calcium 9.2 Corrected Calcium 9.4 Phosphorus 7.3 H Magnesium 2.1 Total Bilirubin 0.3 AST 29 ALT 36 Alkaline Phosphatase 47 Total Protein 6.7 Albumin 3.7 Globulin 3.0 Albumin/Globulin Ratio 1.2 ABG Interpretation ABG results: 03/31/25 07:22 VBG pH 7.33 VBG pCO2 32 L VBG pO2 53 VBG Base Excess -8 L Quality Measures Quality Measures none Advance care planning discussed with:: patient Assessment & Plan Assessment Current Active Medications: Generic Name Dose Route Start Last Admin Trade Name Freq PRN Reason Stop Dose Admin Acetaminophen 650 mg 03/30/25 22:49 04/03/25 11:03 Acetaminophen 325 Mg Tablet PO 04/29/25 22:48 650 mg Q6H PRN Administration Fever >99.5 Acetaminophen 1,000 mg 03/31/25 01:43 04/02/25 11:49 Acetaminophen 500 Mg Tablet PO 04/30/25 01:40 1,000 mg Q6H PRN Administration PAIN SCALE 1-3 (mild Hydrocodone Bitart/Acetaminophen 1 tab 03/31/25 17:17 04/04/25 20:35 Hydrocodone/Apap 5/325 Tablet PO 04/05/25 17:16 1 tab Q6HR PRN Administration moderate pain 4-6 Albuterol/Ipratropium 3 ml 03/30/25 22:49 Albuterol/Ipratropium (Duoneb) Rt Svetlana 3 Ml Nebu INH 04/29/25 22:48 Q2HR PRN SHORTNESS OF BREATH OR WHEEZE Albuterol/Ipratropium 3 ml 03/31/25 01:00 04/05/25 07:19 Albuterol/Ipratropium (Duoneb) Rt Svetlana 3 Ml Nebu INH 04/30/25 00:59 3 ml Q6HRRT SPARKLE Administration Amlodipine Besylate 10 mg 03/30/25 23:50 04/05/25 08:43 Amlodipine Besylate 5 Mg Tablet PO 04/29/25 23:49 Not Given QDAY SPARKLE Atorvastatin Calcium 40 mg 03/31/25 21:00 04/04/25 20:31 Atorvastatin Calcium 20 Mg Tablet PO 04/30/25 20:59 40 mg HS SPARKLE Administration Citric Acid/Sodium Citrate 30 ml 03/31/25 09:00 04/05/25 08:44 Citric Acid/Sodium Citr 15 Ml Udc (Bicitra) PO 04/30/25 08:59 Not Given BID SPARKLE Enoxaparin Sodium 30 mg 03/31/25 09:00 04/05/25 08:44 Enoxaparin Sod Inj 30 Mg/0.3 Ml Syringe SC 04/14/25 08:59 Not Given QDAY SPARKLE Heparin Sodium (Porcine) 3,100 unit 04/01/25 15:13 04/03/25 10:34 Heparin Sod Inj 1000 Unit/Ml Vial 10 Ml INDWELLCAT 04/15/25 15:12 3,100 unit PRN PRN Administration DIALYSIS Ceftriaxone Sodium/Dextrose 1 gm in 50 mls @ 100 mls/hr 03/31/25 21:00 04/04/25 20:32 Rocephin/D5w 1gm Iv Premix IV 04/07/25 20:59 100 mls/hr HS SPARKLE Administration Albumin Human 25 gm in 100 mls @ 100 mls/min 04/01/25 10:03 Albuminar-25 Ivpb IV PRN PRN DIALYSIS Labetalol HCl 10 mg 04/01/25 07:56 04/05/25 04:27 Labetalol Inj 5 Mg/Ml Vial 20 Ml IVP 05/01/25 07:59 10 mg Q4HR PRN Administration SBP > 160mmHg Lisinopril 20 mg 03/30/25 23:50 03/31/25 08:46 Lisinopril 20 Mg Tablet PO 04/29/25 23:49 20 mg QDAY SPARKLE Administration Ondansetron HCl 4 mg 03/30/25 22:49 04/01/25 14:36 Ondansetron Inj 2 Mg/Ml Inj 2 Ml IVP 04/29/25 22:48 4 mg Q6H PRN Administration NAUSEA OR VOMITING Protocol Pharmacy Consult 1 each 03/31/25 07:33 Pharmacy Renal Dose Adjustment 1 Ea XX 04/30/25 07:32 PRN PRN CONSULT Plan Mr. Brian is a 80 year old gentleman with a past medical history of HTN and HLD who presented with flu-like symptoms. Nephrology was consulted due to initial labs suggesting an acute kidney injury due to highly elevated Cr and significantly decreased eGFR. #Acute renal failure 2/2 acute tubular necrosis requiring new onset hemodialysis -continuw HD. The patient will require a tunneled dialysis catheter placed in abdomen to allow for more efficient outpatient hemodialysis. -Nephrology will continue to monitor. Rest of conditions to continue current management per primary team: - Acute hypoxic respiratory failure secondary to fluid overload vs CAP - A-fib w/ RVR - Proctitis - HTN - HLD Patient was discussed with the Nephrology attending, Dr. Quan. Thank you for allowing us to participate in the care of this patient. Ismael Yu, PGY-1 Attending Provider Attestation/Addendum Pt is seen and examined. labs reviewed. notes reviewed. agree with assessment and plan and findings of resident. Marc Quan MD
[2025-04-05] MEDS: LIDOCAINE INJ PF 1% 30 ML VIAL 9 ML INFL (14:34)
[2025-04-05] MEDS: fentaNYL CIT INJ 50 mCg/ML AMP 2ML 75 MCG IVP (14:34)
[2025-04-05] MEDS: HEPARIN SOD LOCK SYR 100 UNIT/ML 500 UNIT STFIELD (14:37)
[2025-04-05] MEDS: HEPARIN SOD INJ 1000 UNIT/ML VIAL 3300 UNIT INDWELLCAT (14:50)
--- NOTE | 2025-04-05 16:07 | PC.SS ---
DME order to be provided by [facility]. Booked on [employer].
--- NOTE | 2025-04-05 16:10 | PC.SS ---
PRODUCTION STATISTICAL CLERK contacted [facility] to provide update that patient will be new dialysis patient. Awaiting charting of tunnel catheter for submittal. PRODUCTION STATISTICAL CLERK informed [facility] Dozier that Dr. Quan is covering patient for Dr. Watkins. [facility] staff to review clinicals and provide follow up. PRODUCTION STATISTICAL CLERK updated bedside nurse.
[2025-04-05] MEDS: ACETAMINOPHEN 500 MG TABLET 1000 MG PO (17:02)
--- NOTE | 2025-04-05 20:29 | PC.NURSE ---
TX PAUSED ALL BLOOD RETURNED D/T INCREASED LIQUOR INSPECTOR THAT WAS UNABLE TO BE REDUCED DESPITE ALL INTERVENTIONS. WILL RESTRING MACHINE AND ATTEMPT TO RESUME TX. MD IBARRA NOTIFIED.
--- NOTE | 2025-04-05 20:30 | PC.NURSE ---
TX RESUMED W/O COMPLICATIONS, UF GOAL INCREASED TOLERATED TO ACCOUNT FOR EXTRA FLUID ADMINISTRATION DURING 2ND INITIATION OF TX, WILL CONT. TO MONITOR
[2025-04-05] MEDS: HEPARIN SOD INJ 1000 UNIT/ML VIAL 10 ML 3300 UNIT INDWELLCAT (22:02)
[2025-04-05] MEDS: ATORVASTATIN CALCIUM 20 MG TABLET 40 MG PO (22:21)
[2025-04-05] MEDS: CITRIC ACID/SODIUM CITR 15 ML UDC (BICITRA) 30 ML PO (22:21)
[2025-04-05] MEDS: cefTRIAXone/D5w 1gm IV premix 1 GM/50 ML BAG IV (22:22)
[2025-04-06] VITALS (13 sets, daily range): BP systolic 133–149; BP diastolic 66–77; PULSE 64–84; RESP 15–22; TEMP 36.5–36.7; O2SAT 92–98; BMI 31.4
[2025-04-06] MEDS: ALBUTEROL/IPRATROPIUM (Duoneb) RT SOL 3 ML NEBU INH ×3 (06:38→20:16)
[2025-04-06 07:28] LABS: Alanine Aminotransferase 35 U/L (10-49); Albumin, Serum 3.8 gm/dL (3.4-4.8); Albumin/Globulin Ratio 1.2 (1.2-2.2); Alkaline Phosphatase 49 U/L (46-116); Anion Gap 9 (7-16); Aspartate Amino Transferase 29 U/L (0-34); BUN/Creatinine Ratio 6 Ratio (12-20); Bilirubin,Total 0.4 mg/dL (0.3-1.2); Blood Urea Nitrogen 31 mg/dL (9-23); Calcium 9.1 mg/dL (8.3-10.6); Calcium (Corrected) 9.3 mg/dL (8.5-10.1); Carbon Dioxide 28.4 mMol/L (20.0-31.0); Chloride 99 mMol/L (98-107); Creatinine (Component) 5.0 mg/dL (0.6-1.3); Estimated Creatinine Clearance 12.8 mL/min (>60); Globulin 3.1 gm/dL (2.3-3.5); Glucose 98 mg/dL (74-106); Magnesium 2.2 mg/dL (1.6-2.6); Osmolality,Calculated 278 (275-295); Phosphorous 6.0 mg/dL (2.4-5.1); Potassium 4.1 mMol/L (3.4-5.1); Sodium 136 mMol/L (136-145); Total Protein 6.9 gm/dL (5.7-8.2); eGFR 11 See Note
[2025-04-06 07:30] LABS: Basophils # (Auto) 0.0 Thou/mm3 (0.0-0.2); Basophils % (Auto) 0 % (0-2.5); Eosinophils # (Auto) 0.2 Thou/mm3 (0.0-0.5); Eosinophils % (Auto) 2 % (0-10); Hematocrit 27.3 % (41.0-53.0); Hemoglobin 9.0 g/dL (13.5-16.0); Immature Granulocytes Auto 0.13 Thou/mm3 (0.00-0.00); Lymphocytes # (Auto) 0.8 Thou/mm3 (1.0-4.8); Lymphocytes % (Auto) 9 % (10-50); Mean Corpuscular HGB Conc 33.0 g/dl (31.0-37.0); Mean Corpuscular Hemoglobin 30.1 pg (25.0-35.0); Mean Corpuscular Volume 91 fL (80-100); Monocytes # (Auto) 1.0 Thou/mm3 (0.0-0.8); Monocytes % (Auto) 10 % (0-12); Neutrophils # (Auto) 7.3 Thou/mm3 (1.8-7.7); Neutrophils % (Auto) 77 % (37-80); Nucleated Red Blood Cell # 0.00 Thou/mm3 (0.00-0.00); Nucleated Red Blood Cell % 0 /100 WBC (0); Platelet Count 258 Thou/mm3 (140-440); RDW Standard Deviation 41.5 fL (35.1-43.9); Red Blood Count 2.99 Miln/mm3 (4.50-5.90); White Blood Count 9.5 Thou/mm3 (3.8-10.6)
--- NOTE | 2025-04-06 07:46 | PD.RESPRO ---
Documentation for date of: 04/06/25 Subjective Subjective Interval history: Overnight events: No acute events overnight. Dialysis paused briefly last night but resumed without complications Patient was seen and examined at bedside. AM vitals and labs reviewed. Kidney function improved after dialysis session yesterday. BUN 31, Cr 5.0, and GFR 11 this AM. The patient stated that he feels as if he is breathing better as well, but still has a bit of a headache. No other complaints at this time. Ins/Outs 1810/950. Review of systems otherwise negative except for what is mentioned above. Exam Vital Signs Temp Pulse Resp BP Pulse Ox O2 Del Method O2 Flow Rate 97.9 F 66 16 146/75 H 98 Nasal Cannula 3 04/06/25 04:00 04/06/25 07:31 04/06/25 06:39 04/06/25 04:00 04/06/25 06:39 04/06/25 04:00 04/06/25 06:39 Narrative Exam Physical Exam: General: Alert, no acute distress. Skin: Warm, dry, intact, no obvious rash. Head: Normocephalic, atraumatic. Eye: Normal conjunctiva, PERRL. Throat: Oral mucosa moist. No obvious lesions in oropharynx. Cardiovascular: Regular rate and rhythm, no murmur, +S1/S2. Respiratory: Lungs are clear to auscultation, respirations unlabored, no crackles, no wheezing. Gastrointestinal: Soft, nontender, non-distended. No guarding or rebound tenderness. Extremities: No edema, no cyanosis, no clubbing. 2+ radial pulse bilaterally, 2+ posterior tibial pulse bilaterally. Neuro: No focal deficits observed. Conversant, moving all extremities. No overt cerebellar signs/incoordination. Psychiatric: Cooperative, appropriate affect. Objective Labs 04/08/25 04:46 04/08/25 04:46 Labs: Laboratory Results - last 24 hr 04/05/25 04/06/25 05:36 06:20 PT 12.1 INR 1.1 APTT 35.5 Sodium 136 Potassium 4.1 Chloride 99 Carbon Dioxide 28.4 Anion Gap 9 BUN 31 H Creatinine 5.0 H* D Estim Creat Clear Calc 12.8 L eGFR 11 L* BUN/Creatinine Ratio 6 L Glucose 98 Calculated Osmolality 278 Calcium 9.1 Corrected Calcium 9.3 Phosphorus 6.0 H Magnesium 2.2 Total Bilirubin 0.4 AST 29 ALT 35 Alkaline Phosphatase 49 Total Protein 6.9 Albumin 3.8 Globulin 3.1 Albumin/Globulin Ratio 1.2 ABG Interpretation ABG results: 03/31/25 07:22 VBG pH 7.33 VBG pCO2 32 L VBG pO2 53 VBG Base Excess -8 L Quality Measures Quality Measures none Advance care planning discussed with:: patient Assessment & Plan Assessment Current Active Medications: Generic Name Dose Route Start Last Admin Trade Name Freq PRN Reason Stop Dose Admin Acetaminophen 650 mg 03/30/25 22:49 04/03/25 11:03 Acetaminophen 325 Mg Tablet PO 04/29/25 22:48 650 mg Q6H PRN Administration Fever >99.5 Acetaminophen 1,000 mg 03/31/25 01:43 04/05/25 17:02 Acetaminophen 500 Mg Tablet PO 04/30/25 01:40 1,000 mg Q6H PRN Administration PAIN SCALE 1-3 (mild Albuterol/Ipratropium 3 ml 03/30/25 22:49 Albuterol/Ipratropium (Duoneb) Rt Svetlana 3 Ml Nebu INH 04/29/25 22:48 Q2HR PRN SHORTNESS OF BREATH OR WHEEZE Albuterol/Ipratropium 3 ml 03/31/25 01:00 04/06/25 06:38 Albuterol/Ipratropium (Duoneb) Rt Svetlana 3 Ml Nebu INH 04/30/25 00:59 3 ml Q6HRRT SPARKLE Administration Amlodipine Besylate 10 mg 03/30/25 23:50 04/05/25 08:43 Amlodipine Besylate 5 Mg Tablet PO 04/29/25 23:49 Not Given QDAY SPARKLE Atorvastatin Calcium 40 mg 03/31/25 21:00 04/05/25 22:21 Atorvastatin Calcium 20 Mg Tablet PO 04/30/25 20:59 40 mg HS SPARKLE Administration Citric Acid/Sodium Citrate 30 ml 03/31/25 09:00 04/05/25 22:21 Citric Acid/Sodium Citr 15 Ml Udc (Bicitra) PO 04/30/25 08:59 30 ml BID SPARKLE Administration Enoxaparin Sodium 30 mg 03/31/25 09:00 04/05/25 08:44 Enoxaparin Sod Inj 30 Mg/0.3 Ml Syringe SC 04/14/25 08:59 Not Given QDAY SPARKLE Heparin Sodium (Porcine) 3,300 unit 04/05/25 18:50 04/05/25 22:02 Heparin Sod Inj 1000 Unit/Ml Vial 10 Ml INDWELLCAT 04/19/25 18:49 3,300 unit PRN PRN Administration DIALYSIS Ceftriaxone Sodium/Dextrose 1 gm in 50 mls @ 100 mls/hr 03/31/25 21:00 04/05/25 22:22 Rocephin/D5w 1gm Iv Premix IV 04/07/25 20:59 100 mls/hr HS SPARKLE Administration Albumin Human 25 gm in 100 mls @ 100 mls/min 04/01/25 10:03 Albuminar-25 Ivpb IV PRN PRN DIALYSIS Labetalol HCl 10 mg 04/01/25 07:56 04/05/25 04:27 Labetalol Inj 5 Mg/Ml Vial 20 Ml IVP 05/01/25 07:59 10 mg Q4HR PRN Administration SBP > 160mmHg Lisinopril 20 mg 03/30/25 23:50 03/31/25 08:46 Lisinopril 20 Mg Tablet PO 04/29/25 23:49 20 mg QDAY SPRAKLE Administration Ondansetron HCl 4 mg 03/30/25 22:49 04/01/25 14:36 Ondansetron Inj 2 Mg/Ml Inj 2 Ml IVP 04/29/25 22:48 4 mg Q6H PRN Administration NAUSEA OR VOMITING Protocol Pharmacy Consult 1 each 03/31/25 07:33 Pharmacy Renal Dose Adjustment 1 Ea XX 04/30/25 07:32 PRN PRN CONSULT Plan Mr. Brian is a 80 year old gentleman with a past medical history of HTN and HLD who presented with flu-like symptoms. Nephrology was consulted due to initial labs suggesting an acute kidney injury due to highly elevated Cr and significantly decreased eGFR. #Acute renal failure 2/2 acute tubular necrosis requiring new onset hemodialysis - Renal nuclear US suggests bilateral severely impaired renal function. - Hemodialysis performed 04/05/25, improving BUN, Cr, eGFR. New port placed in preparation for outpatient dialysis. - Repeat hemodialysis tomorrow - Sevelamer carbonate 800mg PO TID ordered to decrease phosphorus levels (04/06 AM labs phosphorus 6.0, ranged from 5.5-7.3 during hospitalization) - Nephrology will continue to monitor. Patient was discussed with the Nephrology attending, Dr. Quan. Thank you for allowing us to participate in the care of this patient. Ismael Yu, PGY-1 Attending Provider Attestation/Addendum Pt is seen and examined. labs and investigations are reviewed. Agree with assessment and plan and findings by resident. Marc Quan MD
[2025-04-06] MEDS: ENOXAPARIN SOD INJ 30 MG/0.3 ML SYRINGE SC (08:05)
--- NOTE | 2025-04-06 08:57 | PC.SS ---
SS spoke to Effie from [facility] who explained she will review patient's information. Effie is aware pt is ready for d/c. Dialysis chair time is pending.
[2025-04-06] MEDS: ACETAMINOPHEN 500 MG TABLET 1000 MG PO ×2 (09:24→20:44)
[2025-04-06] MEDS: CITRIC ACID/SODIUM CITR 15 ML UDC (BICITRA) 30 ML PO ×2 (09:24→20:43)
--- NOTE | 2025-04-06 11:27 | ESPR_ITS ---
Documentation for date of: 04/06/25 Subjective Subjective Interval history: Senior Attestation: No overnight events reported. Patient examined at bedside. Patient now status post: Tunneled cath pending dialysis chair. Patient's last dialysis session on 04/05/2025 (Mondays) with a net removal of -2 ultrafiltration. Last 24 hours 690 input/700 output/net -10. BUN 31 and creatinine function 5 and GFR of 11 overall improved renal function from yesterday. Patient started on Sevelamer by renal team given phosphate of 6.0. normocytic anemia stable. Patient was seen and examined at bedside. A.m. vitals and labs reviewed. Permanent dialysis catheter has been placed yesterday and hemodialysis has been resumed. BUN decreased to 31 from 46, Creatinine decreased to 5 from 7 and GFR increased to 11 from 7. Overall improving renal function. Patient noted that his body ache and headache has been improved since yesterday. Input/output net of -60 mL. Review of systems otherwise negative except for what is mentioned above. Exam Vital Signs Temp Pulse Resp BP Pulse Ox O2 Del Method O2 Flow Rate 97.8 F 83 22 H 149/77 H 92 L Nasal Cannula 3 04/06/25 08:00 04/06/25 08:04 04/06/25 08:00 04/06/25 08:04 04/06/25 08:00 04/06/25 08:00 04/06/25 08:00 Narrative Exam GENERAL: A&Ox3 and conversational. Awake, Not in acute distress NEURO: no focal neurological deficits HEENT: Atraumatic, Normocephalic. mucous membranes moist. Eyes open, symmetrical, & clear HEART: Normal Heart Sounds LUNGS: Clear to auscultation with no wheezing or crackles. ABDOMEN: soft, non-distended, non-tender, bowel sounds heard, no guarding or rebound tenderness SKIN: No Rash or ecchymoses EXTREMITIES: No edema, tenderness, able to move all 4 extremities, pedal pulses palpated Objective Labs 04/07/25 06:01 04/07/25 06:01 Labs: Laboratory Results - last 24 hr 04/06/25 06:20 WBC 9.5 RBC 2.99 L Hgb 9.0 L Hct 27.3 L MCV 91 MCH 30.1 MCHC 33.0 RDW Std Deviation 41.5 Plt Count 258 D Neut % (Auto) 77 Lymph % (Auto) 9 L [place] % (Auto) 10 Eos % (Auto) 2 Baso % (Auto) 0 Neut # (Auto) 7.3 Lymph # (Auto) 0.8 L [place] # (Auto) 1.0 H Eos # (Auto) 0.2 Baso # (Auto) 0.0 Immature Gran # (Auto) 0.13 H Absolute Nucleated RBC 0.00 Immature Gran % 1 H Nucleated RBC % 0 Sodium 136 Potassium 4.1 Chloride 99 Carbon Dioxide 28.4 Anion Gap 9 BUN 31 H Creatinine 5.0 H* D Estim Creat Clear Calc 12.8 L eGFR 11 L* BUN/Creatinine Ratio 6 L Glucose 98 Calculated Osmolality 278 Calcium 9.1 Corrected Calcium 9.3 Phosphorus 6.0 H Magnesium 2.2 Total Bilirubin 0.4 AST 29 ALT 35 Alkaline Phosphatase 49 Total Protein 6.9 Albumin 3.8 Globulin 3.1 Albumin/Globulin Ratio 1.2 ABG Interpretation ABG results: 03/31/25 07:22 VBG pH 7.33 VBG pCO2 32 L VBG pO2 53 VBG Base Excess -8 L Quality Measures Quality Measures none Advance care planning discussed with:: patient Assessment & Plan Assessment Current Active Medications: Generic Name Dose Route Start Last Admin Trade Name Emperatriz PRN Reason Stop Dose Admin Acetaminophen 650 mg 03/30/25 22:49 04/03/25 11:03 Acetaminophen 325 Mg Tablet PO 04/29/25 22:48 650 mg Q6H PRN Administration Fever >99.5 Acetaminophen 1,000 mg 03/31/25 01:43 04/06/25 09:24 Acetaminophen 500 Mg Tablet PO 04/30/25 01:40 1,000 mg Q6H PRN Administration PAIN SCALE 1-3 (mild Albuterol/Ipratropium 3 ml 03/30/25 22:49 Albuterol/Ipratropium (Duoneb) Rt Svetlana 3 Ml Nebu INH 04/29/25 22:48 Q2HR PRN SHORTNESS OF BREATH OR WHEEZE Albuterol/Ipratropium 3 ml 03/31/25 01:00 04/06/25 06:38 Albuterol/Ipratropium (Duoneb) Rt Svetlana 3 Ml Nebu INH 04/30/25 00:59 3 ml Q6HRRT SPARKLE Administration Amlodipine Besylate 10 mg 03/30/25 23:50 04/06/25 08:04 Amlodipine Besylate 5 Mg Tablet PO 04/29/25 23:49 10 mg QDAY SPARKLE Administration Atorvastatin Calcium 40 mg 03/31/25 21:00 04/05/25 22:21 Atorvastatin Calcium 20 Mg Tablet PO 04/30/25 20:59 40 mg HS SPARKLE Administration Citric Acid/Sodium Citrate 30 ml 03/31/25 09:00 04/06/25 09:24 Citric Acid/Sodium Citr 15 Ml Udc (Bicitra) PO 04/30/25 08:59 30 ml BID SPARKLE Administration Enoxaparin Sodium 30 mg 03/31/25 09:00 04/06/25 08:05 Enoxaparin Sod Inj 30 Mg/0.3 Ml Syringe SC 04/14/25 08:59 30 mg QDAY SPARKLE Administration Heparin Sodium (Porcine) 3,300 unit 04/05/25 18:50 04/05/25 22:02 Heparin Sod Inj 1000 Unit/Ml Vial 10 Ml INDWELLCAT 04/19/25 18:49 3,300 unit PRN PRN Administration DIALYSIS Ceftriaxone Sodium/Dextrose 1 gm in 50 mls @ 100 mls/hr 03/31/25 21:00 04/05/25 22:22 Rocephin/D5w 1gm Iv Premix IV 04/07/25 20:59 100 mls/hr HS SPARKLE Administration Albumin Human 25 gm in 100 mls @ 100 mls/min 04/01/25 10:03 Albuminar-25 Ivpb IV PRN PRN DIALYSIS Labetalol HCl 10 mg 04/01/25 07:56 04/05/25 04:27 Labetalol Inj 5 Mg/Ml Vial 20 Ml IVP 05/01/25 07:59 10 mg Q4HR PRN Administration SBP > 160mmHg Lisinopril 20 mg 03/30/25 23:50 03/31/25 08:46 Lisinopril 20 Mg Tablet PO 04/29/25 23:49 20 mg QDAY SPARKLE Administration Ondansetron HCl 4 mg 03/30/25 22:49 04/01/25 14:36 Ondansetron Inj 2 Mg/Ml Inj 2 Ml IVP 04/29/25 22:48 4 mg Q6H PRN Administration NAUSEA OR VOMITING Protocol Pharmacy Consult 1 each 03/31/25 07:33 Pharmacy Renal Dose Adjustment 1 Ea XX 04/30/25 07:32 PRN PRN CONSULT Plan Mr. Brian is a 80-year-old male with past medical history as stated above who presented to the ED due to flu-like symptoms with fever chills, nausea, vomiting, diarrhea. #Acute Renal Failure, s/p tunnel percath () #ATN requiring new onset hemodialysis #Anion gap metabolic acidosis - resolved -Pt was given IV fluids in the ED, and given 500cc NS bolus on floor -Baseline Creatinine (in 2022) was 1.0, on admission creatinine 6.8 -> 7.1, GFR 7 and BUN 73 -VBG (03/31/2025): pH 7.33, pCO2 32, PO 253, O2 saturation 87% -CT abdomen pelvis shows some perinephric stranding no hydronephrosis. However patient denies any flank pain, dysuria or urinary urgency. -Renal ultrasound shows minimal dilation of the renal calyces -Nuclear renal US showed bilateral severely impaired renal function (04/04/2025). 03/06/2025: Net UF -2 L Plan: -Pending dialysis chair time -Avoid nephrotoxins and renally dose medications -Sevelamer -Bicitra 30 mL BID -Continue strict intake and output measurements -Restarting hemodialysis due to worsening BUN, Cr, and eGFR after pausing a day of hemodialysis on 04/04/25. BUN, creatinine, and eGFR values improved after hemodialysis on 04/05/2025 #Acute hypoxic respiratory failure, secondary to, imporoved #Fluid overload in the setting of acute renal failure, versus, improving #Community-acquired pneumonia -Although patient does not have a white count, patient have flulike symptoms for the last 1 week, which can the patient has risk of superimposed bacterial infection -Chest x-ray was suspicious for early pneumonia left base and right upper lobe as well as congestion -Echo done on 03/31/2025 - EF 65% with dilated IVC and moderate bilateral atrial enlargement Plan: -Supplemental oxygen wean as tolerated -Patient was given Bumex on admission which is discontinued today as patient does not appear to be fluid overloaded anymore -Strict I's and O's -Azithromycin 500mg 03/31-04/03 -Ceftriaxone 1g 03/31- 04/07/2025 (7 day course of antibiotics) -Blood cultures no growth at 24 hrs #A-fib with RVR- self resolved On 04/03 : Overnight team reported patient went into A-fib for less than a minute with a heart rate of 175 however when EKG was obtained EKG showed normal sinus rhythm and patient was converted back to normal sinus rhythm without any interventions. [id number] score 3, HAS-BLED 3 Plan: Will continue to monitor telemetry Keep magnesium above 2 and potassium above 4 #Diarrhea-resolved -Patient states for the past 1 week he has had diarrhea but denies any changes to his diet. Denies any recent antibiotic use -Last diarrheal episode 7 PM on 03/30 Plan: -Stool cultures ordered -C. difficile PCR ordered- canceled due to pt had a formed stool -Contact precaution ordered- discontinued #Proctitis Proctitis noted on CT abdomen likely setting of gastritis vs inflammatory bowel disease. Patient recommended to follow up as outpatient with Dr. Martinez given overall complex medical conditions during this hospitalization. CT of abdomen/Pelvis shows rectal wall thickening Plan -Outpatient follow up with gastroenterology -Consulted GI Dr. Martinez, appreciate recommendations #Elevated troponin Elevated troponin likely in the setting of NSTEMI type II demand ischemia likely secondary to VIVEK, likely ATN. Denied chest pain or pressure. -downtrending 0.267 -> .249 , no need to further trend. EKG (04/03/2025): no st elevation noted, R. BBB QRS >120 Plan -continue to monitor tele box #Primary Hypertension #Hyperlipidemia - home lisinopril, statin and amlodipine Plan -HOLD HOME MEDICATION OF LISINOPRIL GIVEN VIVEK, LIKELY ATN. -Atorvastatin 40 mg PO HS. Health Maintenance Disposition: Telemetry DVT Prophylaxis: enoxaparin 30mg Qdaily GI Prophylaxis: not indicated Diet: low sodium diet Lines: Peripheral lines Code status: Full Assessment and plan discussed with my attending physician and Dr. Diego (PGY-2) Dr. Kong (PGY-1)- Internal medicine resident - The patient's plan was discussed with attending Dr. Yoel Diego MD PGY2 Internal Medicine Attending Provider Attestation/Addendum 80-year-old male with hypertension and hyperlipidemia who presented to the ER on 03/30/2025 with chief complaint of shortness of breath found to have acute hypoxic respiratory failure secondary to community-acquired pneumonia and fluid overload state. In addition, patient was also noted to have acute tubular necrosis requiring central line placement and hemodialysis. Currently, patient oxygenation significantly improving and currently on 2 L supplemental oxygen saturating 92% and continues to have worsening creatinine and per nephrology will require hemodialysis tomorrow. Of note, patient is able to produce urine and produce about 1.2 L and thus continue to watch kidney function closely.I reviewed above note and agree with findings and plans. I have also personally examined the patient with medicine team and went over assessment and plan with medical team including dietetic intern and resident physician.
[2025-04-06] MEDS: SEVELAMER CARBONATE 800 MG TABLET PO ×2 (12:09→17:31)
[2025-04-06] MEDS: EPOETIN ALFA-EPBX INJ 10,000 UNIT/ML VIAL (ESRD) 10000 UNIT SC (12:09)
--- NOTE | 2025-04-06 13:53 | PC.SS ---
SS spoke to Effie who explained Dr. Watkins and their market sales manager are out of office until Thursday. Dialysis chair time is unable to be provided until Thursday.
--- NOTE | 2025-04-06 20:42 | PC.RT ---
PT DID NOT TOLERATE O2 TITRATION TO 2l INCREASED BACK TO 3l NC SPO2 IMPROVED TO 93%, NO DISTRESS NOTED
--- NOTE | 2025-04-06 20:43 | ESPR_ITS ---
Documentation for date of: 04/06/25 Subjective Subjective Interval history: Patient evaluated clinically improving Exam Vital Signs Temp Pulse Resp BP Pulse Ox O2 Del Method O2 Flow Rate 97.7 F 71 16 140/68 H 98 Nasal Cannula 2 04/06/25 20:00 04/06/25 20:16 04/06/25 20:16 04/06/25 20:00 04/06/25 20:16 04/06/25 20:00 04/06/25 20:16 Objective Labs 04/06/25 06:20 04/06/25 06:20 Labs: Laboratory Results - last 24 hr 04/06/25 06:20 WBC 9.5 RBC 2.99 L Hgb 9.0 L Hct 27.3 L MCV 91 MCH 30.1 MCHC 33.0 RDW Std Deviation 41.5 Plt Count 258 D Neut % (Auto) 77 Lymph % (Auto) 9 L [place] % (Auto) 10 Eos % (Auto) 2 Baso % (Auto) 0 Neut # (Auto) 7.3 Lymph # (Auto) 0.8 L [place] # (Auto) 1.0 H Eos # (Auto) 0.2 Baso # (Auto) 0.0 Immature Gran # (Auto) 0.13 H Absolute Nucleated RBC 0.00 Immature Gran % 1 H Nucleated RBC % 0 Sodium 136 Potassium 4.1 Chloride 99 Carbon Dioxide 28.4 Anion Gap 9 BUN 31 H Creatinine 5.0 H* D Estim Creat Clear Calc 12.8 L eGFR 11 L* BUN/Creatinine Ratio 6 L Glucose 98 Calculated Osmolality 278 Calcium 9.1 Corrected Calcium 9.3 Phosphorus 6.0 H Magnesium 2.2 Total Bilirubin 0.4 AST 29 ALT 35 Alkaline Phosphatase 49 Total Protein 6.9 Albumin 3.8 Globulin 3.1 Albumin/Globulin Ratio 1.2 Impressions Impression: Proctitis Renal failure hemodialysis Continue current management ABG Interpretation ABG results: 03/31/25 07:22 VBG pH 7.33 VBG pCO2 32 L VBG pO2 53 VBG Base Excess -8 L Assessment & Plan A&P Narrative # Abnormal CT scan of the abdomen pelvis showing thickening of the rectal wall differential diagnoses include Proctitis due to underlying inflammatory bowel disease Unlikely infiltrating malignancy Possibly under distention of the rectum Suggestions Patient has multiple medical issues going on Let him improve Will consider fiberoptic colonoscopy prior to discharge Other medical problems include VIVEK pulmonary edema resolving Congestive heart failure improving Acute hypoxic respiratory failure improving Pneumonia Elevated troponin Thank you very much for the opportunity to participate in the care of this patient Time Spent With Patient Time: Total time spent is greater than 50% in coordination of care (as documented) at patient's floor/unit and/or counseling patient:
[2025-04-06] MEDS: ATORVASTATIN CALCIUM 20 MG TABLET 40 MG PO (20:44)
[2025-04-06] MEDS: cefTRIAXone/D5w 1gm IV premix 1 GM/50 ML BAG IV (20:44)
[2025-04-07] VITALS (27 sets, daily range): BP systolic 106–162; BP diastolic 59–92; PULSE 64–83; RESP 9–24; TEMP 36.1–36.9; O2SAT 93–100; BMI 31.6
[2025-04-07] MEDS: ALBUTEROL/IPRATROPIUM (Duoneb) RT SOL 3 ML NEBU INH ×3 (00:32→18:42)
[2025-04-07 06:38] LABS: Basophils # (Auto) 0.0 Thou/mm3 (0.0-0.2); Basophils % (Auto) 0 % (0-2.5); Eosinophils # (Auto) 0.3 Thou/mm3 (0.0-0.5); Eosinophils % (Auto) 4 % (0-10); Hematocrit 28.5 % (41.0-53.0); Hemoglobin 9.5 g/dL (13.5-16.0); Immature Granulocytes Auto 0.16 Thou/mm3 (0.00-0.00); Lymphocytes # (Auto) 1.0 Thou/mm3 (1.0-4.8); Lymphocytes % (Auto) 12 % (10-50); Mean Corpuscular HGB Conc 33.3 g/dl (31.0-37.0); Mean Corpuscular Hemoglobin 30.1 pg (25.0-35.0); Mean Corpuscular Volume 90 fL (80-100); Monocytes # (Auto) 0.9 Thou/mm3 (0.0-0.8); Monocytes % (Auto) 10 % (0-12); Neutrophils # (Auto) 6.3 Thou/mm3 (1.8-7.7); Neutrophils % (Auto) 72 % (37-80); Nucleated Red Blood Cell # 0.00 Thou/mm3 (0.00-0.00); Nucleated Red Blood Cell % 0 /100 WBC (0); Platelet Count 258 Thou/mm3 (140-440); RDW Standard Deviation 41.1 fL (35.1-43.9); Red Blood Count 3.16 Miln/mm3 (4.50-5.90); White Blood Count 8.8 Thou/mm3 (3.8-10.6)
[2025-04-07 07:00] LABS: Alanine Aminotransferase 40 U/L (10-49); Albumin, Serum 3.9 gm/dL (3.4-4.8); Albumin/Globulin Ratio 1.2 (1.2-2.2); Alkaline Phosphatase 50 U/L (46-116); Anion Gap 12 (7-16); Aspartate Amino Transferase 30 U/L (0-34); BUN/Creatinine Ratio 7 Ratio (12-20); Bilirubin,Total 0.2 mg/dL (0.3-1.2); Blood Urea Nitrogen 52 mg/dL (9-23); Calcium 9.5 mg/dL (8.3-10.6); Calcium (Corrected) 9.6 mg/dL (8.5-10.1); Carbon Dioxide 28.5 mMol/L (20.0-31.0); Chloride 98 mMol/L (98-107); Creatinine (Component) 7.1 mg/dL (0.6-1.3); Estimated Creatinine Clearance 9.1 mL/min (>60); Globulin 3.2 gm/dL (2.3-3.5); Glucose 100 mg/dL (74-106); Magnesium 2.4 mg/dL (1.6-2.6); Osmolality,Calculated 289 (275-295); Phosphorous 8.2 mg/dL (2.4-5.1); Potassium 3.9 mMol/L (3.4-5.1); Sodium 138 mMol/L (136-145); Total Protein 7.1 gm/dL (5.7-8.2); eGFR 7 See Note
[2025-04-07] MEDS: SEVELAMER CARBONATE 800 MG TABLET PO ×3 (07:49→17:27)
--- NOTE | 2025-04-07 08:46 | PD.RESPRO ---
Documentation for date of: 04/07/25 Subjective Subjective Interval history: Overnight events: No acute events overnight Patient was away from room at dialysis. AM vitals and labs reviewed. AM labs taken before morning dialysis session. BUN 52, Cr 7.2, eGFR 7. Phosphorus increased to 8.2. Ins/Outs = 1260/0. Patient completed 3 hours and 11 minutes of dialysis today, well tolerated. 2.2L of fluid removed with dialysis. Review of systems otherwise negative except for what is mentioned above. Exam Vital Signs Temp Pulse Resp BP Pulse Ox O2 Del Method O2 Flow Rate 97.4 F 75 16 141/75 H 95 Nasal Cannula 2 04/07/25 08:00 04/07/25 08:30 04/07/25 08:00 04/07/25 08:30 04/07/25 08:00 04/07/25 08:00 04/07/25 08:00 Objective Labs 04/08/25 04:46 04/08/25 04:46 Labs: Laboratory Results - last 24 hr 04/07/25 06:01 WBC 8.8 RBC 3.16 L Hgb 9.5 L Hct 28.5 L MCV 90 MCH 30.1 MCHC 33.3 RDW Std Deviation 41.1 Plt Count 258 Neut % (Auto) 72 Lymph % (Auto) 12 [place] % (Auto) 10 Eos % (Auto) 4 Baso % (Auto) 0 Neut # (Auto) 6.3 Lymph # (Auto) 1.0 [place] # (Auto) 0.9 H Eos # (Auto) 0.3 Baso # (Auto) 0.0 Immature Gran # (Auto) 0.16 H Absolute Nucleated RBC 0.00 Immature Gran % 2 H Nucleated RBC % 0 Sodium 138 Potassium 3.9 Chloride 98 Carbon Dioxide 28.5 Anion Gap 12 BUN 52 H Creatinine 7.1 H* D Estim Creat Clear Calc 9.1 L eGFR 7 L* BUN/Creatinine Ratio 7 L Glucose 100 Calculated Osmolality 289 Calcium 9.5 Corrected Calcium 9.6 Phosphorus 8.2 H Magnesium 2.4 Total Bilirubin 0.2 L AST 30 ALT 40 Alkaline Phosphatase 50 Total Protein 7.1 Albumin 3.9 Globulin 3.2 Albumin/Globulin Ratio 1.2 ABG Interpretation ABG results: 03/31/25 07:22 VBG pH 7.33 VBG pCO2 32 L VBG pO2 53 VBG Base Excess -8 L Quality Measures Quality Measures none Advance care planning discussed with:: patient Assessment & Plan Assessment Current Active Medications: Generic Name Dose Route Start Last Admin Trade Name Freq PRN Reason Stop Dose Admin Acetaminophen 650 mg 03/30/25 22:49 04/03/25 11:03 Acetaminophen 325 Mg Tablet PO 04/29/25 22:48 650 mg Q6H PRN Administration Fever >99.5 Acetaminophen 1,000 mg 03/31/25 01:43 04/06/25 20:44 Acetaminophen 500 Mg Tablet PO 04/30/25 01:40 1,000 mg Q6H PRN Administration PAIN SCALE 1-3 (mild Albuterol/Ipratropium 3 ml 03/30/25 22:49 Albuterol/Ipratropium (Duoneb) Rt Svetlana 3 Ml Nebu INH 04/29/25 22:48 Q2HR PRN SHORTNESS OF BREATH OR WHEEZE Albuterol/Ipratropium 3 ml 03/31/25 01:00 04/07/25 06:43 Albuterol/Ipratropium (Duoneb) Rt Svetlana 3 Ml Nebu INH 04/30/25 00:59 3 ml Q6HRRT SPARKLE Administration Amlodipine Besylate 10 mg 03/30/25 23:50 04/06/25 08:04 Amlodipine Besylate 5 Mg Tablet PO 04/29/25 23:49 10 mg QDAY SPARKLE Administration Atorvastatin Calcium 40 mg 03/31/25 21:00 04/06/25 20:44 Atorvastatin Calcium 20 Mg Tablet PO 04/30/25 20:59 40 mg HS SPARKLE Administration Citric Acid/Sodium Citrate 30 ml 03/31/25 09:00 04/06/25 20:43 Citric Acid/Sodium Citr 15 Ml Udc (Bicitra) PO 04/30/25 08:59 30 ml BID SPARKLE Administration Enoxaparin Sodium 30 mg 03/31/25 09:00 04/06/25 08:05 Enoxaparin Sod Inj 30 Mg/0.3 Ml Syringe SC 04/14/25 08:59 30 mg QDAY SPARKLE Administration Heparin Sodium (Porcine) 3,300 unit 04/05/25 18:50 04/05/25 22:02 Heparin Sod Inj 1000 Unit/Ml Vial 10 Ml INDWELLCAT 04/19/25 18:49 3,300 unit PRN PRN Administration DIALYSIS Ceftriaxone Sodium/Dextrose 1 gm in 50 mls @ 100 mls/hr 03/31/25 21:00 04/06/25 20:44 Rocephin/D5w 1gm Iv Premix IV 04/07/25 20:59 100 mls/hr HS SPARKLE Administration Albumin Human 25 gm in 100 mls @ 100 mls/min 04/01/25 10:03 Albuminar-25 Ivpb IV PRN PRN DIALYSIS Labetalol HCl 10 mg 04/01/25 07:56 04/05/25 04:27 Labetalol Inj 5 Mg/Ml Vial 20 Ml IVP 05/01/25 07:59 10 mg Q4HR PRN Administration SBP > 160mmHg Lisinopril 20 mg 03/30/25 23:50 03/31/25 08:46 Lisinopril 20 Mg Tablet PO 04/29/25 23:49 20 mg QDAY SPARKLE Administration Ondansetron HCl 4 mg 03/30/25 22:49 04/01/25 14:36 Ondansetron Inj 2 Mg/Ml Inj 2 Ml IVP 04/29/25 22:48 4 mg Q6H PRN Administration NAUSEA OR VOMITING Protocol Pharmacy Consult 1 each 03/31/25 07:33 Pharmacy Renal Dose Adjustment 1 Ea XX 04/30/25 07:32 PRN PRN CONSULT Sevelamer Carbonate 800 mg 04/06/25 12:00 04/07/25 07:49 Sevelamer Carbonate 800 Mg Tablet PO 05/06/25 11:59 800 mg TIDWM SPARKLE Administration Plan Mr. Brian is a 80 year old gentleman with a past medical history of HTN and HLD who presented with flu-like symptoms. Nephrology was consulted due to initial labs suggesting an acute kidney injury due to highly elevated Cr and significantly decreased eGFR. #Acute renal failure 2/2 acute tubular necrosis requiring new onset hemodialysis - Renal nuclear US suggests bilateral severely impaired renal function. - Hemodialysis performed 04/05/25, improving BUN, Cr, eGFR. New port placed in preparation for outpatient dialysis. - Repeated hemodialysis 04/07/25, will plan for next session Thursday04/10/25 for MWF schedule unless earlier urgent dialysis required. - Continue Sevelamer carbonate 800mg PO TID to decrease phosphorus levels (04/06 AM labs phosphorus 6.0, ranged from 5.5-7.3 during hospitalization) - Nephrology will continue to monitor. Patient was discussed with the Nephrology attending, Dr. Quan. Thank you for allowing us to participate in the care of this patient. Ismael Yu, PGY-1 Attending Provider Attestation/Addendum Pt is seen and examined. labs and investigations are reviewed. Agree with assessment and plan and findings by resident. Marc Quan MD
--- NOTE | 2025-04-07 09:56 | ESPR_ITS ---
<Statement entered by Jojo Diallo MD - 04/13/25 14:55> I reviewed above note and agree with findings and plans. I have also personally examined the patient with medicine team and went over assessment and plan with medical team including fall internship and resident physician. Documentation for date of: 04/07/25 Subjective Subjective Interval history: No acute events overnight. Patient seen and examined at bedside this AM. Received dialysis treatment this morning, 2.2L removed. This is the second dialysis treatment with new port placed on 04/05, in total has had 5 dialysis treatments, including today (04/01-04/03, 04/05, 04/07). Rapid response called, patient appeared to be breathing heavily and not responding to his name. No extremity weakness or deficits on exam. Patient was conversational and denied pain or issues during treatment. Likely dialysis disequilibrium syndrome. Labs and vitals were reviewed. No further complaints at this time. Review of systems otherwise negative except what is mentioned above. Exam Vital Signs Temp Pulse Resp BP Pulse Ox O2 Del Method O2 Flow Rate 97.4 F 68 16 139/73 H 95 Nasal Cannula 2 04/07/25 08:00 04/07/25 09:45 04/07/25 08:00 04/07/25 09:45 04/07/25 08:00 04/07/25 08:00 04/07/25 08:00 Narrative Exam Physical Exam General: Awake and in no acute distress. Conversational and non-toxic appearing. Permanent tunneled dialysis catheter in right upper chest. Port clean, dry, and intact. HEENT: Normocephalic, atraumatic, mucous membranes moist. Heart: Regular rate and rhythm, normal S1 and S2, no murmurs. Lungs: Clear to auscultation with no wheezing or crackles. Abdomen: Soft, nondistended, nontender, positive bowel sounds. No guarding or rebound tenderness. Neurologic: Alert and oriented x3, no gross neurological deficit, and patient able to move all 4 extremities. Extremities: No edema. Skin: No rash or ecchymoses. Objective Labs 04/07/25 06:01 04/07/25 06:01 Labs: Laboratory Results - last 24 hr 04/07/25 06:01 WBC 8.8 RBC 3.16 L Hgb 9.5 L Hct 28.5 L MCV 90 MCH 30.1 MCHC 33.3 RDW Std Deviation 41.1 Plt Count 258 Neut % (Auto) 72 Lymph % (Auto) 12 [place] % (Auto) 10 Eos % (Auto) 4 Baso % (Auto) 0 Neut # (Auto) 6.3 Lymph # (Auto) 1.0 [place] # (Auto) 0.9 H Eos # (Auto) 0.3 Baso # (Auto) 0.0 Immature Gran # (Auto) 0.16 H Absolute Nucleated RBC 0.00 Immature Gran % 2 H Nucleated RBC % 0 Sodium 138 Potassium 3.9 Chloride 98 Carbon Dioxide 28.5 Anion Gap 12 BUN 52 H Creatinine 7.1 H* D Estim Creat Clear Calc 9.1 L eGFR 7 L* BUN/Creatinine Ratio 7 L Glucose 100 Calculated Osmolality 289 Calcium 9.5 Corrected Calcium 9.6 Phosphorus 8.2 H Magnesium 2.4 Total Bilirubin 0.2 L AST 30 ALT 40 Alkaline Phosphatase 50 Total Protein 7.1 Albumin 3.9 Globulin 3.2 Albumin/Globulin Ratio 1.2 ABG Interpretation ABG results: 03/31/25 07:22 VBG pH 7.33 VBG pCO2 32 L VBG pO2 53 VBG Base Excess -8 L Quality Measures Quality Measures none Advance care planning discussed with:: patient Assessment & Plan Assessment Current Active Medications: Generic Name Dose Route Start Last Admin Trade Name Freq PRN Reason Stop Dose Admin Acetaminophen 650 mg 03/30/25 22:49 04/03/25 11:03 Acetaminophen 325 Mg Tablet PO 04/29/25 22:48 650 mg Q6H PRN Administration Fever >99.5 Acetaminophen 1,000 mg 03/31/25 01:43 04/06/25 20:44 Acetaminophen 500 Mg Tablet PO 04/30/25 01:40 1,000 mg Q6H PRN Administration PAIN SCALE 1-3 (mild Albuterol/Ipratropium 3 ml 03/30/25 22:49 Albuterol/Ipratropium (Duoneb) Rt Svetlana 3 Ml Nebu INH 04/29/25 22:48 Q2HR PRN SHORTNESS OF BREATH OR WHEEZE Albuterol/Ipratropium 3 ml 03/31/25 01:00 04/07/25 06:43 Albuterol/Ipratropium (Duoneb) Rt Svetlana 3 Ml Nebu INH 04/30/25 00:59 3 ml Q6HRRT SPARKLE Administration Amlodipine Besylate 10 mg 03/30/25 23:50 04/06/25 08:04 Amlodipine Besylate 5 Mg Tablet PO 04/29/25 23:49 10 mg QDAY SPARKLE Administration Atorvastatin Calcium 40 mg 03/31/25 21:00 04/06/25 20:44 Atorvastatin Calcium 20 Mg Tablet PO 04/30/25 20:59 40 mg HS SPARKLE Administration Citric Acid/Sodium Citrate 30 ml 03/31/25 09:00 04/06/25 20:43 Citric Acid/Sodium Citr 15 Ml Udc (Bicitra) PO 04/30/25 08:59 30 ml BID SPARKLE Administration Enoxaparin Sodium 30 mg 03/31/25 09:00 04/06/25 08:05 Enoxaparin Sod Inj 30 Mg/0.3 Ml Syringe SC 04/14/25 08:59 30 mg QDAY SPARKLE Administration Heparin Sodium (Porcine) 3,300 unit 04/05/25 18:50 04/05/25 22:02 Heparin Sod Inj 1000 Unit/Ml Vial 10 Ml INDWELLCAT 04/19/25 18:49 3,300 unit PRN PRN Administration DIALYSIS Ceftriaxone Sodium/Dextrose 1 gm in 50 mls @ 100 mls/hr 03/31/25 21:00 04/06/25 20:44 Rocephin/D5w 1gm Iv Premix IV 04/07/25 20:59 100 mls/hr HS SPARKLE Administration Albumin Human 25 gm in 100 mls @ 100 mls/min 04/01/25 10:03 Albuminar-25 Ivpb IV PRN PRN DIALYSIS Labetalol HCl 10 mg 04/01/25 07:56 04/05/25 04:27 Labetalol Inj 5 Mg/Ml Vial 20 Ml IVP 05/01/25 07:59 10 mg Q4HR PRN Administration SBP > 160mmHg Lisinopril 20 mg 03/30/25 23:50 03/31/25 08:46 Lisinopril 20 Mg Tablet PO 04/29/25 23:49 20 mg QDAY SPARKLE Administration Ondansetron HCl 4 mg 03/30/25 22:49 04/01/25 14:36 Ondansetron Inj 2 Mg/Ml Inj 2 Ml IVP 04/29/25 22:48 4 mg Q6H PRN Administration NAUSEA OR VOMITING Protocol Pharmacy Consult 1 each 03/31/25 07:33 Pharmacy Renal Dose Adjustment 1 Ea XX 04/30/25 07:32 PRN PRN CONSULT Sevelamer Carbonate 800 mg 04/06/25 12:00 04/07/25 07:49 Sevelamer Carbonate 800 Mg Tablet PO 05/06/25 11:59 800 mg TIDWM SPARKLE Administration Plan Patient is a 80-year-old male with past medical history of hypertension and hyperlipidemia who presented to the ED on 03/30 with flu-like symptoms with fever chills, nausea, vomiting, diarrhea. Admitted for acute hypoxic respiratory failure secondary to CAP and fluid overload, later developed acute tubular necrosis and end stage renal disease. Now requiring central line placement and hemodialysis, pending hemodialysis chair for outpatient. #Acute Renal Failure #ATN #On hemodialysis #Anion gap metabolic acidosis - resolved - S/p IV fluids in the ED and 500cc NS bolus -Creatinine 6.8, continues to increase, baseline (in 2022) was 1.0. On admission, BUN elevated and GFR 7. -VBG (03/31/2025): pH 7.33, pCO2 32, PO 253, O2 saturation 87% -CT abdomen pelvis shows some perinephric stranding no hydronephrosis. However patient denies any flank pain, dysuria or urinary urgency. -Renal ultrasound shows minimal dilation of the renal calyces -Nuclear renal US showed bilateral severely impaired renal function (04/04/2025). -S/p new tunnel cath placement on 04/05 Plan: -Continue hemodialysis - second time with new port, fifth time in total -Pending dialysis chair time -Avoid nephrotoxins and renally dose medications -Continue Sevelamer -Continue Bicitra 30 mL BID -Strict I&O's -Hold home lisinopril #Acute hypoxic respiratory failure, secondary to-- #Fluid overload in the setting of acute renal failure, versus #Community-acquired pneumonia -Flu-like symptoms for the last 1 week but no elevated WBC; however patient still at risk for superimposed bacterial infection -CXR suspicious for early pneumonia left base and right upper lobe as well as congestion -Echo 03/31/2025 - EF 65% with dilated IVC and moderate bilateral atrial enlargement -S/p Azithromycin 500mg 03/31-04/03 and ceftriaxone 1g 03/31- 04/07/2025 -Blood cultures negative Plan: -Wean supplemental oxygen as tolerated -Continue to hold Bumex as patient does not appear to be fluid overloaded -Strict I's and O's #A-fib with RVR - resolved On 04/03 : Overnight team reported patient went into A-fib for less than a minute with a heart rate of 175 however when EKG was obtained EKG showed normal sinus rhythm and patient was converted back to normal sinus rhythm without any interventions. [id number] score 3, HAS-BLED 3 Plan: -Will continue to monitor telemetry -Mg>2 and K>4 #Diarrhea-resolved -Patient states for the past 1 week he has had diarrhea but denies any changes to his diet. Denies any recent antibiotic use -Last diarrheal episode 7 PM on 03/30 -Stool cultures were ordered but canceled as patient had formed stool, no precautions required #Elevated troponin - resolved Elevated troponin likely in the setting of NSTEMI type II demand ischemia likely secondary to VIVEK, likely ATN. Denied chest pain or pressure. Downtrended. EKG (04/03/2025): no st elevation noted, R. BBB QRS >120 #Proctitis Proctitis noted on CT abdomen likely setting of gastritis vs inflammatory bowel disease. Patient recommended to follow up as outpatient with Dr. Martinez given overall complex medical conditions during this hospitalization. CT of abdomen/Pelvis shows rectal wall thickening Plan -Outpatient follow up with gastroenterology -Consulted GI Dr. Martinez, appreciate recommendations #Primary Hypertension #Hyperlipidemia Take lisinopril, statin and amlodipine at home. Plan -Hold Lisinoprol given ESRD -Continue home amlodipine -Continue Atorvastatin 40 mg PO Health Maintenance Disposition: Pending dialysis chair DVT Prophylaxis: enoxaparin 30mg Qdaily GI Prophylaxis: not indicated Diet: low sodium diet Lines: Peripheral lines Code status: Full Patient plan of care was discussed with the attending physician, Dr. Diallo, Araceli Orellana, PGY-1
[2025-04-07] MEDS: HEPARIN SOD INJ 1000 UNIT/ML VIAL 10 ML 3300 UNIT INDWELLCAT (11:35)
[2025-04-07] MEDS: ENOXAPARIN SOD INJ 30 MG/0.3 ML SYRINGE SC (11:57)
[2025-04-07] MEDS: ACETAMINOPHEN 500 MG TABLET 1000 MG PO ×2 (14:02→20:12)
--- NOTE | 2025-04-07 14:17 | PD.IMPROG ---
Documentation for date of: 04/07/25 Subjective Subjective Interval history: No signs of bleeding Hemoglobin hematocrit 9.5 and 28.5 Exam Vital Signs Temp Pulse Resp BP Pulse Ox O2 Del Method O2 Flow Rate 97.4 F 71 9 L 136/92 H 96 Nasal Cannula 3 04/07/25 12:00 04/07/25 13:02 04/07/25 13:02 04/07/25 12:00 04/07/25 13:02 04/07/25 12:00 04/07/25 13:02 Objective Labs 04/07/25 06:01 04/07/25 06:01 Labs: Laboratory Results - last 24 hr 04/07/25 06:01 WBC 8.8 RBC 3.16 L Hgb 9.5 L Hct 28.5 L MCV 90 MCH 30.1 MCHC 33.3 RDW Std Deviation 41.1 Plt Count 258 Neut % (Auto) 72 Lymph % (Auto) 12 [place] % (Auto) 10 Eos % (Auto) 4 Baso % (Auto) 0 Neut # (Auto) 6.3 Lymph # (Auto) 1.0 [place] # (Auto) 0.9 H Eos # (Auto) 0.3 Baso # (Auto) 0.0 Immature Gran # (Auto) 0.16 H Absolute Nucleated RBC 0.00 Immature Gran % 2 H Nucleated RBC % 0 Sodium 138 Potassium 3.9 Chloride 98 Carbon Dioxide 28.5 Anion Gap 12 BUN 52 H Creatinine 7.1 H* D Estim Creat Clear Calc 9.1 L eGFR 7 L* BUN/Creatinine Ratio 7 L Glucose 100 Calculated Osmolality 289 Calcium 9.5 Corrected Calcium 9.6 Phosphorus 8.2 H Magnesium 2.4 Total Bilirubin 0.2 L AST 30 ALT 40 Alkaline Phosphatase 50 Total Protein 7.1 Albumin 3.9 Globulin 3.2 Albumin/Globulin Ratio 1.2 Impressions Impression: Proctitis Continue current management ABG Interpretation ABG results: 03/31/25 07:22 VBG pH 7.33 VBG pCO2 32 L VBG pO2 53 VBG Base Excess -8 L Assessment & Plan A&P Narrative # Abnormal CT scan of the abdomen pelvis showing thickening of the rectal wall differential diagnoses include Proctitis due to underlying inflammatory bowel disease Unlikely infiltrating malignancy Possibly under distention of the rectum Suggestions Patient has multiple medical issues going on Let him improve Will consider fiberoptic colonoscopy prior to discharge Other medical problems include VIVEK pulmonary edema resolving Congestive heart failure improving Acute hypoxic respiratory failure improving Pneumonia Elevated troponin Thank you very much for the opportunity to participate in the care of this patient Time Spent With Patient Time: Total time spent is greater than 50% in coordination of care (as documented) at patient's floor/unit and/or counseling patient:
[2025-04-07] MEDS: ATORVASTATIN CALCIUM 20 MG TABLET 40 MG PO (20:12)
[2025-04-07] MEDS: CITRIC ACID/SODIUM CITR 15 ML UDC (BICITRA) 30 ML PO (20:12)
[2025-04-08] VITALS (14 sets, daily range): BP systolic 118–146; BP diastolic 60–72; PULSE 64–84; RESP 11–20; TEMP 36–36.7; O2SAT 92–100; BMI 31.6
[2025-04-08] MEDS: ALBUTEROL/IPRATROPIUM (Duoneb) RT SOL 3 ML NEBU INH ×5 (01:36→18:30)
[2025-04-08 05:44] LABS: Basophils # (Auto) 0.0 Thou/mm3 (0.0-0.2); Basophils % (Auto) 0 % (0-2.5); Eosinophils # (Auto) 0.2 Thou/mm3 (0.0-0.5); Eosinophils % (Auto) 3 % (0-10); Hematocrit 28.9 % (41.0-53.0); Hemoglobin 9.4 g/dL (13.5-16.0); Immature Granulocytes Auto 0.26 Thou/mm3 (0.00-0.00); Lymphocytes # (Auto) 1.2 Thou/mm3 (1.0-4.8); Lymphocytes % (Auto) 12 % (10-50); Mean Corpuscular HGB Conc 32.5 g/dl (31.0-37.0); Mean Corpuscular Hemoglobin 30.3 pg (25.0-35.0); Mean Corpuscular Volume 93 fL (80-100); Monocytes # (Auto) 1.0 Thou/mm3 (0.0-0.8); Monocytes % (Auto) 11 % (0-12); Neutrophils # (Auto) 6.9 Thou/mm3 (1.8-7.7); Neutrophils % (Auto) 72 % (37-80); Nucleated Red Blood Cell # 0.00 Thou/mm3 (0.00-0.00); Nucleated Red Blood Cell % 0 /100 WBC (0); Platelet Count 273 Thou/mm3 (140-440); RDW Standard Deviation 41.9 fL (35.1-43.9); Red Blood Count 3.10 Miln/mm3 (4.50-5.90); White Blood Count 9.6 Thou/mm3 (3.8-10.6)
[2025-04-08 06:27] LABS: Alanine Aminotransferase 34 U/L (10-49); Albumin, Serum 4.0 gm/dL (3.4-4.8); Albumin/Globulin Ratio 1.3 (1.2-2.2); Alkaline Phosphatase 52 U/L (46-116); Anion Gap 17 (7-16); Aspartate Amino Transferase 24 U/L (0-34); BUN/Creatinine Ratio 7 Ratio (12-20); Bilirubin,Total 0.2 mg/dL (0.3-1.2); Blood Urea Nitrogen 40 mg/dL (9-23); Calcium 9.4 mg/dL (8.3-10.6); Calcium (Corrected) 9.4 mg/dL (8.5-10.1); Carbon Dioxide 26.8 mMol/L (20.0-31.0); Chloride 95 mMol/L (98-107); Creatinine (Component) 5.9 mg/dL (0.6-1.3); Estimated Creatinine Clearance 10.9 mL/min (>60); Globulin 3.2 gm/dL (2.3-3.5); Glucose 96 mg/dL (74-106); Magnesium 2.2 mg/dL (1.6-2.6); Osmolality,Calculated 287 (275-295); Phosphorous 7.5 mg/dL (2.4-5.1); Potassium 3.7 mMol/L (3.4-5.1); Sodium 139 mMol/L (136-145); Total Protein 7.2 gm/dL (5.7-8.2); eGFR 9 See Note
[2025-04-08] MEDS: SEVELAMER CARBONATE 800 MG TABLET PO ×3 (07:39→17:15)
[2025-04-08] MEDS: CITRIC ACID/SODIUM CITR 15 ML UDC (BICITRA) 30 ML PO ×2 (08:26→20:50)
[2025-04-08] MEDS: ENOXAPARIN SOD INJ 30 MG/0.3 ML SYRINGE SC (08:26)
--- NOTE | 2025-04-08 12:34 | ESPR_ITS ---
<Statement entered by Jojo Diallo MD - 04/13/25 14:55> I reviewed above note and agree with findings and plans. I have also personally examined the patient with medicine team and went over assessment and plan with medical team including landscape maintenance internship and resident physician. Documentation for date of: 04/08/25 Subjective Subjective Interval history: Patient was seen and examined at bedside. A.m. vitals and labs reviewed. On the previous day patient experienced an episode of heavy breathing which triggered a rapid response likely due to dialysis disequilibrium syndrome. Today patient looks oriented and alert. Still has generalized body ache and headache denies chest pain shortness of breath fever and chills no extremity weakness or deficits. No further complaints at this time. The patient needs outpatient hemodialysis chair set up prior to discharge. Review of systems otherwise negative except what is mentioned above. Exam Vital Signs Temp Pulse Resp BP Pulse Ox O2 Del Method O2 Flow Rate 97.9 F 68 18 146/72 H 99 Nasal Cannula 2 04/08/25 08:00 04/08/25 12:00 04/08/25 08:00 04/08/25 08:26 04/08/25 08:00 04/08/25 08:00 04/08/25 08:00 Narrative Exam General: Awake and in no acute distress. Conversational and non-toxic appearing. Permanent tunneled dialysis catheter in right upper chest. Port clean, dry, and intact. HEENT: Normocephalic, atraumatic, mucous membranes moist. Heart: Regular rate and rhythm, normal S1 and S2, no murmurs. Lungs: Clear to auscultation with no wheezing or crackles. Abdomen: Soft, nondistended, nontender, positive bowel sounds. No guarding or rebound tenderness. Neurologic: Alert and oriented x3, no gross neurological deficit, and patient able to move all 4 extremities. Extremities: No edema. Skin: No rash or ecchymoses. Objective Labs 04/09/25 05:21 04/09/25 05:21 Labs: Laboratory Results - last 24 hr 04/08/25 04:46 WBC 9.6 RBC 3.10 L Hgb 9.4 L Hct 28.9 L MCV 93 MCH 30.3 MCHC 32.5 RDW Std Deviation 41.9 Plt Count 273 Neut % (Auto) 72 Lymph % (Auto) 12 [place] % (Auto) 11 Eos % (Auto) 3 Baso % (Auto) 0 Neut # (Auto) 6.9 Lymph # (Auto) 1.2 [place] # (Auto) 1.0 H Eos # (Auto) 0.2 Baso # (Auto) 0.0 Immature Gran # (Auto) 0.26 H Absolute Nucleated RBC 0.00 Immature Gran % 3 H Nucleated RBC % 0 Sodium 139 Potassium 3.7 Chloride 95 L Carbon Dioxide 26.8 Anion Gap 17 H BUN 40 H Creatinine 5.9 H* D Estim Creat Clear Calc 10.9 L eGFR 9 L* BUN/Creatinine Ratio 7 L Glucose 96 Calculated Osmolality 287 Calcium 9.4 Corrected Calcium 9.4 Phosphorus 7.5 H Magnesium 2.2 Total Bilirubin 0.2 L AST 24 ALT 34 Alkaline Phosphatase 52 Total Protein 7.2 Albumin 4.0 Globulin 3.2 Albumin/Globulin Ratio 1.3 ABG Interpretation ABG results: 03/31/25 07:22 VBG pH 7.33 VBG pCO2 32 L VBG pO2 53 VBG Base Excess -8 L Quality Measures Quality Measures none Advance care planning discussed with:: patient Assessment & Plan Assessment Current Active Medications: Generic Name Dose Route Start Last Admin Trade Name Freq PRN Reason Stop Dose Admin Acetaminophen 650 mg 03/30/25 22:49 04/03/25 11:03 Acetaminophen 325 Mg Tablet PO 04/29/25 22:48 650 mg Q6H PRN Administration Fever >99.5 Acetaminophen 1,000 mg 03/31/25 01:43 04/07/25 20:12 Acetaminophen 500 Mg Tablet PO 04/30/25 01:40 1,000 mg Q6H PRN Administration PAIN SCALE 1-3 (mild Albuterol/Ipratropium 3 ml 03/30/25 22:49 Albuterol/Ipratropium (Duoneb) Rt Svetlana 3 Ml Nebu INH 04/29/25 22:48 Q2HR PRN SHORTNESS OF BREATH OR WHEEZE Albuterol/Ipratropium 3 ml 03/31/25 01:00 04/08/25 06:48 Albuterol/Ipratropium (Duoneb) Rt Svetlana 3 Ml Nebu INH 04/30/25 00:59 3 ml Q6HRRT SPARKLE Administration Amlodipine Besylate 10 mg 03/30/25 23:50 04/08/25 08:26 Amlodipine Besylate 5 Mg Tablet PO 04/29/25 23:49 10 mg QDAY SPARKLE Administration Apixaban 2.5 mg 04/08/25 21:00 Apixaban 2.5 Mg Tablet PO 05/08/25 20:59 BID SPARKLE Atorvastatin Calcium 40 mg 03/31/25 21:00 04/07/25 20:12 Atorvastatin Calcium 20 Mg Tablet PO 04/30/25 20:59 40 mg HS SPARKLE Administration Citric Acid/Sodium Citrate 30 ml 03/31/25 09:00 04/08/25 08:26 Citric Acid/Sodium Citr 15 Ml Udc (Bicitra) PO 04/30/25 08:59 30 ml BID SPARKLE Administration Heparin Sodium (Porcine) 3,300 unit 04/05/25 18:50 04/07/25 11:35 Heparin Sod Inj 1000 Unit/Ml Vial 10 Ml INDWELLCAT 04/19/25 18:49 3,300 unit PRN PRN Administration DIALYSIS Albumin Human 25 gm in 100 mls @ 100 mls/min 04/01/25 10:03 Albuminar-25 Ivpb IV PRN PRN DIALYSIS Labetalol HCl 10 mg 04/01/25 07:56 04/05/25 04:27 Labetalol Inj 5 Mg/Ml Vial 20 Ml IVP 05/01/25 07:59 10 mg Q4HR PRN Administration SBP > 160mmHg Lisinopril 20 mg 03/30/25 23:50 03/31/25 08:46 Lisinopril 20 Mg Tablet PO 04/29/25 23:49 20 mg QDAY SPARKLE Administration Ondansetron HCl 4 mg 03/30/25 22:49 04/01/25 14:36 Ondansetron Inj 2 Mg/Ml Inj 2 Ml IVP 04/29/25 22:48 4 mg Q6H PRN Administration NAUSEA OR VOMITING Protocol Pharmacy Consult 1 each 03/31/25 07:33 Pharmacy Renal Dose Adjustment 1 Ea XX 04/30/25 07:32 PRN PRN CONSULT Sevelamer Carbonate 800 mg 04/06/25 12:00 04/08/25 12:24 Sevelamer Carbonate 800 Mg Tablet PO 05/06/25 11:59 800 mg TIDWM SPARKLE Administration Plan Patient is a 80-year-old male with past medical history of hypertension and hyperlipidemia who presented to the ED on 03/30 with flu-like symptoms with fever chills, nausea, vomiting, diarrhea. Admitted for acute hypoxic respiratory failure secondary to CAP and fluid overload, later developed acute tubular necrosis and end stage renal disease. Now requiring central line placement and hemodialysis, pending hemodialysis chair for outpatient. #Acute Renal Failure #ATN #On hemodialysis #Anion gap metabolic acidosis - resolved - S/p IV fluids in the ED and 500cc NS bolus -Creatinine 6.8, continues to increase, baseline (in 2022) was 1.0. On admission, BUN elevated and GFR 7. -VBG (03/31/2025): pH 7.33, pCO2 32, PO 253, O2 saturation 87% -CT abdomen pelvis shows some perinephric stranding no hydronephrosis. However patient denies any flank pain, dysuria or urinary urgency. -Renal ultrasound shows minimal dilation of the renal calyces -Nuclear renal US showed bilateral severely impaired renal function (04/04/2025). -S/p new tunnel cath placement on 04/05 Plan: -Continue hemodialysis - second time with new port, fifth time in total -Pending dialysis chair time -Avoid nephrotoxins and renally dose medications -Continue Sevelamer -Continue Bicitra 30 mL BID -Strict I&O's -Hold home lisinopril #Acute hypoxic respiratory failure, secondary to-- #Fluid overload in the setting of acute renal failure, versus #Community-acquired pneumonia -Flu-like symptoms for the last 1 week but no elevated WBC; however patient still at risk for superimposed bacterial infection -CXR suspicious for early pneumonia left base and right upper lobe as well as congestion -Echo 03/31/2025 - EF 65% with dilated IVC and moderate bilateral atrial enlargement -S/p Azithromycin 500mg 03/31-04/03 and ceftriaxone 1g 03/31- 04/07/2025 -Blood cultures negative Plan: -Wean supplemental oxygen as tolerated -Continue to hold Bumex as patient does not appear to be fluid overloaded -Strict I's and O's #Paroxysmal Afib - resolved On 04/03 : Overnight team reported patient went into A-fib for less than a minute with a heart rate of 175 however when EKG was obtained EKG showed normal sinus rhythm and patient was converted back to normal sinus rhythm without any interventions. [id number] score 3, HAS-BLED 3 Plan: -Will continue to monitor telemetry -Mg>2 and K>4 -Eliquis 2.5 mg p.o. twice daily #Diarrhea-resolved -Patient states for the past 1 week he has had diarrhea but denies any changes to his diet. Denies any recent antibiotic use -Last diarrheal episode 7 PM on 03/30 -Stool cultures were ordered but canceled as patient had formed stool, no precautions required #Elevated troponin - resolved Elevated troponin likely in the setting of NSTEMI type II demand ischemia likely secondary to VIVEK, likely ATN. Denied chest pain or pressure. Downtrended. EKG (04/03/2025): no st elevation noted, R. BBB QRS >120 #Proctitis Proctitis noted on CT abdomen likely setting of gastritis vs inflammatory bowel disease. Patient recommended to follow up as outpatient with Dr. Martinez given overall complex medical conditions during this hospitalization. CT of abdomen/Pelvis shows rectal wall thickening Plan -Outpatient follow up with gastroenterology -Consulted GI Dr. Martinez, appreciate recommendations #Primary Hypertension #Hyperlipidemia Take lisinopril, statin and amlodipine at home. Plan -Hold Lisinoprol given ESRD -Continue home amlodipine -Continue Atorvastatin 40 mg PO Health Maintenance Disposition: Pending dialysis chair DVT Prophylaxis: enoxaparin 30mg Qdaily GI Prophylaxis: not indicated Diet: low sodium diet Lines: Peripheral lines Code status: Full Assessment and plan discussed with my attending physician Dr. Yoel Kong (PGY-1)- Internal medicine resident
--- NOTE | 2025-04-08 17:31 | ESPR_ITS ---
Documentation for date of: 04/08/25 Subjective Subjective Interval history: Rapid response called in due to shortness of breath Resolved quickly Exam Vital Signs Temp Pulse Resp BP Pulse Ox O2 Del Method O2 Flow Rate 98.0 F 79 16 130/67 98 Nasal Cannula 2 04/08/25 16:00 04/08/25 16:00 04/08/25 16:00 04/08/25 16:00 04/08/25 16:00 04/08/25 16:00 04/08/25 16:00 Objective Labs 04/08/25 04:46 04/08/25 04:46 Labs: Laboratory Results - last 24 hr 04/08/25 04:46 WBC 9.6 RBC 3.10 L Hgb 9.4 L Hct 28.9 L MCV 93 MCH 30.3 MCHC 32.5 RDW Std Deviation 41.9 Plt Count 273 Neut % (Auto) 72 Lymph % (Auto) 12 [place] % (Auto) 11 Eos % (Auto) 3 Baso % (Auto) 0 Neut # (Auto) 6.9 Lymph # (Auto) 1.2 [place] # (Auto) 1.0 H Eos # (Auto) 0.2 Baso # (Auto) 0.0 Immature Gran # (Auto) 0.26 H Absolute Nucleated RBC 0.00 Immature Gran % 3 H Nucleated RBC % 0 Sodium 139 Potassium 3.7 Chloride 95 L Carbon Dioxide 26.8 Anion Gap 17 H BUN 40 H Creatinine 5.9 H* D Estim Creat Clear Calc 10.9 L eGFR 9 L* BUN/Creatinine Ratio 7 L Glucose 96 Calculated Osmolality 287 Calcium 9.4 Corrected Calcium 9.4 Phosphorus 7.5 H Magnesium 2.2 Total Bilirubin 0.2 L AST 24 ALT 34 Alkaline Phosphatase 52 Total Protein 7.2 Albumin 4.0 Globulin 3.2 Albumin/Globulin Ratio 1.3 Impressions Impression: Rectal wall thickening Proctitis as suggested by the CT scan abdomen and pelvis Continue current management Outpatient colonoscopy has been discussed with the patient and the family ABG Interpretation ABG results: 03/31/25 07:22 VBG pH 7.33 VBG pCO2 32 L VBG pO2 53 VBG Base Excess -8 L Assessment & Plan A&P Narrative # Abnormal CT scan of the abdomen pelvis showing thickening of the rectal wall differential diagnoses include Proctitis due to underlying inflammatory bowel disease Unlikely infiltrating malignancy Possibly under distention of the rectum Suggestions Patient has multiple medical issues going on Let him improve Will consider fiberoptic colonoscopy prior to discharge Other medical problems include VIVEK pulmonary edema resolving Congestive heart failure improving Acute hypoxic respiratory failure improving Pneumonia Elevated troponin Thank you very much for the opportunity to participate in the care of this patient Time Spent With Patient Time: Total time spent is greater than 50% in coordination of care (as documented) at patient's floor/unit and/or counseling patient:
[2025-04-08] MEDS: ATORVASTATIN CALCIUM 20 MG TABLET 40 MG PO (20:50)
[2025-04-08] MEDS: APIXABAN 2.5 MG TABLET PO (20:50)
[2025-04-09] VITALS (13 sets, daily range): BP systolic 129–146; BP diastolic 60–74; PULSE 66–90; RESP 10–23; TEMP 36.2–36.9; O2SAT 92–100
[2025-04-09] MEDS: ALBUTEROL/IPRATROPIUM (Duoneb) RT SOL 3 ML NEBU INH ×4 (01:37→18:05)
[2025-04-09 05:55] LABS: Basophils # (Auto) 0.0 Thou/mm3 (0.0-0.2); Basophils % (Auto) 0 % (0-2.5); Eosinophils # (Auto) 0.2 Thou/mm3 (0.0-0.5); Eosinophils % (Auto) 2 % (0-10); Hematocrit 28.4 % (41.0-53.0); Hemoglobin 9.5 g/dL (13.5-16.0); Immature Granulocytes Auto 0.16 Thou/mm3 (0.00-0.00); Lymphocytes # (Auto) 1.2 Thou/mm3 (1.0-4.8); Lymphocytes % (Auto) 11 % (10-50); Mean Corpuscular HGB Conc 33.5 g/dl (31.0-37.0); Mean Corpuscular Hemoglobin 29.9 pg (25.0-35.0); Mean Corpuscular Volume 89 fL (80-100); Monocytes # (Auto) 1.1 Thou/mm3 (0.0-0.8); Monocytes % (Auto) 10 % (0-12); Neutrophils # (Auto) 8.0 Thou/mm3 (1.8-7.7); Neutrophils % (Auto) 75 % (37-80); Nucleated Red Blood Cell # 0.00 Thou/mm3 (0.00-0.00); Nucleated Red Blood Cell % 0 /100 WBC (0); Platelet Count 303 Thou/mm3 (140-440); RDW Standard Deviation 40.0 fL (35.1-43.9); Red Blood Count 3.18 Miln/mm3 (4.50-5.90); White Blood Count 10.7 Thou/mm3 (3.8-10.6)
[2025-04-09 06:18] LABS: Alanine Aminotransferase 29 U/L (10-49); Albumin, Serum 4.1 gm/dL (3.4-4.8); Albumin/Globulin Ratio 1.3 (1.2-2.2); Alkaline Phosphatase 55 U/L (46-116); Anion Gap 15 (7-16); Aspartate Amino Transferase 20 U/L (0-34); BUN/Creatinine Ratio 8 Ratio (12-20); Bilirubin,Total 0.3 mg/dL (0.3-1.2); Blood Urea Nitrogen 57 mg/dL (9-23); Calcium 9.6 mg/dL (8.3-10.6); Calcium (Corrected) 9.6 mg/dL (8.5-10.1); Carbon Dioxide 27.6 mMol/L (20.0-31.0); Chloride 95 mMol/L (98-107); Creatinine (Component) 7.4 mg/dL (0.6-1.3); Estimated Creatinine Clearance 8.6 mL/min (>60); Globulin 3.1 gm/dL (2.3-3.5); Glucose 106 mg/dL (74-106); Magnesium 2.4 mg/dL (1.6-2.6); Osmolality,Calculated 291 (275-295); Phosphorous 8.1 mg/dL (2.4-5.1); Potassium 3.9 mMol/L (3.4-5.1); Sodium 138 mMol/L (136-145); Total Protein 7.2 gm/dL (5.7-8.2); eGFR 7 See Note
[2025-04-09] MEDS: SEVELAMER CARBONATE 800 MG TABLET PO ×3 (07:30→17:22)
[2025-04-09] MEDS: CITRIC ACID/SODIUM CITR 15 ML UDC (BICITRA) 30 ML PO ×2 (09:14→20:34)
[2025-04-09] MEDS: APIXABAN 2.5 MG TABLET PO ×2 (09:15→20:34)
--- NOTE | 2025-04-09 09:59 | ESPR_ITS ---
Documentation for date of: 04/09/25 Subjective Subjective Interval history: Pt is seen and examined no new complaints Exam Vital Signs Temp Pulse Resp BP Pulse Ox O2 Del Method O2 Flow Rate 97.5 F 85 21 H 134/66 H 96 Nasal Cannula 2 04/09/25 08:00 04/09/25 09:15 04/09/25 08:00 04/09/25 09:15 04/09/25 08:00 04/09/25 08:00 04/09/25 08:00 Narrative Exam Heart s1, s2, chest CTA simon neurology intact ext plus 1 edema Objective Labs 04/10/25 07:53 04/10/25 07:53 Labs: Laboratory Results - last 24 hr 04/09/25 05:21 WBC 10.7 H RBC 3.18 L Hgb 9.5 L Hct 28.4 L MCV 89 MCH 29.9 MCHC 33.5 RDW Std Deviation 40.0 Plt Count 303 D Neut % (Auto) 75 Lymph % (Auto) 11 [place] % (Auto) 10 Eos % (Auto) 2 Baso % (Auto) 0 Neut # (Auto) 8.0 H Lymph # (Auto) 1.2 [place] # (Auto) 1.1 H Eos # (Auto) 0.2 Baso # (Auto) 0.0 Immature Gran # (Auto) 0.16 H Absolute Nucleated RBC 0.00 Immature Gran % 2 H Nucleated RBC % 0 Sodium 138 Potassium 3.9 Chloride 95 L Carbon Dioxide 27.6 Anion Gap 15 BUN 57 H Creatinine 7.4 H* D Estim Creat Clear Calc 8.6 L eGFR 7 L* BUN/Creatinine Ratio 8 L Glucose 106 Calculated Osmolality 291 Calcium 9.6 Corrected Calcium 9.6 Phosphorus 8.1 H Magnesium 2.4 Total Bilirubin 0.3 AST 20 ALT 29 Alkaline Phosphatase 55 Total Protein 7.2 Albumin 4.1 Globulin 3.1 Albumin/Globulin Ratio 1.3 ABG Interpretation ABG results: 03/31/25 07:22 VBG pH 7.33 VBG pCO2 32 L VBG pO2 53 VBG Base Excess -8 L Assessment & Plan Assessment and plan (1) Acute renal failure (ARF): Status: Acute Assessment and plan: c/w dialysis 3 times a week arranging out pt dialysis Additional Assessment & Plan Additional Plan: Covering Dr Watkins VIVEK due to ATN creat worsening so started on dialysis second dialysis today pt is making urine Hold dialysis tomorrow watch creat closely discussed with primary team
--- NOTE | 2025-04-09 13:26 | ESPR_ITS ---
<Statement entered by Jojo Diallo MD - 04/15/25 11:43> I reviewed above note and agree with findings and plans. I have also personally examined the patient with medicine team and went over assessment and plan with medical team including operations intern and resident physician. Documentation for date of: 04/09/25 Subjective Subjective Interval history: Patient was seen and examined at bedside. A.m. vitals and labs reviewed. Patient plans to get hemodialysis tomorrow before getting discharged. Patient is oriented and alert. Still has generalized bodyaches and headache. Denies chest pain, shortness of breath, fever, chills. Review of systems otherwise negative except what is mentioned above. Exam Vital Signs Temp Pulse Resp BP Pulse Ox O2 Del Method O2 Flow Rate 98.0 F 77 15 138/74 H 100 Room Air 2 04/09/25 12:00 04/09/25 12:56 04/09/25 12:56 04/09/25 12:00 04/09/25 12:56 04/09/25 12:00 04/09/25 09:00 Narrative Exam General: Awake and in no acute distress. Conversational and non-toxic appearing. Permanent tunneled dialysis catheter in right upper chest. Port clean, dry, and intact. HEENT: Normocephalic, atraumatic, mucous membranes moist. Heart: Regular rate and rhythm, normal S1 and S2, no murmurs. Lungs: Clear to auscultation with no wheezing or crackles. Abdomen: Soft, nondistended, nontender, positive bowel sounds. No guarding or rebound tenderness. Neurologic: Alert and oriented x3, no gross neurological deficit, and patient able to move all 4 extremities. Extremities: No edema. Skin: No rash or ecchymoses. Objective Labs 04/09/25 05:21 04/09/25 05:21 Labs: Laboratory Results - last 24 hr 04/09/25 05:21 WBC 10.7 H RBC 3.18 L Hgb 9.5 L Hct 28.4 L MCV 89 MCH 29.9 MCHC 33.5 RDW Std Deviation 40.0 Plt Count 303 D Neut % (Auto) 75 Lymph % (Auto) 11 [place] % (Auto) 10 Eos % (Auto) 2 Baso % (Auto) 0 Neut # (Auto) 8.0 H Lymph # (Auto) 1.2 [place] # (Auto) 1.1 H Eos # (Auto) 0.2 Baso # (Auto) 0.0 Immature Gran # (Auto) 0.16 H Absolute Nucleated RBC 0.00 Immature Gran % 2 H Nucleated RBC % 0 Sodium 138 Potassium 3.9 Chloride 95 L Carbon Dioxide 27.6 Anion Gap 15 BUN 57 H Creatinine 7.4 H* D Estim Creat Clear Calc 8.6 L eGFR 7 L* BUN/Creatinine Ratio 8 L Glucose 106 Calculated Osmolality 291 Calcium 9.6 Corrected Calcium 9.6 Phosphorus 8.1 H Magnesium 2.4 Total Bilirubin 0.3 AST 20 ALT 29 Alkaline Phosphatase 55 Total Protein 7.2 Albumin 4.1 Globulin 3.1 Albumin/Globulin Ratio 1.3 ABG Interpretation ABG results: 03/31/25 07:22 VBG pH 7.33 VBG pCO2 32 L VBG pO2 53 VBG Base Excess -8 L Quality Measures Quality Measures none Advance care planning discussed with:: patient Assessment & Plan Assessment Current Active Medications: Generic Name Dose Route Start Last Admin Trade Name Freq PRN Reason Stop Dose Admin Acetaminophen 650 mg 03/30/25 22:49 04/03/25 11:03 Acetaminophen 325 Mg Tablet PO 04/29/25 22:48 650 mg Q6H PRN Administration Fever >99.5 Acetaminophen 1,000 mg 03/31/25 01:43 04/07/25 20:12 Acetaminophen 500 Mg Tablet PO 04/30/25 01:40 1,000 mg Q6H PRN Administration PAIN SCALE 1-3 (mild Albuterol/Ipratropium 3 ml 03/30/25 22:49 Albuterol/Ipratropium (Duoneb) Rt Svetlana 3 Ml Nebu INH 04/29/25 22:48 Q2HR PRN SHORTNESS OF BREATH OR WHEEZE Albuterol/Ipratropium 3 ml 03/31/25 01:00 04/09/25 12:54 Albuterol/Ipratropium (Duoneb) Rt Svetlana 3 Ml Nebu INH 04/30/25 00:59 3 ml Q6HRRT SPARKLE Administration Amlodipine Besylate 10 mg 03/30/25 23:50 04/09/25 09:15 Amlodipine Besylate 5 Mg Tablet PO 04/29/25 23:49 10 mg QDAY SPARKLE Administration Apixaban 2.5 mg 04/08/25 21:00 04/09/25 09:15 Apixaban 2.5 Mg Tablet PO 05/08/25 20:59 2.5 mg BID SPARKLE Administration Atorvastatin Calcium 40 mg 03/31/25 21:00 04/08/25 20:50 Atorvastatin Calcium 20 Mg Tablet PO 04/30/25 20:59 40 mg HS SPARKLE Administration Citric Acid/Sodium Citrate 30 ml 03/31/25 09:00 04/09/25 09:14 Citric Acid/Sodium Citr 15 Ml Udc (Bicitra) PO 04/30/25 08:59 30 ml BID SPARKLE Administration Heparin Sodium (Porcine) 3,300 unit 04/05/25 18:50 04/07/25 11:35 Heparin Sod Inj 1000 Unit/Ml Vial 10 Ml INDWELLCAT 04/19/25 18:49 3,300 unit PRN PRN Administration DIALYSIS Albumin Human 25 gm in 100 mls @ 100 mls/min 04/01/25 10:03 Albuminar-25 Ivpb IV PRN PRN DIALYSIS Labetalol HCl 10 mg 04/01/25 07:56 04/05/25 04:27 Labetalol Inj 5 Mg/Ml Vial 20 Ml IVP 05/01/25 07:59 10 mg Q4HR PRN Administration SBP > 160mmHg Ondansetron HCl 4 mg 03/30/25 22:49 04/01/25 14:36 Ondansetron Inj 2 Mg/Ml Inj 2 Ml IVP 04/29/25 22:48 4 mg Q6H PRN Administration NAUSEA OR VOMITING Protocol Pharmacy Consult 1 each 03/31/25 07:33 Pharmacy Renal Dose Adjustment 1 Ea XX 04/30/25 07:32 PRN PRN CONSULT Sevelamer Carbonate 800 mg 04/06/25 12:00 04/09/25 11:57 Sevelamer Carbonate 800 Mg Tablet PO 05/06/25 11:59 800 mg TIDWM SPARKLE Administration Plan Patient is a 80-year-old male with past medical history of hypertension and hyperlipidemia who presented to the ED on 03/30 with flu-like symptoms with fever chills, nausea, vomiting, diarrhea. Admitted for acute hypoxic respiratory failure secondary to CAP and fluid overload, later developed acute tubular necrosis and end stage renal disease. Now requiring central line placement and hemodialysis, pending hemodialysis chair for outpatient. #ATN progressing to ESRD - on hemodialysis -CT abdomen pelvis shows some perinephric stranding no hydronephrosis. However patient denies any flank pain, dysuria or urinary urgency. -Renal ultrasound shows minimal dilation of the renal calyces -Nuclear renal US showed bilateral severely impaired renal function (04/04/2025). -S/p new tunnel cath placement on 04/05 Plan: -Continue hemodialysis -Pending outpatient dialysis chair time -Avoid nephrotoxins and renally dose medications -Continue Sevelamer -Continue Bicitra 30 mL BID -Strict I&O's -Hold home lisinopril #Acute hypoxic respiratory failure #Community-acquired pneumonia (Resolved) -CXR on admission suspicious for early pneumonia left base and right upper lobe as well as congestion S/p Azithromycin 500mg 03/31-04/03 and ceftriaxone 1g 03/31- 04/07/2025 -Echo 03/31/2025 - EF 65% with dilated IVC and moderate bilateral atrial enlargement -Blood cultures negative Plan: -Wean supplemental oxygen as tolerated - Continue hemodialysis -Strict I's and O's #Paroxysmal Afib - resolved On 04/03 : Overnight team reported patient went into A-fib for less than a minute with a heart rate of 175 however when EKG was obtained EKG showed normal sinus rhythm and patient was converted back to normal sinus rhythm without any interventions. [id number] score 3, HAS-BLED 3 Plan: -Will continue to monitor telemetry -Mg>2 and K>4 -Eliquis 2.5 mg p.o. twice daily #Diarrhea-resolved -Patient states for the past 1 week he has had diarrhea but denies any changes to his diet. Denies any recent antibiotic use -Last diarrheal episode 7 PM on 03/30 -Stool cultures were ordered but canceled as patient had formed stool, no precautions required #Elevated troponin - resolved Elevated troponin likely in the setting of NSTEMI type II demand ischemia likely secondary to VIVEK, likely ATN. Denied chest pain or pressure. Downtrended. EKG (04/03/2025): no st elevation noted, R. BBB QRS >120 #Proctitis Proctitis noted on CT abdomen likely setting of gastritis vs inflammatory bowel disease. Patient recommended to follow up as outpatient with Dr. Martinez given overall complex medical conditions during this hospitalization. CT of abdomen/Pelvis shows rectal wall thickening Plan -Outpatient follow up with gastroenterology -Consulted GI Dr. Martinez, appreciate recommendations #Primary Hypertension #Hyperlipidemia Take lisinopril, statin and amlodipine at home. Plan -Hold Lisinoprol given ESRD -Continue home amlodipine -Continue Atorvastatin 40 mg PO Health Maintenance Disposition: Pending dialysis chair DVT Prophylaxis: enoxaparin 30mg Qdaily GI Prophylaxis: not indicated Diet: low sodium diet Lines: Peripheral lines Code status: Full Assessment and plan discussed with my attending physician Dr. Yoel Kong (PGY-1)- Internal medicine resident
--- NOTE | 2025-04-09 18:01 | ESPR_ITS ---
Documentation for date of: 04/09/25 Subjective Subjective Interval history: Hemoglobin hematocrit 9.5 and 28.4 Exam Vital Signs Temp Pulse Resp BP Pulse Ox O2 Del Method O2 Flow Rate 98.5 F 84 14 140/60 H 92 L Nasal Cannula 2 04/09/25 16:00 04/09/25 16:00 04/09/25 16:00 04/09/25 16:00 04/09/25 16:00 04/09/25 16:00 04/09/25 16:00 Objective Labs 04/09/25 05:21 04/09/25 05:21 Labs: Laboratory Results - last 24 hr 04/09/25 05:21 WBC 10.7 H RBC 3.18 L Hgb 9.5 L Hct 28.4 L MCV 89 MCH 29.9 MCHC 33.5 RDW Std Deviation 40.0 Plt Count 303 D Neut % (Auto) 75 Lymph % (Auto) 11 [place] % (Auto) 10 Eos % (Auto) 2 Baso % (Auto) 0 Neut # (Auto) 8.0 H Lymph # (Auto) 1.2 [place] # (Auto) 1.1 H Eos # (Auto) 0.2 Baso # (Auto) 0.0 Immature Gran # (Auto) 0.16 H Absolute Nucleated RBC 0.00 Immature Gran % 2 H Nucleated RBC % 0 Sodium 138 Potassium 3.9 Chloride 95 L Carbon Dioxide 27.6 Anion Gap 15 BUN 57 H Creatinine 7.4 H* D Estim Creat Clear Calc 8.6 L eGFR 7 L* BUN/Creatinine Ratio 8 L Glucose 106 Calculated Osmolality 291 Calcium 9.6 Corrected Calcium 9.6 Phosphorus 8.1 H Magnesium 2.4 Total Bilirubin 0.3 AST 20 ALT 29 Alkaline Phosphatase 55 Total Protein 7.2 Albumin 4.1 Globulin 3.1 Albumin/Globulin Ratio 1.3 Impressions Impression: End-stage renal disease on hemodialysis Proctitis Outpatient colonoscopy ABG Interpretation ABG results: 03/31/25 07:22 VBG pH 7.33 VBG pCO2 32 L VBG pO2 53 VBG Base Excess -8 L Assessment & Plan A&P Narrative # Abnormal CT scan of the abdomen pelvis showing thickening of the rectal wall differential diagnoses include Proctitis due to underlying inflammatory bowel disease Unlikely infiltrating malignancy Possibly under distention of the rectum Suggestions Patient has multiple medical issues going on Let him improve Will consider fiberoptic colonoscopy prior to discharge Other medical problems include VIVEK pulmonary edema resolving Congestive heart failure improving Acute hypoxic respiratory failure improving Pneumonia Elevated troponin Thank you very much for the opportunity to participate in the care of this patient Time Spent With Patient Time: Total time spent is greater than 50% in coordination of care (as documented) at patient's floor/unit and/or counseling patient:
[2025-04-09] MEDS: ATORVASTATIN CALCIUM 20 MG TABLET 40 MG PO (20:34)
[2025-04-09] MEDS: ACETAMINOPHEN 500 MG TABLET 1000 MG PO (20:39)
[2025-04-10] VITALS (26 sets, daily range): BP systolic 114–151; BP diastolic 53–96; PULSE 67–90; RESP 16–25; TEMP 36.3–37; O2SAT 91–99; BMI 30.3
[2025-04-10] MEDS: ALBUTEROL/IPRATROPIUM (Duoneb) RT SOL 3 ML NEBU INH ×3 (01:08→12:46)
[2025-04-10] MEDS: SEVELAMER CARBONATE 800 MG TABLET PO ×2 (07:59→12:20)
[2025-04-10] MEDS: CITRIC ACID/SODIUM CITR 15 ML UDC (BICITRA) 30 ML PO (07:59)
[2025-04-10] MEDS: APIXABAN 2.5 MG TABLET PO (07:59)
--- NOTE | 2025-04-10 08:01 | PC.NURSE ---
COORDINATED CARE WITH DIALYSIS NURSE.
[2025-04-10 08:13] LABS: Basophils # (Auto) 0.0 Thou/mm3 (0.0-0.2); Basophils % (Auto) 0 % (0-2.5); Eosinophils # (Auto) 0.2 Thou/mm3 (0.0-0.5); Eosinophils % (Auto) 2 % (0-10); Hematocrit 29.2 % (41.0-53.0); Hemoglobin 9.8 g/dL (13.5-16.0); Immature Granulocytes Auto 0.19 Thou/mm3 (0.00-0.00); Lymphocytes # (Auto) 1.5 Thou/mm3 (1.0-4.8); Lymphocytes % (Auto) 14 % (10-50); Mean Corpuscular HGB Conc 33.6 g/dl (31.0-37.0); Mean Corpuscular Hemoglobin 30.1 pg (25.0-35.0); Mean Corpuscular Volume 90 fL (80-100); Monocytes # (Auto) 0.9 Thou/mm3 (0.0-0.8); Monocytes % (Auto) 9 % (0-12); Neutrophils # (Auto) 7.7 Thou/mm3 (1.8-7.7); Neutrophils % (Auto) 73 % (37-80); Nucleated Red Blood Cell # 0.00 Thou/mm3 (0.00-0.00); Nucleated Red Blood Cell % 0 /100 WBC (0); Platelet Count 347 Thou/mm3 (140-440); RDW Standard Deviation 40.0 fL (35.1-43.9); Red Blood Count 3.26 Miln/mm3 (4.50-5.90); White Blood Count 10.6 Thou/mm3 (3.8-10.6)
[2025-04-10 08:34] LABS: Alanine Aminotransferase 26 U/L (10-49); Albumin, Serum 4.6 gm/dL (3.4-4.8); Albumin/Globulin Ratio 1.4 (1.2-2.2); Alkaline Phosphatase 58 U/L (46-116); Anion Gap 16 (7-16); Aspartate Amino Transferase 18 U/L (0-34); BUN/Creatinine Ratio 8 Ratio (12-20); Bilirubin,Total 0.4 mg/dL (0.3-1.2); Blood Urea Nitrogen 70 mg/dL (9-23); Calcium 10.6 mg/dL (8.3-10.6); Calcium (Corrected) 10.6 mg/dL (8.5-10.1); Carbon Dioxide 28.4 mMol/L (20.0-31.0); Chloride 95 mMol/L (98-107); Creatinine (Component) 8.6 mg/dL (0.6-1.3); Estimated Creatinine Clearance 7.3 mL/min (>60); Globulin 3.4 gm/dL (2.3-3.5); Glucose 119 mg/dL (74-106); Osmolality,Calculated 299 (275-295); Potassium 3.6 mMol/L (3.4-5.1); Sodium 139 mMol/L (136-145); Total Protein 8.0 gm/dL (5.7-8.2); eGFR 6 See Note
[2025-04-10] MEDS: HEPARIN SOD INJ 1000 UNIT/ML VIAL 10 ML 2000 UNIT INDWELLCAT (08:37)
--- NOTE | 2025-04-10 09:00 | PC.NURSE ---
PT TRANSFER TO DIALYSIS, PT ALERT AND ORIENTED X3.
[2025-04-10 09:27] LABS: Magnesium 2.3 mg/dL (1.6-2.6); Phosphorous 8.1 mg/dL (2.4-5.1)
--- NOTE | 2025-04-10 09:42 | PD.RESPRO ---
Documentation for date of: 04/10/25 Subjective Subjective Interval history: Overnight events: No acute events overnight Patient initially out of room for dialysis during morning rounds. Went to round on patient later in the day. Patient was seen and examined at bedside. Ins/Outs 1440/250. AM vitals and labs reviewed. AM labs taken prior to todays dialysis. BUN 17, creatinine, and phosphate 8.1. Patient currently takes Sevelamer 800 mg 3 times daily. Previous dialysis session completed 04/07/25. Review of systems otherwise negative except for what is mentioned above. Exam Vital Signs Temp Pulse Resp BP Pulse Ox O2 Del Method O2 Flow Rate 98.2 F 67 16 151/80 H 94 L Nasal Cannula 1 04/10/25 08:22 04/10/25 09:30 04/10/25 08:22 04/10/25 09:30 04/10/25 08:22 04/10/25 07:48 04/10/25 08:22 Objective Labs 04/10/25 07:53 04/10/25 07:53 Labs: Laboratory Results - last 24 hr 04/10/25 07:53 WBC 10.6 RBC 3.26 L Hgb 9.8 L Hct 29.2 L MCV 90 MCH 30.1 MCHC 33.6 RDW Std Deviation 40.0 Plt Count 347 D Neut % (Auto) 73 Lymph % (Auto) 14 [place] % (Auto) 9 Eos % (Auto) 2 Baso % (Auto) 0 Neut # (Auto) 7.7 Lymph # (Auto) 1.5 [place] # (Auto) 0.9 H Eos # (Auto) 0.2 Baso # (Auto) 0.0 Immature Gran # (Auto) 0.19 H Absolute Nucleated RBC 0.00 Immature Gran % 2 H Nucleated RBC % 0 Sodium 139 Potassium 3.6 Chloride 95 L Carbon Dioxide 28.4 Anion Gap 16 BUN 70 H Creatinine 8.6 H* D Estim Creat Clear Calc 7.3 L eGFR 6 L* BUN/Creatinine Ratio 8 L Glucose 119 H Calculated Osmolality 299 H Calcium 10.6 Corrected Calcium 10.6 H Phosphorus 8.1 H Magnesium 2.3 Total Bilirubin 0.4 AST 18 ALT 26 Alkaline Phosphatase 58 Total Protein 8.0 Albumin 4.6 D Globulin 3.4 Albumin/Globulin Ratio 1.4 ABG Interpretation ABG results: 03/31/25 07:22 VBG pH 7.33 VBG pCO2 32 L VBG pO2 53 VBG Base Excess -8 L Quality Measures Quality Measures none Advance care planning discussed with:: patient Assessment & Plan Assessment Current Active Medications: Generic Name Dose Route Start Last Admin Trade Name Freq PRN Reason Stop Dose Admin Acetaminophen 650 mg 03/30/25 22:49 04/03/25 11:03 Acetaminophen 325 Mg Tablet PO 04/29/25 22:48 650 mg Q6H PRN Administration Fever >99.5 Acetaminophen 1,000 mg 03/31/25 01:43 04/09/25 20:39 Acetaminophen 500 Mg Tablet PO 04/30/25 01:40 1,000 mg Q6H PRN Administration PAIN SCALE 1-3 (mild Albuterol/Ipratropium 3 ml 03/30/25 22:49 Albuterol/Ipratropium (Duoneb) Rt Svetlana 3 Ml Nebu INH 04/29/25 22:48 Q2HR PRN SHORTNESS OF BREATH OR WHEEZE Albuterol/Ipratropium 3 ml 03/31/25 01:00 04/10/25 07:11 Albuterol/Ipratropium (Duoneb) Rt [place] 3 Ml Nebu INH 04/30/25 00:59 3 ml Q6HRRT SPARKLE Administration Amlodipine Besylate 10 mg 03/30/25 23:50 04/09/25 09:15 Amlodipine Besylate 5 Mg Tablet PO 04/29/25 23:49 10 mg QDAY SPARKLE Administration Apixaban 2.5 mg 04/08/25 21:00 04/10/25 07:59 Apixaban 2.5 Mg Tablet PO 05/08/25 20:59 2.5 mg BID SPARKLE Administration Atorvastatin Calcium 40 mg 03/31/25 21:00 04/09/25 20:34 Atorvastatin Calcium 20 Mg Tablet PO 04/30/25 20:59 40 mg HS SPRAKLE Administration Citric Acid/Sodium Citrate 30 ml 03/31/25 09:00 04/10/25 07:59 Citric Acid/Sodium Citr 15 Ml Udc (Bicitra) PO 04/30/25 08:59 30 ml BID SPARKLE Administration Epoetin Jaxon 10,000 unit 04/10/25 14:00 Epoetin Jaxon-Epbx Inj 10,000 Unit/Ml Vial (Esrd) SC 04/10/25 14:01 X1 ONE Heparin Sodium (Porcine) 3,300 unit 04/05/25 18:50 04/07/25 11:35 Heparin Sod Inj 1000 Unit/Ml Vial 10 Ml INDWELLCAT 04/19/25 18:49 3,300 unit PRN PRN Administration DIALYSIS Albumin Human 25 gm in 100 mls @ 100 mls/min 04/01/25 10:03 Albuminar-25 Ivpb IV PRN PRN DIALYSIS Labetalol HCl 10 mg 04/01/25 07:56 04/05/25 04:27 Labetalol Inj 5 Mg/Ml Vial 20 Ml IVP 05/01/25 07:59 10 mg Q4HR PRN Administration SBP > 160mmHg Ondansetron HCl 4 mg 03/30/25 22:49 04/01/25 14:36 Ondansetron Inj 2 Mg/Ml Inj 2 Ml IVP 04/29/25 22:48 4 mg Q6H PRN Administration NAUSEA OR VOMITING Protocol Pharmacy Consult 1 each 03/31/25 07:33 Pharmacy Renal Dose Adjustment 1 Ea XX 04/30/25 07:32 PRN PRN CONSULT Sevelamer Carbonate 800 mg 04/06/25 12:00 04/10/25 07:59 Sevelamer Carbonate 800 Mg Tablet PO 05/06/25 11:59 800 mg TIDWM SPARKLE Administration Plan Mr. Brian is a 80 year old gentleman with a past medical history of HTN and HLD who presented with flu-like symptoms. Nephrology was consulted due to initial labs suggesting an acute kidney injury due to highly elevated Cr and significantly decreased eGFR. #Acute renal failure 2/2 acute tubular necrosis requiring new onset hemodialysis - Renal nuclear US suggests bilateral severely impaired renal function. - New port placed in preparation for outpatient dialysis MWF schedule. - Completed 6 HD sessions during current hospitalization (04/01-04/03; 04/05; 04/07; 04/10). - Continue Sevelamer carbonate 800mg PO TID to decrease phosphorus levels (04/06 AM labs phosphorus 6.0, ranged from 5.5-7.3 during hospitalization) - Increase [...] - Nephrology will continue to monitor. Patient was discussed with the Nephrology attending, Dr. Quan. Thank you for allowing us to participate in the care of this patient. Ismael Yu, PGY-1
[2025-04-10] MEDS: EPOETIN ALFA-EPBX INJ 10,000 UNIT/ML VIAL (ESRD) 10000 UNIT SC (11:12)
--- NOTE | 2025-04-10 11:12 | PD.RESPRO ---
Documentation for date of: 04/10/25 Exam Vital Signs Temp Pulse Resp BP Pulse Ox O2 Del Method O2 Flow Rate 98.2 F 71 16 114/96 H 94 L Nasal Cannula 1 04/10/25 08:22 04/10/25 11:00 04/10/25 08:22 04/10/25 11:00 04/10/25 08:22 04/10/25 07:48 04/10/25 08:22 Objective Labs 04/10/25 07:53 04/10/25 07:53 Labs: Laboratory Results - last 24 hr 04/10/25 07:53 WBC 10.6 RBC 3.26 L Hgb 9.8 L Hct 29.2 L MCV 90 MCH 30.1 MCHC 33.6 RDW Std Deviation 40.0 Plt Count 347 D Neut % (Auto) 73 Lymph % (Auto) 14 [place] % (Auto) 9 Eos % (Auto) 2 Baso % (Auto) 0 Neut # (Auto) 7.7 Lymph # (Auto) 1.5 [place] # (Auto) 0.9 H Eos # (Auto) 0.2 Baso # (Auto) 0.0 Immature Gran # (Auto) 0.19 H Absolute Nucleated RBC 0.00 Immature Gran % 2 H Nucleated RBC % 0 Sodium 139 Potassium 3.6 Chloride 95 L Carbon Dioxide 28.4 Anion Gap 16 BUN 70 H Creatinine 8.6 H* D Estim Creat Clear Calc 7.3 L eGFR 6 L* BUN/Creatinine Ratio 8 L Glucose 119 H Calculated Osmolality 299 H Calcium 10.6 Corrected Calcium 10.6 H Phosphorus 8.1 H Magnesium 2.3 Total Bilirubin 0.4 AST 18 ALT 26 Alkaline Phosphatase 58 Total Protein 8.0 Albumin 4.6 D Globulin 3.4 Albumin/Globulin Ratio 1.4 ABG Interpretation ABG results: 03/31/25 07:22 VBG pH 7.33 VBG pCO2 32 L VBG pO2 53 VBG Base Excess -8 L Quality Measures Quality Measures none Assessment & Plan Assessment Current Active Medications: Generic Name Dose Route Start Last Admin Trade Name Freq PRN Reason Stop Dose Admin Acetaminophen 650 mg 03/30/25 22:49 04/03/25 11:03 Acetaminophen 325 Mg Tablet PO 04/29/25 22:48 650 mg Q6H PRN Administration Fever >99.5 Acetaminophen 1,000 mg 03/31/25 01:43 04/09/25 20:39 Acetaminophen 500 Mg Tablet PO 04/30/25 01:40 1,000 mg Q6H PRN Administration PAIN SCALE 1-3 (mild Albuterol/Ipratropium 3 ml 03/30/25 22:49 Albuterol/Ipratropium (Duoneb) Rt Svetlana 3 Ml Nebu INH 04/29/25 22:48 Q2HR PRN SHORTNESS OF BREATH OR WHEEZE Albuterol/Ipratropium 3 ml 03/31/25 01:00 04/10/25 07:11 Albuterol/Ipratropium (Duoneb) Rt Svetlana 3 Ml Nebu INH 04/30/25 00:59 3 ml Q6HRRT SPARKLE Administration Amlodipine Besylate 10 mg 03/30/25 23:50 04/09/25 09:15 Amlodipine Besylate 5 Mg Tablet PO 04/29/25 23:49 10 mg QDAY SPARKLE Administration Apixaban 2.5 mg 04/08/25 21:00 04/10/25 07:59 Apixaban 2.5 Mg Tablet PO 05/08/25 20:59 2.5 mg BID SPARKLE Administration Atorvastatin Calcium 40 mg 03/31/25 21:00 04/09/25 20:34 Atorvastatin Calcium 20 Mg Tablet PO 04/30/25 20:59 40 mg HS SPARKLE Administration Citric Acid/Sodium Citrate 30 ml 03/31/25 09:00 04/10/25 07:59 Citric Acid/Sodium Citr 15 Ml Udc (Bicitra) PO 04/30/25 08:59 30 ml BID SPARKLE Administration Epoetin Jaxon 10,000 unit 04/10/25 11:15 Epoetin Jaxon-Epbx Inj 10,000 Unit/Ml Vial (Esrd) SC 04/10/25 11:16 X1 ONE Heparin Sodium (Porcine) 3,300 unit 04/05/25 18:50 04/07/25 11:35 Heparin Sod Inj 1000 Unit/Ml Vial 10 Ml INDWELLCAT 04/19/25 18:49 3,300 unit PRN PRN Administration DIALYSIS Albumin Human 25 gm in 100 mls @ 100 mls/min 04/01/25 10:03 Albuminar-25 Ivpb IV PRN PRN DIALYSIS Labetalol HCl 10 mg 04/01/25 07:56 04/05/25 04:27 Labetalol Inj 5 Mg/Ml Vial 20 Ml IVP 05/01/25 07:59 10 mg Q4HR PRN Administration SBP > 160mmHg Ondansetron HCl 4 mg 03/30/25 22:49 04/01/25 14:36 Ondansetron Inj 2 Mg/Ml Inj 2 Ml IVP 04/29/25 22:48 4 mg Q6H PRN Administration NAUSEA OR VOMITING Protocol Pharmacy Consult 1 each 03/31/25 07:33 Pharmacy Renal Dose Adjustment 1 Ea XX 04/30/25 07:32 PRN PRN CONSULT Sevelamer Carbonate 800 mg 04/06/25 12:00 04/10/25 07:59 Sevelamer Carbonate 800 Mg Tablet PO 05/06/25 11:59 800 mg TIDWM SPARKLE Administration
--- NOTE | 2025-04-10 11:39 | PC.SS ---
SS received call from Effie at [facility] Dialysis patient's chair time is Thursday at 11:30am. First session is 04-13-25 at 11am.
[2025-04-10] MEDS: HEPARIN SOD INJ 1000 UNIT/ML VIAL 10 ML 3300 UNIT INDWELLCAT (12:11)
--- NOTE | 2025-04-10 12:13 | PC.NURSE ---
DIALYSIS NURSE REPORT AT NURSING STATION, PT ALERT AND ORIENTED X3.
--- NOTE | 2025-04-10 13:20 | ESDS_ITS ---
<Statement entered by Jojo Diallo MD - 04/15/25 11:44> I reviewed above note and agree with findings and plans. I have also personally examined the patient with medicine team and went over assessment and plan with medical team including sports marketing internship and resident physician. Planned Discharge Date 04/10/25 DS: Providers Provider Date of admission: 03/30/25 22:49 Primary care physician: Scott Alexander MD Admitting Provider: Jason Jacobo MD Attending Provider on Admission: Jojo Diallo MD Consults: 03/30/25 20:44 Consult to Nephrology Stat Comment: Consulting Provider: Fatmata Watkins 03/31/25 01:58 Referral Infection Control Routine Comment: Reason for Infection Control Referral: Admitted with Diarrhea Referral Registered Dietitian Routine Comment: 03/31/25 08:54 Consult to Gastroenterology Routine Comment: Proctitis Consulting Provider: Noman Martinez Attending Provider on DC: RESIDENT Shivam Discharging Provider: RESIDENT Shivam DS: Diagnosis Problem List Completed Was Problem List Reviewed/Reconciled?: Yes Hospital Course Hospital Course Hospital course: Patient is a 80-year-old male with past medical history of hypertension and hyperlipidemia who presented to the ED on 03/30 with flu-like symptoms with fever chills, nausea, vomiting, diarrhea. Admitted for acute hypoxic respiratory failure secondary to CAP and fluid overload, later developed acute tubular necrosis and end stage renal disease. Received multiple hemodialysis and permanent dialysis catherter has been placed, which progressed to ESRD. Patient now following Dr. Watkins for nephrology and scheduled for dialysis time. ED Course: ED vitals: BP 182/95, HR 64, saturating 95% on room air ED labs: Normocytic anemia, bicarb 18.3, chloride 108, BUN 74, creatinine 6.8, EGFR 8, lactic acid normal, slight elevation in troponins, BNP 899, UA negative for UTI, U tox negative Chest x-ray showed right upper lobe and left base pneumonia with vascular congestion, EKG shows sinus rhythm. Hospital Course: On admission, CT abdomen pelvis showed some perinephric stranding no hydr onephrosis. However patient denied any flank pain, dysuria or urinary urgency. Renal ultrasound shows minimal dilation of the renal calyces and Nuclear renal US showed bilateral severely impaired renal function (04/04/2025). Acute renal failure required permacath tunnel for dialysis given worsening kidney function. Patient is following Dr. Watkins as outpatient for nephrology. Patient had new tunnel dialysis catheter placement on 04/05/2025. Patient received multiple hemodialysis at the hospital. Patient received outpatient dialysis chair time before discharge. Per Nephrology recommendations, resumed lisinopril and amlodipine despite acute kidney injury on discharge. Early pneumonia left base and right upper lobe. Patient received azithromycin 500 mg 03/31-04/03 and and ceftriaxone 03/31- 04/07/2025, which completed antibiotic course. Blood cultures negative. On 04/03 EKG shows a paroxysmal A-fib. Converted back to normal sinus rhythm without any interventions. Patient received Eliquis 2.5 mg p.o. twice daily. #ATN progressing to ESRD - on hemodialysis #Acute hypoxic respiratory failure #Community-acquired pneumonia (Resolved) #Paroxysmal Afib - resolved #Diarrhea-resolved #Elevated troponin - resolved #Proctitis #Primary Hypertension #Hyperlipidemia Instructions: Dialysis Scheduled: Thursday at 11:30am. First session is 2024 at 11am at [facility] [address] [place]. [address] phone# [phone] Instructions: -New medication of Sevelamer-Carbonate 800 mg three times a day with meals to keep phosphate levels normal -Eliquis 2.5 mg BID for atrial fibrillation -continue all other medication as prescribed. -Please follow up with your primary care provider within one week of discharge -If your symptoms worsen,please seek immediate medical attention and return to your nearest emergency room -If you do not have a primary care provider, you may follow up at the [facility] at [address], [place] [address], Safe to discharge to home. Assessment and plan discussed with my attending physician Dr. Diallo and Dr. Brandie Kong (PGY-1)- Internal medicine resident - The patient's plan was discussed with attending Dr. Yoel Diego MD PGY2 Internal Medicine Time Spent with Patient Time attestation: Total time spent providing and/or coordinating discharge services: Time spent: Greater than 30 minutes Exam Vital Signs Temp Pulse Resp BP Pulse Ox O2 Del Method O2 Flow Rate 98.6 F 78 18 145/82 H 99 Nasal Cannula 2 04/10/25 11:56 04/10/25 12:46 04/10/25 12:46 04/10/25 12:22 04/10/25 12:46 04/10/25 07:48 04/10/25 12:46 Narrative Exam General: Awake and in no acute distress. Conversational and non-toxic appearing. Permanent tunneled dialysis catheter in right upper chest. Port clean, dry, and intact. HEENT: Normocephalic, atraumatic, mucous membranes moist. Heart: Regular rate and rhythm, normal S1 and S2, no murmurs. Lungs: Clear to auscultation with no wheezing or crackles. Abdomen: Soft, nondistended, nontender, positive bowel sounds. No guarding or rebound tenderness. Neurologic: Alert and oriented x3, no gross neurological deficit, and patient able to move all 4 extremities. Extremities: No edema. Skin: No rash or ecchymoses. Discharge Plan Plan Patient Disposition: HOME (Self Care) Patient condition on transfer: Stable Care Plan Goals: Dialysis Scheduled: Thursday at 11:30am. First session is 2024 at 11am at [facility] [address] [place] [address] phone# [phone] Instructions: -New medication of Sevelamer-Carbonate 800 mg three times a day with meals to keep phosphate levels normal -Eliquis 2.5 mg BID for atrial fibrillation -continue all other medication as prescribed. -Please follow up with your primary care provider within one week of discharge -If your symptoms worsen,please seek immediate medical attention and return to your nearest emergency room -If you do not have a primary care provider, you may follow up at the [facility] at [address], [place] [address], Prescriptions/Referrals Prescriptions/Med Rec: New atorvastatin 20 mg Tablet 40 mg PO HS 30 Days Qty: 60 1RF sodium citrate-citric acid 500-334 mg/5 mL Solution 30 ml PO BID 30 Days Qty: 1800 0RF Eliquis 2.5 mg Tablet 2.5 mg PO BID 30 Days Qty: 60 0RF sevelamer carbonate 800 mg Tablet 800 mg PO TIDWM 30 Days Qty: 90 1RF Continued lisinopril 20 mg tablet 20 mg PO QDAY amlodipine 10 mg tablet 10 mg PO QDAY Held ibuprofen 600 mg tablet 600 mg PO TID PRN (Reason: pain) Qty: 30 0RF Hold Instructions: Resume on 04/14/25. Hold as this is NSAID and new diagnosis of ESRD. Discontinued simvastatin 20 mg tablet 20 mg PO QPM Referrals: Scott Alexander MD [Primary Care Provider] - Patient/Caregiver Discharge Instructions Education Materials: Hemodialysis, Acute Kidney Failure Dc Print Language: Kazakh Stand Alone Forms: [employer] Award Info., Patient Portal Info Letter Discharge Order Discharge Orders: Discharge (Routine); Ordered 04/10/25 Ordered By: Tyra Diego Quality Discharge Quality Measures VTE prophylaxis
--- NOTE | 2025-04-10 13:48 | PC.NURSE ---
PER DR. GARCIA SHE IS COMING TO SEE PATIENT AT 1400, BEFORE DISCHARGE.
--- NOTE | 2025-04-10 14:47 | PD.RESPRO ---
Documentation for date of: 04/10/25 Subjective Subjective Interval history: Mr. Brian is a 80-year-old male with a past medical history of hypertension and hyperlipidemia, who came to the emergency room complaining of shortness of breath. On admission, patient initially complained of diarrhea for the past few days, patient was diagnosed with influenza a few days ago, continues to have flulike symptoms, associated with fever and chills. Patient reported he had diarrhea about 4 days before admission, had watery consistency, 3-4 episodes per day. Patient also initially noted some lower extremity edema and also some shortness of breath worse with exertion over a few days before admission. In the emergency room patient initial vitals BP 182/95, heart rate 64 saturating 95% on room air, initial labs pertinent for anemia, acidosis, BUN 74, creatinine 6.8, lactic acid WNL, BNP 899, urinalysis negative for UTI. Troponin elevated 0.269, Chest x-ray showed pneumonia with vascular congestion. EKG shows sinus rhythm. Renal consult requested for VIVEK. Today, patient states he is feeling much better. Denies any complaints/concerns. States he denies any headache, chest pain, shortness of breath, abdominal pain, flank pain, dysuria. Plan: - Dialysis Scheduled: Thursday at 11:30am. First session is 2024 at 11am at [address] [place]. [address] phone# [phone] 04/10/2025 Labs notable for Hgb 9.8, BUN 70, Cr 8.6, eGFR 6, Ca(renae) 10.6, Phos 8.1 Review of Systems CONSTITUTIONAL: Patient denies any fever, chills. HEENT: Denies any visual disturbances or hearing problems. CARDIOVASCULAR: Patient denies any chest pain. Denies shortness of breath, denies swelling in the lower extremities. PULMONARY: Patient denies shortness of breath, orthopnea GASTROINTESTINAL: Patient denies any abdominal pain, constipation, nausea, vomiting, diarrhea. GENITOURINARY: Patient denies any urinary symptoms of burning or frequency or hematuria, denies any form in the urine. SKIN: Skin in warm, dry and intact without rashes or lesions. Appropriate color for ethnicity. Nailbeds pink with no cyanosis or clubbing. MUSCULOSKELETAL: Endorses some weakness from being in hospital NEUROLOGICAL: Denies any neurological problems of strokes, seizures or confusion. Denies any memory problems. PSYCHIATRIC: Appropriate mood and affect.? Exam Vital Signs Temp Pulse Resp BP Pulse Ox O2 Del Method O2 Flow Rate 98.6 F 78 18 145/82 H 99 Nasal Cannula 2 04/10/25 11:56 04/10/25 12:46 04/10/25 12:46 04/10/25 12:22 04/10/25 12:46 04/10/25 07:48 04/10/25 12:46 Narrative Exam GENERAL APPEARANCE: Awake, alert and oriented. No acute distress. NECK: Neck supple, no JVD or bruit CARDIOVASCULAR: Heart regular, no murmurs LUNGS/CHEST: Lungs CTAB, no SOB ABDOMEN: Soft, nontender, nondistended. No masses. Normal bowel sounds. EXTREMITIES: No extremity edema noted SKIN: Skin in warm, dry and intact without rashes or lesions ++ IJ perm cath MSK: No misalignment, asymmetry, decreased range of motion, instability noted. PSYCHIATRIC: Appropriate mood and affect. NEUROLOGICAL : No neurological deficits Objective Labs 04/10/25 07:53 04/10/25 07:53 Labs: Laboratory Results - last 24 hr 04/10/25 07:53 WBC 10.6 RBC 3.26 L Hgb 9.8 L Hct 29.2 L MCV 90 MCH 30.1 MCHC 33.6 RDW Std Deviation 40.0 Plt Count 347 D Neut % (Auto) 73 Lymph % (Auto) 14 Mcnairy % (Auto) 9 Eos % (Auto) 2 Baso % (Auto) 0 Neut # (Auto) 7.7 Lymph # (Auto) 1.5 Mcnairy # (Auto) 0.9 H Eos # (Auto) 0.2 Baso # (Auto) 0.0 Immature Gran # (Auto) 0.19 H Absolute Nucleated RBC 0.00 Immature Gran % 2 H Nucleated RBC % 0 Sodium 139 Potassium 3.6 Chloride 95 L Carbon Dioxide 28.4 Anion Gap 16 BUN 70 H Creatinine 8.6 H* D Estim Creat Clear Calc 7.3 L eGFR 6 L* BUN/Creatinine Ratio 8 L Glucose 119 H Calculated Osmolality 299 H Calcium 10.6 Corrected Calcium 10.6 H Phosphorus 8.1 H Magnesium 2.3 Total Bilirubin 0.4 AST 18 ALT 26 Alkaline Phosphatase 58 Total Protein 8.0 Albumin 4.6 D Globulin 3.4 Albumin/Globulin Ratio 1.4 ABG Interpretation ABG results: 03/31/25 07:22 VBG pH 7.33 VBG pCO2 32 L VBG pO2 53 VBG Base Excess -8 L Quality Measures Quality Measures VTE prophylaxis Advance care planning discussed with:: patient and spouse Assessment & Plan Assessment Current Active Medications: Generic Name Dose Route Start Last Admin Trade Name Freq PRN Reason Stop Dose Admin Acetaminophen 650 mg 03/30/25 22:49 04/03/25 11:03 Acetaminophen 325 Mg Tablet PO 04/29/25 22:48 650 mg Q6H PRN Administration Fever >99.5 Acetaminophen 1,000 mg 03/31/25 01:43 04/09/25 20:39 Acetaminophen 500 Mg Tablet PO 04/30/25 01:40 1,000 mg Q6H PRN Administration PAIN SCALE 1-3 (mild Albuterol/Ipratropium 3 ml 03/30/25 22:49 Albuterol/Ipratropium (Duoneb) Rt Svetlana 3 Ml Nebu INH 04/29/25 22:48 Q2HR PRN SHORTNESS OF BREATH OR WHEEZE Albuterol/Ipratropium 3 ml 03/31/25 01:00 04/10/25 12:46 Albuterol/Ipratropium (Duoneb) Rt Svetlana 3 Ml Nebu INH 04/30/25 00:59 3 ml Q6HRRT SPARKLE Administration Amlodipine Besylate 10 mg 03/30/25 23:50 04/10/25 12:22 Amlodipine Besylate 5 Mg Tablet PO 04/29/25 23:49 10 mg QDAY SPARKLE Administration Apixaban 2.5 mg 04/08/25 21:00 04/10/25 07:59 Apixaban 2.5 Mg Tablet PO 05/08/25 20:59 2.5 mg BID SPARKLE Administration Atorvastatin Calcium 40 mg 03/31/25 21:00 04/09/25 20:34 Atorvastatin Calcium 20 Mg Tablet PO 04/30/25 20:59 40 mg HS SPARKLE Administration Citric Acid/Sodium Citrate 30 ml 03/31/25 09:00 04/10/25 07:59 Citric Acid/Sodium Citr 15 Ml Udc (Bicitra) PO 04/30/25 08:59 30 ml BID SPARKLE Administration Heparin Sodium (Porcine) 3,300 unit 04/05/25 18:50 04/10/25 12:11 Heparin Sod Inj 1000 Unit/Ml Vial 10 Ml INDWELLCAT 04/19/25 18:49 3,300 unit PRN PRN Administration DIALYSIS Albumin Human 25 gm in 100 mls @ 100 mls/min 04/01/25 10:03 Albuminar-25 Ivpb IV PRN PRN DIALYSIS Labetalol HCl 10 mg 04/01/25 07:56 04/05/25 04:27 Labetalol Inj 5 Mg/Ml Vial 20 Ml IVP 05/01/25 07:59 10 mg Q4HR PRN Administration SBP > 160mmHg Ondansetron HCl 4 mg 03/30/25 22:49 04/01/25 14:36 Ondansetron Inj 2 Mg/Ml Inj 2 Ml IVP 04/29/25 22:48 4 mg Q6H PRN Administration NAUSEA OR VOMITING Protocol Pharmacy Consult 1 each 03/31/25 07:33 Pharmacy Renal Dose Adjustment 1 Ea XX 04/30/25 07:32 PRN PRN CONSULT Sevelamer Carbonate 800 mg 04/06/25 12:00 04/10/25 12:20 Sevelamer Carbonate 800 Mg Tablet PO 05/06/25 11:59 800 mg TIDWM SPARKLE Administration Plan In summary, Scott Brian is a 80-year-old male with a past medical history of hypertension and hyperlipidemia, who came to the emergency room complaining of shortness of breath. On admission, patient initially complained of diarrhea for the past few days, patient was diagnosed with influenza a few days ago, continues to have flulike symptoms, associated with fever and chills. Patient reported he had diarrhea about 4 days before admission, had watery consistency, 3-4 episodes per day. Patient also initially noted some lower extremity edema and also some shortness of breath worse with exertion over a few days before admission. Renal consult requested for VIVEK due to ATN progressing to ESRD, on HD (). #ATN progressing to ESRD - on hemodialysis CT abdomen pelvis shows some perinephric stranding no hydronephrosis. However patient denies any flank pain, dysuria or urinary urgency. Renal ultrasound shows minimal dilation of the renal calyces. Nuclear renal US showed bilateral severely impaired renal function (04/04/2025). S/p new tunnel cath placement on 04/05. Plan: - Dialysis Scheduled: Thursday at 11:30am. First session is 2024 at 11am at [facility] [address] [address] phone# [phone] -Avoid nephrotoxins and renally dose medications -Strict I&O's -Hold home lisinopril -Continue Sevelamer-Carbonate 800 mg three times a day with meals to keep phosphate levels normal -continue all other medication as prescribed. #Hypertension #Type II VA #ATN progressing to ESRD - on hemodialysis #Acute hypoxic respiratory failure #Community-acquired pneumonia (Resolved) #Paroxysmal Afib - resolved #Diarrhea-resolved #Elevated troponin - resolved #Proctitis #Primary Hypertension #Hyperlipidemia ?Management per primary team Plan of care discussed with attending physician, Dr. Roland Laws MD PGY-1 Internal Medicine Attending Provider Attestation/Addendum Patient seen and examined with resident physician Dr. Laws. Note reviewed, agree with findings and recommendations with the few changes made. Patient presented with VIVEK secondary to ATN with no recovery. patient currently seen on dialysis. Tolerating dialysis without any problems. Hemodialysis for 3 hours, 2K, ultrafiltration 0 L, Epogen 6000, no heparin ordered. Plan of care discussed with the dialysis nurse. Please see dialysis flowsheet for further details. Outpatient dialysis arrangements made. Renal adan stable for discharge. Will see him in my office in 1 to 2 weeks. Plan of care discussed with his .
--- NOTE | 2025-04-10 15:09 | PC.NURSE ---
DR. GARCIA AT BEDSIDE ASSESSING PATIENT AND PROVIDING EDUCATION. NO NEW ORDERS.
== END 2025-04-10 15:35 | disposition home or self-care (01) | DRG 673 ==
LOC: SERX 22:08 → SERHOLD 23:10 → S2NX 03-31 01:22 → S3NX 04-10 00:24
PROVIDERS: Emergency Medicine; Internal Medicine; Physician Assistant; Radiology Diagnostic Radiology; Student in an Organized Health Care Education/Training Program; Admitting Provider Internal Medicine; Emergency Provider Emergency Medicine; PCP Family Medicine; Visit Provider Internal Medicine
DX: N17.0 Acute kidney failure with tubular necrosis (principal); J18.9 Pneumonia, unspecified organism; J96.01 Acute respiratory failure with hypoxia; E87.20 Acidosis, unspecified; I13.2 Hypertensive heart and chronic kidney disease with heart failure and with stage 5 chronic kidney disease, or end stage renal disease; N18.6 End stage renal disease; K62.89 Other specified diseases of anus and rectum; D50.9 Iron deficiency anemia, unspecified; I50.9 Heart failure, unspecified; E87.8 Other disorders of electrolyte and fluid balance, not elsewhere classified; I48.0 Paroxysmal atrial fibrillation; E78.5 Hyperlipidemia, unspecified; Z96.649 Presence of unspecified artificial hip joint; Z88.2 Allergy status to sulfonamides; Z79.01 Long term (current) use of anticoagulants; Z79.899 Other long term (current) drug therapy; Z99.2 Dependence on renal dialysis; R19.7 Diarrhea, unspecified; M79.89 Other specified soft tissue disorders
CPT/HCPCS: 36415; 71046; 74176; 76770; 76937; 77001; 78708; 80053; 80069; 80074; 80202; 80307; 81001; 82803; 83605; 83615; 83735; 83880; 84100; 84145; 84484; 85025; 85610; 85730; 86331; 86580; 86635; 86706; 87040; 87081; 87086; 87205; 87400; 87493; 87634; 87811; 93005; 93306; 94640; 96365; 96367; 96375; 99285; A4216; A9270; A9562; C1750; C1894; J0456; J0696; J1642; J1643; J1650; J2405; J2543; J2997; J3010; J3370; J3475; J3490; J7030; J7050; J7999; Q5105; J1920